=== PATIENT | male | born 1975 | race Caucasian/White ===

== ENCOUNTER 2020-08-22 15:42 | Outpatient (REF) | payer OTHER, SELFPAY | END 2020-08-22 15:43 | disposition home or self-care (01) | LOC: HO.BBR 15:42 | PROVIDERS: PCP Internal Medicine; Visit Provider Internal Medicine | DX: Z13.89 Encounter for screening for other disorder (principal) ==

== ENCOUNTER 2020-09-23 15:38 | Outpatient (REF) | payer OTHER, SELFPAY | END 2020-09-23 15:39 | disposition home or self-care (01) | LOC: HO.BBR 15:38 | PROVIDERS: Visit Provider Internal Medicine | DX: Z13.89 Encounter for screening for other disorder (principal) ==

== ENCOUNTER 2020-10-07 15:37 | Outpatient (REF) | payer OTHER, SELFPAY | END 2020-10-07 15:38 | disposition home or self-care (01) | LOC: HO.BBR 15:37 | PROVIDERS: Visit Provider Internal Medicine | DX: Z13.89 Encounter for screening for other disorder (principal) ==

== ENCOUNTER 2020-11-29 10:24 | Outpatient (REF) | payer OTHER, SELFPAY ==
[2020-11-29 11:15] LABS: MANUAL DIFF FLAG NO
[2020-11-29 11:19] LABS: Basophils Absolute Auto 0.1 X10*3/uL (0.0-0.2); Basophils Percent Auto 1.1 % (0-2); Eosinophils Absolute Auto 0.1 X10*3/uL (0.0-0.4); Eosinophils Percent Auto 2.7 % (0-4); Hematocrit 45.5 % (42-52); Hemoglobin 16.6 g/dl (14.0-18.0); Imm Gran Abs Auto 0.02 X10*3/uL (0.00-0.03); Imm Gran Pct Auto 0.4 % (0.0-0.4); Lymphocytes Percent Auto 37.2 % (20-40); Mean Corpuscular HGB Conc 36.5 g/dl (31.0-36.0); Mean Corpuscular Hemoglobin 31.7 pg (27.0-33.0); Mean Platelet Volume 8.7 fL (9.4-12.4); Monocytes Absolute Auto 0.4 X10*3/uL (0.1-1.2); Monocytes Percent Auto 6.7 % (2-11); Neutrophils Absolute Auto 2.7 X10*3/uL (2.0-8.3); Neutrophils Percent Auto 51.9 % (45-73); Platelet Count 232 X10*3/uL (160-400); Red Blood Count 5.23 X10*6/uL (4.60-5.80); Red Cell Distribution Width 12.2 % (11.0-16.0); White Blood Count 5.2 X10*3/uL (4.8-10.8)
[2020-11-29 11:44] LABS: Alanine Aminotransferase 31 U/L (0-40); Albumin Level 4.9 g/dL (3.5-5.0); Alkaline Phosphatase 79 U/L (39-117); Anion Gap 12 (12-20); Aspartate Amino Transferase 19 U/L (5-37); Bilirubin Total 1.4 mg/dL (0.0-1.0); Blood Urea Nitrogen 15 mg/dL (9-16); Calcium 9.9 mg/dL (8.4-10.2); Carbon Dioxide 28 mmol/L (22-29); Chloride 104 mmol/L (96-108); Cholesterol 203 mg/dL; Estimated Glomerular Filt Rate > 60; Glucose Fasting 93 mg/dL (60-99); HDL Cholesterol 39 mg/dL; LDL Cholesterol Calculated 115 mg/dl; Potassium 4.4 mmol/L (3.3-5.1); Sodium 140 mmol/L (135-145); Total Protein 7.3 g/dL (6.5-8.0); Triglycerides 249 mg/dL
[2020-11-29 12:26] LABS: Ferritin 285 ng/mL (20-250)
== END 2020-11-29 10:25 | disposition home or self-care (01) ==
LOC: HO.LAB 10:24
PROVIDERS: PCP Internal Medicine; Visit Provider Internal Medicine
DX: Z00.00 Encounter for general adult medical examination without abnormal findings (principal); D64.9 Anemia, unspecified; E11.9 Type 2 diabetes mellitus without complications
CPT/HCPCS: 36415; 80053; 80061; 82728; 85025

== ENCOUNTER → 2020-12-02 08:45 | Outpatient (BNV) | payer OTHER, SELFPAY | PROVIDERS: PCP Internal Medicine; Visit Provider Internal Medicine Medical Oncology | DX: E83.119 Hemochromatosis, unspecified (principal) | CPT/HCPCS: 99204; 99213; 99214 ==

== ENCOUNTER 2020-12-17 14:31 | Outpatient (REF) | payer OTHER, SELFPAY ==
[2020-12-17 16:10] LABS: Iron 281 mcg/dL (45-160); Unsaturated Iron Binding < 17 ug/dL
[2020-12-19 11:36] LABS: Alpha Fetoprotein 1.8 ng/mL (<6.1)
== END 2020-12-17 14:32 | disposition home or self-care (01) ==
LOC: HO.BBR 14:31
PROVIDERS: Visit Provider Internal Medicine Medical Oncology
DX: E83.110 Hereditary hemochromatosis (principal)
CPT/HCPCS: 36415; 82105; 83540

== ENCOUNTER 2021-02-16 14:27 | Outpatient (REF) | payer OTHER, SELFPAY | END 2021-02-16 14:28 | disposition home or self-care (01) | LOC: HO.BBR 14:27 | PROVIDERS: PCP Internal Medicine; Visit Provider Internal Medicine Medical Oncology | DX: Z13.89 Encounter for screening for other disorder (principal) ==

== ENCOUNTER 2021-04-13 15:29 | Outpatient (REF) | payer OTHER, SELFPAY | END 2021-04-13 15:30 | disposition home or self-care (01) | LOC: HO.BBR 15:29 | PROVIDERS: Visit Provider Internal Medicine Medical Oncology | DX: Z13.89 Encounter for screening for other disorder (principal) ==

== ENCOUNTER 2021-06-04 09:04 | Outpatient (REF) | payer OTHER, SELFPAY ==
[2021-06-04 09:45] LABS: MANUAL DIFF FLAG NO
[2021-06-04 09:50] LABS: Basophils Absolute Auto 0.1 X10*3/uL (0.0-0.2); Basophils Percent Auto 1.2 % (0-2); Eosinophils Absolute Auto 0.1 X10*3/uL (0.0-0.4); Eosinophils Percent Auto 2.2 % (0-4); Hematocrit 43.1 % (42.0-52.0); Imm Gran Abs Auto 0.02 X10*3/uL (0.00-0.03); Imm Gran Pct Auto 0.4 % (0.0-0.4); Lymphocytes Absolute Auto 1.5 X10*3/uL (1.2-4.9); Lymphocytes Percent Auto 29.4 % (20-40); Mean Corpuscular HGB Conc 37.1 g/dl (31.0-36.0); Mean Corpuscular Hemoglobin 32.3 pg (27.0-33.0); Mean Corpuscular Volume 86.9 fL (80.0-98.0); Mean Platelet Volume 8.5 fL (9.4-12.4); Monocytes Absolute Auto 0.3 X10*3/uL (0.1-1.2); Monocytes Percent Auto 5.6 % (2-11); Neutrophils Percent Auto 61.2 % (45-73); Platelet Count 196 X10*3/uL (160-400); Red Blood Count 4.96 X10*6/uL (4.60-5.80); Red Cell Distribution Width 11.9 % (11.0-16.0)
[2021-06-04 10:20] LABS: Alanine Aminotransferase 39 U/L (0-40); Albumin Level 4.4 g/dL (3.5-5.0); Alkaline Phosphatase 74 U/L (39-117); Anion Gap 13 (12-20); Aspartate Amino Transferase 23 U/L (5-37); Bilirubin Total 1.3 mg/dL (0.0-1.0); Blood Urea Nitrogen 18 mg/dL (9-16); Calcium 9.3 mg/dL (8.4-10.2); Carbon Dioxide 26 mmol/L (22-29); Chloride 105 mmol/L (96-108); Estimated Glomerular Filt Rate > 60; Glucose Random 136 mg/dL (60-115); Iron 288 mcg/dL (45-160); Sodium 140 mmol/L (135-145); Total Protein 6.7 g/dL (6.5-8.0); Unsaturated Iron Binding < 17 ug/dL
[2021-06-04 10:40] LABS: Ferritin 274 ng/mL (20-250)
[2021-06-09 13:02] LABS: Alpha Fetoprotein 2.2 ng/mL (<6.1)
== END 2021-06-04 09:05 | disposition home or self-care (01) ==
LOC: HO.BBR 09:04
PROVIDERS: PCP Internal Medicine; Visit Provider Internal Medicine Medical Oncology
DX: E83.110 Hereditary hemochromatosis (principal)
CPT/HCPCS: 36415; 80053; 82105; 82728; 83540; 85025

== ENCOUNTER 2021-08-25 15:32 | Outpatient (REF) | payer OTHER, SELFPAY | END 2021-08-25 15:33 | disposition home or self-care (01) | LOC: HO.BBR 15:32 | PROVIDERS: Visit Provider Internal Medicine Medical Oncology | DX: Z13.89 Encounter for screening for other disorder (principal) ==

== ENCOUNTER 2021-10-27 15:35 | Outpatient (REF) | payer OTHER, SELFPAY | END 2021-10-27 15:36 | disposition home or self-care (01) | LOC: HO.BBR 15:35 | PROVIDERS: Visit Provider Internal Medicine Medical Oncology | DX: Z13.89 Encounter for screening for other disorder (principal) ==

== ENCOUNTER 2022-01-05 15:28 | Outpatient (REF) | payer OTHER, SELFPAY ==
[2022-01-05 16:48] LABS: Iron 304 mcg/dL (45-160); Total Iron Binding Capacity < 321 mcg/dL (228-428); Unsaturated Iron Binding < 17 ug/dL
[2022-01-05 17:08] LABS: Ferritin 164 ng/mL (20-250)
== END 2022-01-05 15:29 | disposition home or self-care (01) ==
LOC: HO.BBR 15:28
PROVIDERS: Visit Provider Internal Medicine Medical Oncology
DX: E83.110 Hereditary hemochromatosis (principal)
CPT/HCPCS: 36415; 82728; 83540

== ENCOUNTER 2022-03-13 09:43 | Outpatient (REF) | payer OTHER, SELFPAY ==
[2022-03-13 11:04] LABS: Alanine Aminotransferase 41 U/L (0-40); Albumin Level 4.7 g/dL (3.5-5.0); Alkaline Phosphatase 81 U/L (39-117); Anion Gap 15 (12-20); Aspartate Amino Transferase 26 U/L (5-37); Bilirubin Total 1.2 mg/dL (0.0-1.0); Blood Urea Nitrogen 16 mg/dL (9-16); Calcium 9.3 mg/dL (8.4-10.2); Carbon Dioxide 22 mmol/L (22-29); Chloride 107 mmol/L (96-108); Cholesterol 222 mg/dL; Estimated Glomerular Filt Rate > 60; Glucose Fasting 106 mg/dL (60-99); HDL Cholesterol 39 mg/dL; LDL Cholesterol Calculated 138 mg/dl; Potassium 4.1 mmol/L (3.3-5.1); Sodium 140 mmol/L (135-145); Total Protein 7.2 g/dL (6.5-8.0); Triglycerides 225 mg/dL
== END 2022-03-13 09:44 | disposition home or self-care (01) ==
LOC: HO.LAB 09:43
PROVIDERS: PCP Internal Medicine; Visit Provider Internal Medicine
DX: I10 Essential (primary) hypertension (principal); E78.5 Hyperlipidemia, unspecified
CPT/HCPCS: 36415; 80053; 80061

== ENCOUNTER 2022-05-25 14:50 | Outpatient (REF) | payer OTHER, SELFPAY ==
[2022-05-25 16:47] LABS: Iron 299 mcg/dL (45-160); Percent Iron Saturation 95 % (15-50); Total Iron Binding Capacity 316 mcg/dL (228-428); Unsaturated Iron Binding 17 ug/dL
[2022-05-25 17:07] LABS: Ferritin 248 ng/mL (20-250)
== END 2022-05-25 14:51 | disposition home or self-care (01) ==
LOC: HO.BBR 14:50
PROVIDERS: Visit Provider Internal Medicine Medical Oncology
DX: E83.110 Hereditary hemochromatosis (principal)
CPT/HCPCS: 36415; 82728; 83540

== ENCOUNTER 2022-08-03 15:30 | Outpatient (REF) | payer OTHER, SELFPAY | END 2022-08-03 15:31 | disposition home or self-care (01) | LOC: HO.BBR 15:30 | PROVIDERS: PCP Internal Medicine; Visit Provider Internal Medicine Medical Oncology | DX: Z13.89 Encounter for screening for other disorder (principal) ==

== ENCOUNTER 2022-10-14 14:33 | Outpatient (REF) | payer OTHER, SELFPAY ==
--- NOTE | ~2022-10-14 | XR_ITS ---
EXAMINATION: XR lumbar spine 2-3V CLINICAL INFORMATION: Reason for Exam M54.9 - Dorsalgia, unspecified COMPARISON: None TECHNIQUE: 3 views of the lumbar spine FINDINGS: 5 nonrib-bearing lumbar-type vertebral bodies. Vertebral body heights are maintained. Alignment is maintained. Disc space heights are maintained. Paravertebral soft tissues are unremarkable. XR/XR lumbar spine 2-3V IMPRESSION: No significant spondylosis of the lumbar spine, as above detailed.
== END 2022-10-14 14:34 | disposition home or self-care (01) ==
LOC: HO.XRAY 14:33
PROVIDERS: Visit Provider Internal Medicine
DX: M54.9 Dorsalgia, unspecified (principal)
CPT/HCPCS: 72100

== ENCOUNTER 2022-11-29 15:36 | Outpatient (REF) | payer OTHER, SELFPAY | END 2022-11-29 15:37 | disposition home or self-care (01) | LOC: HO.BBR 15:36 | PROVIDERS: PCP Internal Medicine; Visit Provider Internal Medicine Medical Oncology | DX: Z13.89 Encounter for screening for other disorder (principal) ==

== ENCOUNTER 2023-01-05 07:36 | Emergency (ER) | payer OTHER, SELFPAY ==
--- NOTE | ~2023-01-05 | XR_ITS ---
EXAMINATION: XR CHEST CLINICAL INFORMATION: Dizziness and low blood pressure COMPARISON: None available. TECHNIQUE: 2 views of the chest were obtained. FINDINGS: No significant abnormality is noted involving the heart, lungs, mediastinum, bony thorax or soft tissues. XR/XR chest 2V IMPRESSION: Unremarkable examination.
--- NOTE | ~2023-01-05 | CT_ITS ---
EXAMINATION: CT ABDOMEN AND PELVIS WITHOUT CONTRAST CLINICAL INFORMATION: 47-year-old male with bilateral flank pain COMPARISON: None available. TECHNIQUE: Multidetector volumetric imaging was performed from the superior aspect of the liver through the pubic symphysis. Sagittal and coronal reformatted images were obtained on the technologist's workstation. This CT examination was performed using dose optimization techniques as appropriate, variously including the following: *Automated exposure control *Adjustment of mA and/or kV according to patient size (this includes techniques or standardized protocols for targeted exams where dose is matched to indication/reason for exam; i.e. extremities or head) *Use of iterative reconstruction technique DLP: 615 mGy-cm FINDINGS: LUNG BASES: The visualized lung bases are unremarkable. LIVER, GALLBLADDER, AND BILIARY TREE: Liver is of low attenuation due to hepatic steatosis without intrahepatic masses or ductal dilatation. The gallbladder is unremarkable with no evidence of radiopaque gallstones, gallbladder wall thickening, or obvious pericholecystic inflammatory changes. PANCREAS: Unremarkable SPLEEN: Measures 15 cm, enlarged ADRENAL GLANDS: Unremarkable. KIDNEYS AND URETERS: The kidneys are normal in size, shape, and attenuation. No hydronephrosis, hydroureter, or calculi seen. No perinephric stranding. BLADDER: Bladder is decompressed, limited for evaluation GASTROINTESTINAL TRACT: The small and large bowel are unremarkable. The appendix is unremarkable. ABDOMINAL WALL: No significant hernia is appreciated. LYMPH NODES: Normal. VASCULAR: Unremarkable. PELVIC VISCERA: Unremarkable. OSSEOUS STRUCTURES: Unremarkable. CT/CT abdomen pelvis wo IV con IMPRESSION: Hepatic steatosis and splenomegaly. Fleischner guidelines were followed.
--- NOTE | 2023-01-05 07:42 | ED.GENADULT ---
HPI - General Adult General Chief complaint: Dizziness Stated complaint: ? BP dropped, fatigue, dizzy, SOB Time Seen by Provider: 01/05/23 07:42 Source: patient Mode of arrival: ambulatory Limitations: no limitations History of Present Illness HPI narrative: Patient is a 47 year old male with a history of hypertension and hemachromatosis presenting today after an episode of dizziness. He reports that on Tuesday (01/03), he felt fatigued and experienced increased urination. Yesterday, he had a fever and endorsed continued nocturia without polydipsia. Patient also states that he experienced a near syncopal episode and was found by his sitting on the floor. His took his blood pressure and it was 91/84. He reports associated symptoms of shortness of breath, chronic back pain and fatigue. Additionally, his tells me that he had a strawberry rash on his right flank in November that resolved on its own. He denies abdominal pain, fever, chills, cough or congestion. He reports no acute concerns at this time. Onset (ago): day(s) Severity: mild Severity scale (1-10): 3 Relieving factors: none Exacerbating factors: none Associated symptoms: denies other symptoms Treatments prior to arrival: none Related Data Previous Rx's Medication Instructions Recorded albuterol sulfate 90 mcg/actuation 2 puff PO Q6H PRN bronchospasm #18 04/09/22 aerosol inhaler (ProAir HFA) grams tramadol 50 mg tablet 50 mg PO Q8H PRN pain #20 tabs 10/14/22 naproxen 500 mg tablet (Naprosyn) 500 mg PO BID PRN pain #60 tabs 10/15/22 prednisone 20 mg tablet 20 mg PO DAILY 7 days #7 tabs 01/05/23 Allergies Allergy/AdvReac Type Severity Reaction Status Date / Time No Known Allergies Allergy Verified 01/05/23 07:49 Review of Systems Constitutional: Constitutional: Reports no additional constitutional complaints, Denies chills, Denies fever(s) and Denies night sweats Eyes: Eyes: Reports no additional eye complaints, Denies blurry vision, Denies change in vision, Denies diplopia, Denies eye discharge, Denies loss of vision and Denies eye pain ENT: Reports dizziness Cardiovascular: Cardiovascular: Reports no additional cardiovascular complaints, Denies chest pain, Denies lightheadedness, Denies Loss of Consciousness and Denies dyspnea Respiratory: Respiratory: Reports no additional respiratory complaints and Denies dyspnea Gastrointestinal: Gastrointestinal: Reports no additional gastrointestinal complaints, Denies abdominal pain, Denies melena, Denies hematochezia, Denies change in bowel habits and Denies change in stool character Genitourinary: Genitourinary: Reports no additional male genitourinary complaints, Denies hematuria, Denies oliguria, Denies difficulty urinating, Denies dysuria, Denies urinary frequency, Denies urinary hesitancy, Denies urinary incontinence and Denies urinary urgency Musculoskeletal: Musculoskeletal: Reports no additional musculoskeletal complaints, Reports back pain, Denies numbness and Denies tingling Neurologic: Reports dizziness, Denies loss of vision, Denies numbness and Denies tingling Psychiatric: Psychiatric: Reports no additional psychiatric complaints Endocrine: Endocrine: Reports no additional endocrine complaints Hematologic/Lymphatic: Hematologic/Lymphatic: Reports no additional hematologic/lymphatic complaints Allergic/Immunologic: Allergic/Immunologic: Reports no additional allergic/immunologic complaints PMFSH Past Medical History Attestation statement: The following information was validated with the patient. (patient's validated all information) Source: old records reviewed, obtained from family (patient's ) and nursing notes reviewed Medical History Hemochromatosis Obesity Surgical History History of colonoscopy History of endoscopy History of liver biopsy Family History Family History Mother No problems noted. Father Colon cancer Heart disease Hypertension Paternal Aunt Breast cancer Social History Social History Household Members: None Housing: Apartment Are you a primary veterinarian laboratory animal care to a significant other at home: No Do you presently have visiting nurse or other home services: No Alcohol intake: current Alcohol intake frequency: holidays/special occasions only Patient Tobacco Use Status: Never used Tobacco e-Cigarette/Vaping Use: Never Used Second Hand Smoke Exposure: No Substance Use Type: Marijuana Advance Directives: No Advance Directives Information Provided: Yes service: Yes Current occupational status: employed Cognitive needs: No Hearing needs: No Vision needs: No Physical Exam ED Vital Signs: Vital Signs - 24 hr 01/05/23 07:46 01/05/23 09:18 01/05/23 09:19 Temperature 98.4 F Pulse Rate 110 H 84 76 Respiratory Rate 19 Blood Pressure 131/86 116/81 107/69 Pulse Oximetry 98 Oxygen Delivery Method Room Air 01/05/23 09:20 01/05/23 10:59 Temperature Pulse Rate 88 78 Respiratory Rate 18 Blood Pressure 101/74 111/71 Pulse Oximetry 98 Oxygen Delivery Method BMI result Body Mass Index 31.8 Const General: cooperative, no acute distress, alert and awake Nutritional Appearance: well nourished Orientation/consciousness: patient oriented x3 Limitations: no limitations HENMT Head: Yes normal to inspection and Yes atraumatic Ears: hearing grossly normal bilaterally and external ears normal General nose exam: Normal external nose present, no nasal discharge noted and no epistaxis Face and sinus: Yes normal facial exam, No abrasion and No laceration Mouth: Normal oral and palatal mucosa present, no drooling and no muffled voice Eyes General: appearance normal, both eyes and all related structures Periorbital: periorbital findings normal Eyelids: Yes eyelids normal Conjunctivae: conjunctivae normal Pupils: Equal, round and reactive pupils present EOM: EOMs intact bilaterally Neck Neck: Yes normal visual inspection, Yes full ROM and Yes no lymphadenopathy Chest Chest palpation & inspection: normal inspection of the chest Resp Effort & Inspection: normal respiratory effort and able to speak in complete sentences Auscultation: clear to auscultation bilaterally Cardio Rate: regular rate Rhythm: regular rhythm Heart sounds: S1 normal heart sound present and S2 normal heart sound present GI Inspection: Yes normal to inspection Palpation (GI): Soft to palpation, not firm, nontender and no guarding General: Yes no CVA tenderness Back/Spine/Pelvis Back: no CVA tenderness Cervical Spine: normal cervical lordosis and cervical ROM normal Thoracic/Lumbar Spine: thoracic and lumbar spine normal to inspection and thoraco-lumbar ROM normal Pelvis: no pain with anterior-posterior compression Skin General skin exam: no rashes or lesions noted Neuro General: patient oriented x3 and moves all extremities Cranial nerves: Yes Equal, round and reactive pupils present Cognition (Neuro): normal cognition Motor exam (neuro): 5/5 motor strength present throughout Sensory Exam: Normal double simultaneous stimulation for sensation Coordination: [id number] test normal Extrem General: Yes normal to inspection and Yes full ROM Psych Appearance: grossly normal Mental Status: mental status grossly normal Affect: normal affect Attitude: cooperative Thought process: Normal thought process present Thought content: Normal thought content present Insight: Good insight present (Psych) Medications Administered Discontinued Medications Generic Name Dose Route Start Last Admin Trade Name Jelaniq PRN Reason Stop Dose Admin Sodium Chloride 1,000 mls @ 999 mls/hr 01/05/23 08:00 01/05/23 09:33 Ns IV 01/05/23 09:00 999 mls/hr .Q1H1M [facility] Administration Medical Decision Making Medical Decision Making [facility] Narrative: Patient is a 47 year old assigned male at with a history of hypertension and hemachromatosis presenting to the emergency department today after an episode of dizziness. Patient's physical exam was unremarkable. Patient's blood work was unremarkable. Patient's urine showed no acute process. Patient's EKG was unremarkable. Patient's chest x-ray and abdomen/pelvis CT showed no acute process. I explained my physical exam findings as well as all test results to the patient and the patient's . I answered all questions asked by the patient and the patient's . Patient received IV fluids which he stated helped his symptoms significantly. Patient's orthostatic vital signs were normal. I stressed the importance of the patient taking his medication as prescribed. I stressed the importance of the patient following up with his primary care provider. I stressed the importance of the patient returning to the emergency department immediately if his symptoms were to worsen or if he were to develop any dizziness, shortness of breath, difficulty breathing, chest pain, blurry vision, loss of vision, nausea, vomiting, abdominal pain, fever, chills, back pain, or any other complaints. Patient and the patient's verbalized agreement and understanding with this treatment plan and discharge. Differential Diagnosis Differential Diagnoses: The differential diagnosis associated with the presentation includes viral illness, dehydration Admission/Observation Consideration of admission/observation: Escalation of care including admission/observation considered Patient would have been admitted to the hospital had his work up had any findings where hospital admission was appropriate. Lab Data [facility] Lab Attestation statement: I reviewed the patient's lab results. My interpretation of these studies and their corresponding values is that they are grossly normal. 01/05/23 08:50 01/05/23 08:50 Labs: Lab Results 01/05/23 01/05/23 01/05/23 Range/Units 08:50 08:50 08:50 WBC 6.1 (4.8-10.8) X10*3/uL RBC 4.56 L (4.60-5.80) X10*6/uL Hgb 14.4 (14.0-18.0) g/dl Hct 39.9 L (42.0-52.0) % MCV 87.5 (80.0-98.0) fL MCH 31.6 (27.0-33.0) pg MCHC 36.1 H (31.0-36.0) g/dl RDW 13.2 (11.0-16.0) % Plt Count 194 (160-400) X10*3/uL MPV 8.2 L (9.4-12.4) fL Immature Gran % (Auto) 0.3 (0.0-0.4) % Neut % (Auto) 65.2 (45-73) % Lymph % (Auto) 19.2 L (20-40) % [place] % (Auto) 12.5 H (2-11) % Eos % (Auto) 2.0 (0-4) % Baso % (Auto) 0.8 (0-2) % Lymph # (Auto) 1.2 (1.2-4.9) X10*3/uL [place] # (Auto) 0.8 (0.1-1.2) X10*3/uL Eos # (Auto) 0.1 (0.0-0.4) X10*3/uL Baso # (Auto) 0.1 (0.0-0.2) X10*3/uL Abs Immat Gran (auto) 0.02 (0.00-0.03) X10*3/uL Absolute Neuts (auto) 4.0 (2.0-8.3) x10*3/uL Absolute Nucleated RBC 0.000 (0.0-0.012) X10*3/uL Nucleated RBC % (auto) 0.0 (0.0-0.2) /100WBC Sodium 140 (135-145) mmol/L Potassium 4.5 (3.3-5.1) mmol/L Chloride 106 (96-108) mmol/L Carbon Dioxide 24 (22-29) mmol/L Anion Gap 15 (12-20) BUN 15 (9-16) mg/dL Creatinine 0.80 (0.5-1.4) mg/dL Estim Creat Clear Calc 123.5 Estimated GFR > 60 Random Glucose 100 (60-115) mg/dL Estimat Average Glucose mg/dL Hemoglobin A1c % % Calcium 9.3 D (8.4-10.2) mg/dL Magnesium 2.1 (1.6-2.6) mg/dL Total Bilirubin 2.7 H (0.0-1.0) mg/dL AST 28 (5-37) U/L ALT 32 (0-40) U/L Alkaline Phosphatase 68 (39-117) U/L Total Creatine Kinase (38-174) U/L Troponin I High Sens < 2.7 (<3.5-35.0) ng/L Total Protein 6.9 (6.5-8.0) g/dL Albumin 4.3 (3.5-5.0) g/dL Lipase (8-78) U/L Urine Color Urine Appearance Urine pH (5.0-9.0) Ur Specific [place] (1.005-1.025) Urine Protein (Neg-Trace) mg/dL Urine Glucose (UA) (Negative) mg/dL Urine Ketones (Negative) mg/dL Urine Blood (Negative) Urine Nitrite (Negative) Ur Leukocyte Esterase (Negative) Urine RBC (0-2) /HPF Urine WBC (0-5) /HPF Ur Squamous Epith Cells (0-2) /HPF Urine Bacteria (None Seen) Hyaline Casts (0-2) /LPF COVID-19 (VASILE) (Negative) COVID-19 Clin Com Monoscreen (Negative) S. pyogenes GrpA BHARAT (Negative) 01/05/23 01/05/23 01/05/23 Range/Units 08:50 08:50 08:54 WBC (4.8-10.8) X10*3/uL RBC (4.60-5.80) X10*6/uL Hgb (14.0-18.0) g/dl Hct (42.0-52.0) % MCV (80.0-98.0) fL MCH (27.0-33.0) pg MCHC (31.0-36.0) g/dl RDW (11.0-16.0) % Plt Count (160-400) X10*3/uL MPV (9.4-12.4) fL Immature Gran % (Auto) (0.0-0.4) % Neut % (Auto) (45-73) % Lymph % (Auto) (20-40) % [place] % (Auto) (2-11) % Eos % (Auto) (0-4) % Baso % (Auto) (0-2) % Lymph # (Auto) (1.2-4.9) X10*3/uL [place] # (Auto) (0.1-1.2) X10*3/uL Eos # (Auto) (0.0-0.4) X10*3/uL Baso # (Auto) (0.0-0.2) X10*3/uL Abs Immat Gran (auto) (0.00-0.03) X10*3/uL Absolute Neuts (auto) (2.0-8.3) x10*3/uL Absolute Nucleated RBC (0.0-0.012) X10*3/uL Nucleated RBC % (auto) (0.0-0.2) /100WBC Sodium (135-145) mmol/L Potassium (3.3-5.1) mmol/L Chloride (96-108) mmol/L Carbon Dioxide (22-29) mmol/L Anion Gap (12-20) BUN (9-16) mg/dL Creatinine (0.5-1.4) mg/dL Estim Creat Clear Calc Estimated GFR Random Glucose (60-115) mg/dL Estimat Average Glucose 68 mg/dL Hemoglobin A1c % 4.0 % Calcium (8.4-10.2) mg/dL Magnesium (1.6-2.6) mg/dL Total Bilirubin (0.0-1.0) mg/dL AST (5-37) U/L ALT (0-40) U/L Alkaline Phosphatase (39-117) U/L Total Creatine Kinase (38-174) U/L Troponin I High Sens (<3.5-35.0) ng/L Total Protein (6.5-8.0) g/dL Albumin (3.5-5.0) g/dL Lipase (8-78) U/L Urine Color [place] A Urine Appearance Clear Urine pH 6.0 (5.0-9.0) Ur Specific [place] 1.025 (1.005-1.025) Urine Protein Trace (Neg-Trace) mg/dL Urine Glucose (UA) Negative (Negative) mg/dL Urine Ketones Trace (Negative) mg/dL Urine Blood Negative (Negative) Urine Nitrite Negative (Negative) Ur Leukocyte Esterase Trace H (Negative) Urine RBC 0-2 (0-2) /HPF Urine WBC 0-5 (0-5) /HPF Ur Squamous Epith Cells 0-2 (0-2) /HPF Urine Bacteria None Seen (None Seen) Hyaline Casts 3-5 (0-2) /LPF COVID-19 (VASILE) Negative (Negative) COVID-19 Clin Com See Note Monoscreen (Negative) S. pyogenes GrpA BHARAT (Negative) 01/05/23 01/05/23 01/05/23 Range/Units 09:40 09:40 09:40 WBC (4.8-10.8) X10*3/uL RBC (4.60-5.80) X10*6/uL Hgb (14.0-18.0) g/dl Hct (42.0-52.0) % MCV (80.0-98.0) fL MCH (27.0-33.0) pg MCHC (31.0-36.0) g/dl RDW (11.0-16.0) % Plt Count (160-400) X10*3/uL MPV (9.4-12.4) fL Immature Gran % (Auto) (0.0-0.4) % Neut % (Auto) (45-73) % Lymph % (Auto) (20-40) % [place] % (Auto) (2-11) % Eos % (Auto) (0-4) % Baso % (Auto) (0-2) % Lymph # (Auto) (1.2-4.9) X10*3/uL [place] # (Auto) (0.1-1.2) X10*3/uL Eos # (Auto) (0.0-0.4) X10*3/uL Baso # (Auto) (0.0-0.2) X10*3/uL Abs Immat Gran (auto) (0.00-0.03) X10*3/uL Absolute Neuts (auto) (2.0-8.3) x10*3/uL Absolute Nucleated RBC (0.0-0.012) X10*3/uL Nucleated RBC % (auto) (0.0-0.2) /100WBC Sodium (135-145) mmol/L Potassium (3.3-5.1) mmol/L Chloride (96-108) mmol/L Carbon Dioxide (22-29) mmol/L Anion Gap (12-20) BUN (9-16) mg/dL Creatinine (0.5-1.4) mg/dL Estim Creat Clear Calc Estimated GFR Random Glucose (60-115) mg/dL Estimat Average Glucose mg/dL Hemoglobin A1c % % Calcium (8.4-10.2) mg/dL Magnesium (1.6-2.6) mg/dL Total Bilirubin (0.0-1.0) mg/dL AST (5-37) U/L ALT (0-40) U/L Alkaline Phosphatase (39-117) U/L Total Creatine Kinase 36 L (38-174) U/L Troponin I High Sens (<3.5-35.0) ng/L Total Protein (6.5-8.0) g/dL Albumin (3.5-5.0) g/dL Lipase 23 (8-78) U/L Urine Color Urine Appearance Urine pH (5.0-9.0) Ur Specific [place] (1.005-1.025) Urine Protein (Neg-Trace) mg/dL Urine Glucose (UA) (Negative) mg/dL Urine Ketones (Negative) mg/dL Urine Blood (Negative) Urine Nitrite (Negative) Ur Leukocyte Esterase (Negative) Urine RBC (0-2) /HPF Urine WBC (0-5) /HPF Ur Squamous Epith Cells (0-2) /HPF Urine Bacteria (None Seen) Hyaline Casts (0-2) /LPF COVID-19 (VASILE) (Negative) COVID-19 Clin Com Monoscreen Negative (Negative) S. pyogenes GrpA BHARAT Negative (Negative) Independent Interpretation I performed an independent interpretation of an: EKG, Plain X-Ray and CT Scan Interpretation: Vent. Rate: 088 BPM ? ? Atrial Rate: 088 BPM P-R Int: 142 ms? QRS Dur: 086 ms QT Int: 344 ms ? ? ? P-R-T Axes: 034 -10 013 degrees QTc Int: 416 ms ? Normal sinus rhythm Normal ECG No previous ECGs available ? Electronically Signed By:SURJIT GONZALES MD Dictated By: Surjit Gonzales MD Signed By: Electronically signed by Surjit Gonzales MD 01/05/23 1149 My interpretation is in agreement with the radiologist's impression of this imaging study. EXAMINATION: XR CHEST CLINICAL INFORMATION: Dizziness and low blood pressure COMPARISON: None available. TECHNIQUE: 2 views of the chest were obtained. FINDINGS: No significant abnormality is noted involving the heart, lungs, mediastinum, bony thorax or soft tissues. XR/XR chest 2V IMPRESSION: Unremarkable examination. Dictated By: Jenn Ortiz MD Signed By: Electronically signed by Jenn Ortiz MD 01/05/23 0906 EXAMINATION: CT ABDOMEN AND PELVIS WITHOUT CONTRAST? CLINICAL INFORMATION: 47-year-old male with bilateral flank pain? COMPARISON: None available. TECHNIQUE: Multidetector volumetric imaging was performed from the superior aspect of the liver through the pubic symphysis. Sagittal and coronal reformatted images were obtained on the technologist's workstation.? This CT examination was performed using dose optimization techniques as appropriate, variously including the following: *Automated exposure control *Adjustment of mA and/or kV according to patient size (this includes techniques or standardized protocols for targeted exams where dose is matched to indication/reason for exam; i.e. extremities or head) *Use of iterative reconstruction technique DLP: 615 mGy-cm FINDINGS: LUNG BASES: The visualized lung bases are unremarkable.? LIVER, GALLBLADDER, AND BILIARY TREE: Liver is of low attenuation due to hepatic steatosis without intrahepatic masses or ductal dilatation. The gallbladder is unremarkable with no evidence of radiopaque gallstones, gallbladder wall thickening, or obvious pericholecystic inflammatory changes.? PANCREAS: Unremarkable? SPLEEN: Measures 15 cm, enlarged? ADRENAL GLANDS: Unremarkable.? KIDNEYS AND URETERS: The kidneys are normal in size, shape, and attenuation. No hydronephrosis, hydroureter, or calculi seen. No perinephric stranding. ? BLADDER: Bladder is decompressed, limited for evaluation? GASTROINTESTINAL TRACT: The small and large bowel are unremarkable. The appendix is unremarkable.? ABDOMINAL WALL: No significant hernia is appreciated.? LYMPH NODES: Normal. VASCULAR: Unremarkable. PELVIC VISCERA: Unremarkable.? OSSEOUS STRUCTURES: Unremarkable.? CT/CT abdomen pelvis wo IV con IMPRESSION: Hepatic steatosis and splenomegaly. ? Fleischner guidelines were followed. Dictated By: Jenn Ortiz MD Signed By: Electronically signed by Jenn Ortiz MD 01/05/23 0903 Independent Historian Clinical information obtained from an independent historian. History obtained from or confirmed by: Spouse (patient's provided additional history and confirmed the history provided by the patient) Chronic Conditions Patient?s care impacted by: Hypertension Critical Care Time Critical Care Time Critical Care Time: Yes Total Critical Care Time: 30 Attestation: I spent 30 minutes of Critical Care Time with this patient. This does not include time spent on separately reported billable procedures. Discharge Plan Discharge Clinical Impression: Viral illness Patient Disposition: Home, Self-Care Instructions: Viral Syndrome (ED) Additional Instructions: Follow up with your primary care provider. Return to the emergency department immediately if your symptoms worsen or if you develop any dizziness, shortness of breath, difficulty breathing, chest pain, blurry vision, loss of vision, nausea, vomiting, abdominal pain, fever, chills, back pain, or any other complaints. Prescriptions: New prednisone 20 mg tablet 20 mg PO DAILY 7 Days Qty: 7 0RF No Action naproxen [Naprosyn] 500 mg tablet 500 mg PO BID PRN (Reason: pain) Qty: 60 0RF albuterol sulfate [ProAir HFA] 90 mcg/actuation HFA aerosol inhaler 2 puff PO Q6H PRN (Reason: bronchospasm) Qty: 18 8RF tramadol 50 mg tablet 50 mg PO Q8H PRN (Reason: pain) Qty: 20 0RF Referrals: Nasir Castro MD [Primary Care Provider] - Stand Alone Forms: Work/School Release Interventions: ED Discharge Assessment Last Done: 01/05/23 11:01 Discharge Date/Time: 01/05/23 11:01 Print Language: Cam[place]onian
[2023-01-05 07:46] VITALS: BP 131/86; PULSE 110; RESP 19; TEMP 36.9; O2SAT 98; BMI 31.8
--- NOTE | 2023-01-05 07:48 | ECG_ITS ---
Test Reason : dizzy Blood Pressure : / mmHG Vent. Rate : 088 BPM Atrial Rate : 088 BPM P-R Int : 142 ms QRS Dur : 086 ms QT Int : 344 ms P-R-T Axes : 034 -10 013 degrees QTc Int : 416 ms Normal sinus rhythm Normal ECG No previous ECGs available Referred By: Daniella Jeffers Electronically Signed By:JOSE LUIS GONZALES MD
[2023-01-05 08:55] LABS: MANUAL DIFF FLAG NO
[2023-01-05 08:57] LABS: Basophils Absolute Auto 0.1 X10*3/uL (0.0-0.2); Basophils Percent Auto 0.8 % (0-2); Eosinophils Absolute Auto 0.1 X10*3/uL (0.0-0.4); Hematocrit 39.9 % (42.0-52.0); Hemoglobin 14.4 g/dl (14.0-18.0); Imm Gran Abs Auto 0.02 X10*3/uL (0.00-0.03); Imm Gran Pct Auto 0.3 % (0.0-0.4); Lymphocytes Absolute Auto 1.2 X10*3/uL (1.2-4.9); Lymphocytes Percent Auto 19.2 % (20-40); Mean Corpuscular HGB Conc 36.1 g/dl (31.0-36.0); Mean Corpuscular Hemoglobin 31.6 pg (27.0-33.0); Mean Corpuscular Volume 87.5 fL (80.0-98.0); Mean Platelet Volume 8.2 fL (9.4-12.4); Monocytes Absolute Auto 0.8 X10*3/uL (0.1-1.2); Monocytes Percent Auto 12.5 % (2-11); Neutrophils Percent Auto 65.2 % (45-73); Platelet Count 194 X10*3/uL (160-400); Red Blood Count 4.56 X10*6/uL (4.60-5.80); Red Cell Distribution Width 13.2 % (11.0-16.0); White Blood Count 6.1 X10*3/uL (4.8-10.8)
[2023-01-05 09:10] LABS: Appearance Urine Clear; Color Urine Orange; Glucose Urine UA Negative (Negative); Leukocyte Esterase Urine Trace (Negative); Nitrite Urine Negative (Negative); Specific Gravity - Urine 1.025 (1.005-1.025); UMIC TRIGGER UACC YES; Urine Blood Negative (Negative); Urine Ketones Trace mg/dL (Negative); Urine Protein Trace mg/dL (Neg-Trace)
[2023-01-05 09:10] LABS: Estimated Average Glucose 68 mg/dL
[2023-01-05 09:11] LABS: Alanine Aminotransferase 32 U/L (0-40); Albumin Level 4.3 g/dL (3.5-5.0); Alkaline Phosphatase 68 U/L (39-117); Anion Gap 15 (12-20); Aspartate Amino Transferase 28 U/L (5-37); Bilirubin Total 2.7 mg/dL (0.0-1.0); Blood Urea Nitrogen 15 mg/dL (9-16); Calcium 9.3 mg/dL (8.4-10.2); Carbon Dioxide 24 mmol/L (22-29); Chloride 106 mmol/L (96-108); Creatinine Clr Calc Pharmacy 123.5; Estimated Glomerular Filt Rate > 60; Glucose Random 100 mg/dL (60-115); Magnesium 2.1 mg/dL (1.6-2.6); Potassium 4.5 mmol/L (3.3-5.1); Sodium 140 mmol/L (135-145); Total Protein 6.9 g/dL (6.5-8.0)
[2023-01-05 09:13] LABS: Bacteria Urine None Seen (None Seen); RBC Urine 0-2 /HPF (0-2); Squamous Epithelial Cell Urine 0-2 /HPF (0-2); WBC Urine 0-5 /HPF (0-5)
[2023-01-05 09:17] LABS: COVID-19 Test Negative (Negative); IDNOW Serial# 9DB6401D
[2023-01-05 09:18] VITALS: BP 116/81; PULSE 84
[2023-01-05 09:19] VITALS: BP 107/69; PULSE 76
[2023-01-05 09:20] VITALS: BP 101/74; PULSE 88
[2023-01-05 09:22] LABS: Troponin-I High Sensitivity < 2.7 ng/L (<3.5-35.0)
[2023-01-05] MEDS: 0.9 % Sodium Chloride 1,000 ML 999 ML IV (09:33)
[2023-01-05 10:09] LABS: Lipase 23 U/L (8-78)
[2023-01-05 10:10] LABS: IDNOW Serial# 08D9AD1C; Strep A Nucleic Acid Negative (Negative)
[2023-01-05 10:20] LABS: Monotest Negative (Negative)
[2023-01-05 10:59] VITALS: BP 111/71; PULSE 78; RESP 18; O2SAT 98
--- NOTE | 2023-01-05 10:59 | PC.NURSE ---
alert. speech clear, still has some generalized weakness but improved, skin wpd, inst reviewed
[2023-01-08 14:53] LABS: A. Phagocytphilium DNA,RT-PCR NOT DETECTED (NOT DETECTED); Babesia Microti DNA, RT-PCR NOT DETECTED (NOT DETECTED); Borrelia Miyamotoi,DNA RT-PCR NOT DETECTED (NOT DETECTED); E.Chaffeensis DNA RT-PCR NOT DETECTED (NOT DETECTED); Lyme(Borrelia ssp)DNA RT-PCR NOT DETECTED (NOT DETECTED)
== END 2023-01-05 11:01 | disposition home or self-care (01) ==
PROVIDERS: Physician Assistant Medical; Emergency Provider Internal Medicine; PCP Internal Medicine
DX: B34.9 Viral infection, unspecified (principal); R42 Dizziness and giddiness; R35.1 Nocturia; M54.9 Dorsalgia, unspecified; R21 Rash and other nonspecific skin eruption; R06.02 Shortness of breath; I10 Essential (primary) hypertension; E83.119 Hemochromatosis, unspecified; Z20.822 Contact with and (suspected) exposure to COVID-19
CPT/HCPCS: 36415; 71046; 74176; 80053; 81001; 81003; 82550; 83036; 83690; 83735; 84484; 85025; 86308; 87635; 87651; 87798; 87801; 93005; 99284

== ENCOUNTER 2023-02-01 15:27 | Outpatient (REF) | payer OTHER, SELFPAY | END 2023-02-01 15:28 | disposition home or self-care (01) | LOC: HO.BBR 15:27 | PROVIDERS: PCP Internal Medicine; Visit Provider Internal Medicine Medical Oncology | DX: Z13.89 Encounter for screening for other disorder (principal) ==

== ENCOUNTER 2023-03-10 14:24 | Outpatient (AMB) | payer OTHER, SELFPAY ==
--- NOTE | 2023-03-10 14:37 | MHC.PC.OV ---
Vital Signs 03/10/23 14:38 Height 5 ft 7 in Weight 202 lb 4 oz BMI 31.7 BP 110/76 Blood Pressure Location Lt brachial Position Sitting Pulse 84 Pulse Source Pulse Oximeter Pulse Oximetry (%) 98 Oxygen Delivery Method Room Air Intake Visit Reasons: Annual Exam Intake Note: Patient is here today for a physical. Capacity Analyst Required: No Soaker Meat: Not Required per policy Accompanied by: Self / Same As Patient Allergies tramadol Allergy (Severe, Verified 03/10/23 14:41) Anaphylaxis Medication List - Last Reconciled 03/11/23 by Nasir Castro MD naproxen (Naprosyn) 500 mg PO BID PRN Tobacco use date assessed: 03/10/23 Dental Screening Dental Screen Date: 03/10/23 Did you have a dental visit in the last 12 months?: No Did you have a dental problem in the last 6 months where you did not have access to dental care?: No Was dental information given to patient?: No HPI Annual Exam HPI Details healthy [facility] Medical History Hemochromatosis Obesity Surgical History History of colonoscopy History of endoscopy History of liver biopsy Family History Mother No problems noted. Father Colon cancer Heart disease Hypertension Paternal Aunt Breast cancer Social History (Updated 03/10/23 @ 14:41 by JOANNE Simpson) Household Members: None Housing: Apartment Are you a primary campground caretaker to a significant other at home: No Do you presently have visiting nurse or other home services: No Alcohol intake: current Alcohol intake frequency: a few times a week Patient Tobacco Use Status: Never used Tobacco e-Cigarette/Vaping Use: Never Used Second Hand Smoke Exposure: No Substance Use Type: Marijuana service: Yes Current occupational status: employed Cognitive needs: No Hearing needs: No Vision needs: Yes (glasses) Questionnaire Thrive Questionnaire Date Thrive assessed: 10/14/22 YOUNG-7 AMB Questionnaire YOUNG-7 Date YOUNG - 7 assessed: 10/14/22 Source: Developed by Drs. Abraham Noguera, Ashley Kenny, Jonnie Saleh and colleagues, with an educational lincoln from [employer]. Review of Systems Const Denies chills, Denies fatigue, Denies headache(s) and Denies weight loss Eyes Denies change in vision, Denies diplopia and Denies eye pain ENT Denies vertigo, Denies dizziness, Denies headache(s) and Denies nasal discharge Card Denies chest pain, Denies rapid heart rate and Denies dyspnea on exertion Resp Denies chest congestion, Denies cough, Denies pain with cough and Denies dyspnea on exertion GI Denies abdominal pain, Denies hematochezia and Denies change in bowel habits Musc Denies myalgias, Denies arthralgias and Denies joint swelling Skin/Breast Denies lesions and Denies unusual bruising Neuro Denies vertigo, Denies dizziness, Denies headache(s) and Denies focal weakness Endo Denies fatigue Physical exam (Primary Care) Vital Signs: Last Vital Signs Pulse 84 03/10/23 14:38 BP 110/76 03/10/23 14:38 Pulse Ox 98 03/10/23 14:38 Oxygen Delivery Method Room Air 03/10/23 14:38 BMI result Body Mass Index 31.7 Tobacco/Smoking Status: Tobacco use Status Tobacco use date assessed 03/10/23 03/10/23 14:42 Patient Tobacco Use Status Never used Tobacco 03/10/23 14:42 e-Cigarette/Vaping Use Never Used 03/10/23 14:42 Thrive Assessment: Date of Thrive Assessment Date Thrive assessed 10/14/22 03/10/23 14:42 Const General: cooperative, healthy appearing and no acute distress Orientation/consciousness: oriented to person, oriented to place and oriented to time [facility] Head: Yes normal to inspection, Yes normocephalic and Yes atraumatic Mouth: Normal oral and palatal mucosa present and tongue normal Throat: Yes posterior oropharynx normal and Yes uvula midline Eyes General: appearance normal, both eyes and all related structures Neck Neck: Yes normal visual inspection, Yes full ROM and Yes no lymphadenopathy Thyroid: Thyroid normal Carotids: normal carotid upstroke Chest Chest palpation & inspection: normal inspection of the chest Resp Effort & Inspection: normal respiratory effort and able to speak in complete sentences Auscultation: clear to auscultation bilaterally Cardio Jugular venous distension: no JVD Palpation: normal PMI Rate: regular rate Rhythm: regular rhythm Heart sounds: S1 normal heart sound present and S2 normal heart sound present GI Inspection: Yes normal to inspection Palpation (GI): Soft to palpation and No hepatosplenomegaly present Auscultation: normal bowel sounds General: Yes no CVA tenderness Back/Spine/Pelvis Back: no CVA tenderness Skin General skin exam: no rashes or lesions noted Neuro General: oriented to person, oriented to place and oriented to time Extrem General: Yes normal to inspection and Yes full ROM Assessment and Plan Assessment & Plan (1) Physical exam: Code(s): Z00.00 - Encounter for general adult medical examination without abnormal findings Plan: stable; do labs Orders: Orders Comprehensive [place]. Panel Fast 03/10/23 N28.9 - Disorder of kidney and ureter, unspecified Lipid Panel 03/10/23 E78.5 - Hyperlipidemia, unspecified Thyroid Stimulating Hormone 03/10/23 E03.9 - Hypothyroidism, unspecified Complete Blood Count Auto Diff 03/10/23 D64.9 - Anemia, unspecified Coding Level of Care Code Est Pt Prev Care 40-64y(33368) Diagnoses Physical exam Z00.00
[2023-03-10 14:38] VITALS: BP 110/76; PULSE 84; O2SAT 98; BMI 31.7
== END 2023-03-10 14:52 | disposition home or self-care (01) ==
PROVIDERS: PCP Internal Medicine; Visit Provider Internal Medicine
DX: Z00.00 Encounter for general adult medical examination without abnormal findings (principal)
CPT/HCPCS: 99396

== ENCOUNTER 2023-03-19 09:02 | Outpatient (REF) | payer OTHER, SELFPAY ==
[2023-03-19 09:13] LABS: MANUAL DIFF FLAG NO
[2023-03-19 09:22] LABS: Basophils Absolute Auto 0.1 X10*3/uL (0.0-0.2); Basophils Percent Auto 0.9 % (0-2); Eosinophils Absolute Auto 0.2 X10*3/uL (0.0-0.4); Eosinophils Percent Auto 4.5 % (0-4); Hematocrit 46.4 % (42.0-52.0); Hemoglobin 16.8 g/dl (14.0-18.0); Imm Gran Abs Auto 0.03 X10*3/uL (0.00-0.03); Imm Gran Pct Auto 0.6 % (0.0-0.4); Lymphocytes Absolute Auto 2.3 X10*3/uL (1.2-4.9); Lymphocytes Percent Auto 43.1 % (20-40); Mean Corpuscular HGB Conc 36.2 g/dl (31.0-36.0); Mean Corpuscular Hemoglobin 31.3 pg (27.0-33.0); Mean Corpuscular Volume 86.6 fL (80.0-98.0); Monocytes Absolute Auto 0.4 X10*3/uL (0.1-1.2); Neutrophils Absolute Auto 2.3 x10*3/uL (2.0-8.3); Neutrophils Percent Auto 43.9 % (45-73); Platelet Count 244 X10*3/uL (160-400); Red Blood Count 5.36 X10*6/uL (4.60-5.80); Red Cell Distribution Width 12.1 % (11.0-16.0); White Blood Count 5.3 X10*3/uL (4.8-10.8)
[2023-03-19 10:18] LABS: Alanine Aminotransferase 28 U/L (0-40); Albumin Level 4.7 g/dL (3.5-5.0); Alkaline Phosphatase 82 U/L (39-117); Anion Gap 12 (12-20); Aspartate Amino Transferase 21 U/L (5-37); Bilirubin Total 1.3 mg/dL (0.0-1.0); Blood Urea Nitrogen 17 mg/dL (9-16); Carbon Dioxide 27 mmol/L (22-29); Chloride 106 mmol/L (96-108); Cholesterol 216 mg/dL (<200); Estimated Glomerular Filt Rate > 60; Glucose Fasting 84 mg/dL (60-99); HDL Cholesterol 41 mg/dL (>40); LDL Cholesterol Calculated 120 mg/dL (<100); Sodium 141 mmol/L (135-145); Total Protein 7.5 g/dL (6.5-8.0); Triglycerides 276 mg/dL (<150)
[2023-03-19 10:37] LABS: Thyroid Stimulating Hormone 1.32 uIU/mL (0.32-4.0)
== END 2023-03-19 09:03 | disposition home or self-care (01) ==
LOC: HO.LAB 09:02
PROVIDERS: PCP Internal Medicine; Visit Provider Internal Medicine
DX: E78.5 Hyperlipidemia, unspecified (principal); N28.9 Disorder of kidney and ureter, unspecified; E03.9 Hypothyroidism, unspecified; D64.9 Anemia, unspecified
CPT/HCPCS: 36415; 80053; 80061; 84443; 85025

== ENCOUNTER 2023-04-05 15:29 | Outpatient (REF) | payer OTHER, SELFPAY | END 2023-04-05 15:30 | disposition home or self-care (01) | LOC: HO.BBR 15:29 | PROVIDERS: PCP Internal Medicine; Visit Provider Internal Medicine Medical Oncology | DX: Z13.89 Encounter for screening for other disorder (principal) ==

== ENCOUNTER 2023-06-07 15:27 | Outpatient (REF) | payer OTHER, SELFPAY | END 2023-06-07 15:28 | disposition home or self-care (01) | LOC: HO.BBR 15:27 | PROVIDERS: PCP Internal Medicine; Visit Provider Internal Medicine Medical Oncology | DX: Z13.89 Encounter for screening for other disorder (principal) ==

== ENCOUNTER 2023-08-09 15:31 | Outpatient (REF) | payer OTHER, SELFPAY | END 2023-08-09 15:32 | disposition home or self-care (01) | LOC: HO.BBR 15:31 | PROVIDERS: PCP Internal Medicine; Visit Provider Internal Medicine Medical Oncology | DX: Z13.89 Encounter for screening for other disorder (principal) ==

== ENCOUNTER 2023-10-11 15:28 | Outpatient (REF) | payer OTHER, SELFPAY | END 2023-10-11 15:29 | disposition home or self-care (01) | LOC: HO.BBR 15:28 | PROVIDERS: PCP Internal Medicine; Visit Provider Internal Medicine Medical Oncology | DX: Z13.89 Encounter for screening for other disorder (principal) ==

== ENCOUNTER 2023-12-28 15:26 | Outpatient (REF) | payer OTHER, SELFPAY | END 2023-12-28 15:27 | disposition home or self-care (01) | LOC: HO.BBR 15:26 | PROVIDERS: PCP Internal Medicine; Visit Provider Internal Medicine Medical Oncology | DX: Z13.89 Encounter for screening for other disorder (principal) ==

== ENCOUNTER 2024-02-28 15:33 | Outpatient (REF) | payer OTHER, SELFPAY | END 2024-02-28 15:34 | disposition home or self-care (01) | LOC: HO.BBR 15:33 | PROVIDERS: PCP Internal Medicine; Visit Provider Internal Medicine Medical Oncology | DX: Z13.89 Encounter for screening for other disorder (principal) ==

== ENCOUNTER 2024-03-12 14:29 | Outpatient (AMB) | payer OTHER, SELFPAY ==
[2024-03-12 14:30] VITALS: BP 136/80; PULSE 92; O2SAT 94; BMI 32.3
--- NOTE | 2024-03-12 14:30 | A.OFFPC_ITS ---
Vital Signs 03/12/24 14:30 Height 5 ft 7 in Weight 206 lb BMI 32.3 BP 136/80 Blood Pressure Location Lt brachial Position Sitting Pulse 92 Pulse Source Pulse Oximeter Pulse Oximetry (%) 94 Oxygen Delivery Method Room Air Intake Visit Reasons: Annual exam Costume Rental Clerk Required: No Accompanied by: Self / Same As Patient Allergies tramadol Allergy (Severe, Verified 03/12/24 14:31) Anaphylaxis Medication List - Last Reconciled 03/13/24 by Nasir Castro MD benzonatate 100 mg PO TID PRN naproxen (Naprosyn) 500 mg PO BID PRN Tobacco use date assessed: 03/12/24 Dental Screening Dental Screen Date: 03/12/24 Did you have a dental visit in the last 12 months?: Yes Did you have a dental problem in the last 6 months where you did not have access to dental care?: No Was dental information given to patient?: Patient has dentist HPI Annual exam HPI Details healthy [facility] Medical History Hemochromatosis Obesity Surgical History History of colonoscopy History of endoscopy History of liver biopsy Family History Mother No problems noted. Father Colon cancer Heart disease Hypertension Paternal Aunt Breast cancer Social History Household Members: None Housing: Apartment Are you a primary restorative care technician to a significant other at home: No Do you presently have visiting nurse or other home services: No Alcohol intake: current Alcohol intake frequency: a few times a week Patient Tobacco Use Status: Never used Tobacco Tobacco use type: Cigarette e-Cigarette/Vaping Use: Never Used Second Hand Smoke Exposure: No Substance Use Type: Marijuana service: Yes Current occupational status: employed Cognitive needs: No Hearing needs: No Vision needs: Yes (glasses) Questionnaire PHQ-9 Over the last 2 weeks, how often have you been bothered by any of the following problems? 1. Little interest or pleasure in doing things: not at all 2. Feeling down, depressed, or hopeless: not at all 3. Trouble falling or staying asleep, or sleeping too much: not at all 4. Feeling tired or having little energy: not at all 5. Poor appetite or overeating: not at all 6. Feeling bad about yourself - or that you are a failure or have let yourself or your family down: not at all 7. Trouble concentrating on things, such as reading the newspaper or watching television: not at all 8. Moving or speaking so slowly that other people could have noticed. Or the opposite - being so fidgety or restless that you have been moving around a lot more than usual: not at all 9. Thoughts that you would be better off or of hurting yourself in some way: not at all Total score: 0 Depression Screening Interpretation: Negative Depression Screening Done: Yes 88449 - PHQ-9 Billing: Yes Source: Developed by Drs. Abraham Noguera, Ashley Kenny, Jonnie Saleh and colleagues, with an educational lincoln from [employer]. Thrive Questionnaire Date Thrive assessed: 10/14/22 I am a: Patient What is your living situation today?: I have a steady place to live Within the past 12 months, did the food you bought not last and you didn't have the money to get more?: Never true Within the past 12 months, did you worry whether your food would run out before you got money to buy more?: Never true Do you have trouble paying for medicines?: No Do you have trouble getting transportation to medical appointments?: No Do you have trouble paying your heating and electricity bill?: No Do you have trouble taking care of your child, family member or friend?: No Do you have trouble with day-to-day activities such as bathing, preparing meals, shopping, managing finances, etc.?: No Are you currently unemployed and looking for a job?: No Are you interested in more education?: No THRIVE Score: 0 AUDIT C Alcohol Use Questionnaire (AUDIT-C) 1. How often do you have a drink containing alcohol?: Monthly or less 2. How many drinks containing alcohol do you have on a typical day when you are drinking?: 3 or 4 3. How often do you have six or more drinks on one occasion?: Never Total Score: 2 Score Reviewed/Action Taken: Yes YOUNG-7 AMB Questionnaire YOUNG-7 Date YOUNG - 7 assessed: 03/12/24 Feeling nervous, anxious, or on edge: 0 = Not at all Not being able to stop or control worryin = Not at all Worrying too much about different things: 0 = Not at all Trouble relaxin = Not at all Being so restless that it is hard to sit still: 0 = Not at all Becoming easily annoyed or irritable: 0 = Not at all Feeling afraid as if something awful might happen: 0 = Not at all Total YOUNG-7 score (0-4 normal; 5-9 mild; 10-14 moderate; 15-21 severe): 0 Source: Developed by Drs. Abraham Noguera, Ashley Kenny, Jonnie Saleh and colleagues, with an educational lincoln from [employer]. YOUNG-7 Assessment Billing YOUNG-7 Assessment Tool: YOUNG-7 Assessment 57090 Review of Systems Const Denies chills, Denies fatigue, Denies headache(s) and Denies weight loss Eyes Denies change in vision, Denies diplopia and Denies eye pain ENT Denies vertigo, Denies dizziness, Denies headache(s) and Denies nasal discharge Card Denies chest pain, Denies rapid heart rate and Denies dyspnea on exertion Resp Denies chest congestion, Denies cough, Denies pain with cough and Denies dyspnea on exertion GI Denies abdominal pain, Denies hematochezia and Denies change in bowel habits Musc Denies myalgias, Denies arthralgias and Denies joint swelling Skin/Breast Denies lesions and Denies unusual bruising Neuro Denies vertigo, Denies dizziness, Denies headache(s) and Denies focal weakness Endo Denies fatigue Physical exam (Primary Care) Vital Signs: Last Vital Signs Pulse 92 03/12/24 14:30 BP 136/80 03/12/24 14:30 Pulse Ox 94 03/12/24 14:30 Oxygen Delivery Method Room Air 03/12/24 14:30 BMI result Body Mass Index 32.3 Tobacco/Smoking Status: Tobacco use Status Tobacco use date assessed 03/12/24 03/12/24 14:37 Patient Tobacco Use Status Never used Tobacco 03/12/24 14:37 Tobacco use type Cigarette 03/12/24 14:37 e-Cigarette/Vaping Use Never Used 03/12/24 14:37 PHQ-9: PHQ-9 Score PHQ-9: Total score 0 03/12/24 14:37 Depression Screening Interpretation: Negative Thrive Assessment: Date of Thrive Assessment Date Thrive assessed 10/14/22 03/12/24 14:37 Const General: cooperative, healthy appearing and no acute distress Orientation/consciousness: oriented to person, oriented to place and oriented to time HENMT Head: Yes normal to inspection, Yes normocephalic and Yes atraumatic Mouth: Normal oral and palatal mucosa present and tongue normal Throat: Yes posterior oropharynx normal and Yes uvula midline Eyes General: appearance normal, both eyes and all related structures Neck Neck: Yes normal visual inspection, Yes full ROM and Yes no lymphadenopathy Thyroid: Thyroid normal Carotids: normal carotid upstroke Chest Chest palpation & inspection: normal inspection of the chest Resp Effort & Inspection: normal respiratory effort and able to speak in complete sentences Auscultation: clear to auscultation bilaterally Cardio Jugular venous distension: no JVD Palpation: normal PMI Rate: regular rate Rhythm: regular rhythm Heart sounds: S1 normal heart sound present and S2 normal heart sound present GI Inspection: Yes normal to inspection Palpation (GI): Soft to palpation and No hepatosplenomegaly present Auscultation: normal bowel sounds General: Yes no CVA tenderness Back/Spine/Pelvis Back: no CVA tenderness Skin General skin exam: no rashes or lesions noted Neuro General: oriented to person, oriented to place and oriented to time Extrem General: Yes normal to inspection and Yes full ROM Assessment and Plan Assessment & Plan (1) Physical exam: Code(s): Z00.00 - Encounter for general adult medical examination without abnormal findings Plan: stable; do labs (2) Hemochromatosis: Code(s): E83.119 - Hemochromatosis, unspecified Plan: stable and follows with heme Orders: Orders Complete Blood Count Auto Diff 03/12/24 Z13.0 - Encounter for screening for diseases of the blood and blood-forming organs and certain disorders involving the immune mechanism XR chest 2V 03/12/24 R05.9 - Cough, unspecified COVID-19 ID NOW (Méndez) 03/12/24 R05.9 - Cough, unspecified Lipid Panel 03/12/24 Z13.220 - Encounter for screening for lipoid disorders Thyroid Stimulating Hormone 03/12/24 Z13.29 - Encounter for screening for other suspected endocrine disorder Comprehensive [place]. Panel Fast 03/12/24 Z13.9 - Encounter for screening, unspecified XR hip RT min 2V 03/12/24 M25.559 - Pain in unspecified hip Referrals Dermatology Referral R22.9 - Localized swelling, mass and lump, unspecified Medications: New naproxen (Naprosyn) 500 mg PO BID PRN 60 tabs 0RF pain benzonatate 100 mg PO TID PRN 60 caps 0RF cough Coding Level of Care Code Est Pt Prev Care 40-64y(86933) Diagnoses Physical exam Z00.00 Hemochromatosis E83.119 Additional Codes YOUNG-7 Assessment Billing - YOUNG-7 Assessment Tool: YOUNG-7 Assessment 10897 ([id number])
== END 2024-03-12 14:54 | disposition home or self-care (01) ==
PROVIDERS: PCP Internal Medicine; Visit Provider Internal Medicine
DX: Z00.00 Encounter for general adult medical examination without abnormal findings (principal); E83.119 Hemochromatosis, unspecified
CPT/HCPCS: 99396

== ENCOUNTER 2024-03-17 07:45 | Outpatient (REF) | payer OTHER, SELFPAY ==
--- NOTE | ~2024-03-17 | XR_ITS ---
EXAMINATION: XR HIP, RIGHT CLINICAL INFORMATION: Right hip pain and tightness radiating to the lower back. COMPARISON: None available. TECHNIQUE: Two views of the right hip. FINDINGS: No fracture. Alignment is anatomic. Hip joint space is maintained. Soft tissues are unremarkable. XR/XR hip RT min 2V IMPRESSION: Unremarkable examination. Electronically signed by: Maik Cerrato MD 03/23/2024 08:24 AM EDT
--- NOTE | ~2024-03-17 | XR_ITS ---
EXAMINATION: XR CHEST, 2 VIEWS CLINICAL INFORMATION: Hoarse, coughing. COMPARISON: 01/05/2023 TECHNIQUE: PA and lateral views of the chest were obtained. FINDINGS: Lungs are clear. No consolidation, pneumothorax, or pleural effusion. Cardiac and mediastinal contours are normal. Pulmonary vasculature is unremarkable. Trachea is midline. Osseous structures are unremarkable. XR/XR chest 2V IMPRESSION: Normal chest radiographs. Electronically signed by: Boy Burns MD 04/09/2024 07:33 PM EDT
[2024-03-17 07:58] LABS: MANUAL DIFF FLAG NO
[2024-03-17 09:02] LABS: Basophils Absolute Auto 0.1 X10*3/uL (0.0-0.2); Basophils Percent Auto 1.4 % (0-2); Eosinophils Absolute Auto 0.2 X10*3/uL (0.0-0.4); Eosinophils Percent Auto 3.2 % (0-4); Hematocrit 43.9 % (42.0-52.0); Hemoglobin 16.3 g/dl (14.0-18.0); Imm Gran Abs Auto 0.01 X10*3/uL (0.00-0.03); Imm Gran Pct Auto 0.2 % (0.0-0.4); Lymphocytes Absolute Auto 1.9 X10*3/uL (1.2-4.9); Lymphocytes Percent Auto 37.8 % (20-40); Mean Corpuscular HGB Conc 37.1 g/dl (31.0-36.0); Mean Corpuscular Hemoglobin 32.5 pg (27.0-33.0); Mean Corpuscular Volume 87.5 fL (80.0-98.0); Mean Platelet Volume 8.5 fL (9.4-12.4); Monocytes Absolute Auto 0.4 X10*3/uL (0.1-1.2); Monocytes Percent Auto 7.8 % (2-11); Neutrophils Absolute Auto 2.5 x10*3/uL (2.0-8.3); Neutrophils Percent Auto 49.6 % (45-73); Platelet Count 254 X10*3/uL (160-400); Red Blood Count 5.02 X10*6/uL (4.60-5.80); Red Cell Distribution Width 13.5 % (11.0-16.0)
[2024-03-17 09:07] LABS: Influenza A PCR NEGATIVE (Negative); Influenza B PCR NEGATIVE (Negative); Resp Syncy Virus RNA Qual PCR NEGATIVE (Negative); SARS COV2 PCR INHOUSE NEGATIVE (Negative)
[2024-03-17 09:26] LABS: Alanine Aminotransferase 36 U/L (0-40); Albumin Level 4.8 g/dL (3.5-5.0); Alkaline Phosphatase 81 U/L (39-117); Anion Gap 14 (12-20); Aspartate Amino Transferase 23 U/L (5-37); Bilirubin Total 1.6 mg/dL (0.0-1.0); Blood Urea Nitrogen 18 mg/dL (9-16); Calcium 9.8 mg/dL (8.4-10.2); Carbon Dioxide 25 mmol/L (22-29); Chloride 106 mmol/L (96-108); Cholesterol 220 mg/dL (<200); Estimated Glomerular Filt Rate > 60; Glucose Fasting 89 mg/dL (60-99); HDL Cholesterol 42 mg/dL (>40); LDL Cholesterol Calculated 126 mg/dL (<100); Potassium 3.8 mmol/L (3.3-5.1); Sodium 141 mmol/L (135-145); Total Protein 7.2 g/dL (6.5-8.0); Triglycerides 261 mg/dL (<150)
[2024-03-17 09:43] LABS: Thyroid Stimulating Hormone 1.33 uIU/mL (0.32-4.0)
== END 2024-03-17 07:46 | disposition home or self-care (01) ==
LOC: HO.LAB 07:45
PROVIDERS: PCP Internal Medicine; Visit Provider Internal Medicine
DX: Z13.0 Encounter for screening for diseases of the blood and blood-forming organs and certain disorders involving the immune mechanism (principal); Z13.9 Encounter for screening, unspecified; Z13.29 Encounter for screening for other suspected endocrine disorder; Z13.220 Encounter for screening for lipoid disorders; R05.9 Cough, unspecified; M25.559 Pain in unspecified hip
CPT/HCPCS: 0241U; 71046; 73502; 80053; 80061; 84443; 85025; 87635

== ENCOUNTER 2024-05-15 08:40 | Outpatient (REF) | payer OTHER, SELFPAY | END 2024-05-15 08:41 | disposition home or self-care (01) | LOC: HO.BBR 08:40 | PROVIDERS: PCP Internal Medicine; Visit Provider Internal Medicine Medical Oncology | DX: Z13.89 Encounter for screening for other disorder (principal) ==

== ENCOUNTER 2024-06-18 17:40 | Outpatient (REF) | payer OTHER, SELFPAY ==
--- NOTE | ~2024-06-18 | MR_ITS ---
EXAMINATION: MR HIP WITHOUT CONTRAST, RIGHT CLINICAL INFORMATION: Pain. COMPARISON: None available. TECHNIQUE: MRI of the right hip was obtained using routine sequences on a high-field strength magnet. FINDINGS: BONE/JOINTS: Anatomic right hip alignment. Mild acetabular subchondral edema, mild cartilage heterogeneity suggesting minimal degenerative changes. No evidence of acute fracture, avascular necrosis or stress reaction. No suspicious bony lesion seen. Pubic rami are intact. Symphysis pubis is intact. LABRUM: T2 hyperintense signal extending into the base of the anterosuperior labrum consistent with a tear. MUSCLES/TENDONS: Minimal gluteus minimus and gluteus medius tendinosis. Mild T2 signal in the iliopsoas myotendinous region and tendon possible mild tendinosis/strain. Mild quadratus femoris muscle edema, probable strain. JOINT FLUID/BURSA: Small joint effusion. No significant greater trochanteric or iliopsoas bursitis INTRAPELVIS STRUCTURES: No groin lymphadenopathy. No free fluid in the pelvis. Urinary bladder is partially distended.. MR/MR hip RT wo con IMPRESSION: 1. Minimal right hip arthritis. No evidence of acute fracture, avascular necrosis or stress reaction. 2. Anterosuperior labral findings suspicious for a tear. 3. Minimal gluteus minimus and medius tendinosis. Mild iliopsoas strain/tendinosis. Mild quadriceps femoris muscle edema, probable strain. Electronically signed by: Mikael Arroyo MD 07/06/2024 10:40 AM [facility]
== END 2024-06-18 17:41 | disposition home or self-care (01) ==
LOC: HO.MRI 17:40
PROVIDERS: PCP Internal Medicine; Visit Provider Physician Assistant Medical
DX: M25.551 Pain in right hip (principal); M54.51 Vertebrogenic low back pain
CPT/HCPCS: 72148; 73721

== ENCOUNTER 2024-07-16 10:01 | Outpatient (REF) | payer OTHER, SELFPAY ==
--- OUTSIDE RECORDS SUMMARY | 2024-07-16 10:03 | XMS_ITS ---
Author Name [facility] [place] Organization [facility] [place] Address [address] [place] [address] Care Team Providers Care Billboard Poster Name Role Phone JESSICA MCCURDY Primary Care Provider Unavailabl e Selected Encounter This section includes the information on record at MD for the Encounter. Date/Time Encounter Type Encounter Description Reason Pro vider Source Jul 05, 2024 10:12 AM Outpatient Encounter ADMIN PAT ACTIVTIES (MASNONCT) IHE Encounter Template Text not used by MD Plan of Treatment: Future Appointments (+ 6 months) and Future Tests (+/- 45 days) The Plan of Treatment section includes future care activities for the patient from all [place] treatmentfacilities. This section includes future appointments and future orders which are active, pending or scheduled. Future Appointments This section includes appointments that were scheduled to occur 6 months from the date of the Encounter, up to a maximum of 20 appointments. The data comes from all [place] treatment facilities. Appointment Date/Time Appointment Type Appointme nt Facility Name Jul 17, 2024 12:30 PM [facility] Jul 23, 2024 02:30 PM [facility] [place] Active, Pending, and Scheduled Orders This section includes a listing of several types of active, pending, and scheduled orders, including clinic medications orders, diagnostic test orders, procedure orders and consult orders; where the start date of the order is 45 days before the date of the Encounter or 45 days after the date of theEncounter. The data comes from all [place] treatment facilities. Test Date/Time Test Type Test Details Facility Name May 24, 2024 02:09 PM Consult Order [facility] Cons Mud Analysis [employer] Captain[facility] May 24, 2024 02:09 PM Consult Order [facility]-MRI Cons Mud Analysis [employer] [facility] Lab Results: +/- 30 days of the encounter This section includes the Chemistry and Hematology Lab Results on record with MD for the patient. Radiology Reports and Pathology Reports are provided separately, in subsequent sections. Lab Results This section contains the Chemistry/Hematology Results that were resulted 30 days before or 30 daysafter the date of the Encounter. Date/Time Source Result Type Result - Unit Interpretation Reference Range Comment Jun 22, 2024 02:57 PM [facility] URINALYSIS Specimen Type: URINE Comment: If Glucose = >500 and Ketones are positive, please alert the Physician. Ordering Provider: JESSICA MCCURDY Report Released Date/Time: May 24, 2024 02:10 PM Reporting Lab: [address] [address] Performing Lab: [address] [address] UA COLOR Light-Yellow Yellow UA APPEARANCE Clear Clear UA GLUCOSE Normal mg/dL Negative UA KETONES NEGATIVE mg/dL Negative UA BLOOD NEGATIVE mg/dL Negative UA PROTEIN NEGATIVE mg/dL Negative UA NITRITE NEGATIVE mg/dL Negative UA BILIRUBIN NEGATIVE mg/dL Negative UA SPECIFIC GRAVITY 1.029 H 1.016-1.022 UA pH 5.5 5.0-9.0 UA UROBILINOGEN Normal mg/dL <2.0 UA LEUKOCYTE NEGATIVE Negative Jun 22, 2024 02:57 PM [facility] MICROALBUMIN CREATININE RATIO PANEL Spe cimen Type: URINE No comment entered. Ordering Provider: JESSICA MCCURDY Report Released Date/Time: May 24, 2024 02:10 PM Reporting Lab: [address] [address] Performing Lab: [address] [address] MICROALBUMIN/C REATININE RATIO 6.3 mg/g 0-29.9 MICROALBUMIN,Q UANTITATIVE 0.8 mg/dL RR UNAVAIL CREATININE URINE 127.87 mg/dL Jun 22, 2024 01:35 PM [facility] URIC ACID Specimen Type: SERUM No comment entered. Ordering Provider: JESSICA MCCURDY Report Released Date/Time: May 24, 2024 02:10 PM Reporting Lab: [address] [address] Performing Lab: [address] [address] URIC ACID 6.1 mg/dL 3.5-7.2 Jun 22, 2024 01:35 PM [facility] VITAMIN D (25-OH) Specimen Type: SERUM No comment entered. Ordering Provider: JESSICA MCCURDY Report Released Date/Time: May 24, 2024 02:10 PM Reporting Lab: [address] [address] Performing Lab: [address] [address] VITAMIN D (25-OH) 15 ng/mL L 20-50 Jun 22, 2024 01:35 PM [facility] CBC AND DIFF (AUTO) Specimen Type: BLOOD No comment entered. Ordering Provider: JESSICA MCCURDY Report Released Date/Time: May 24, 2024 02:10 PM Reporting Lab: [address] [address] Performing Lab: [address] [address] WBC 5.15 10*3/uL 4.50-11.00 RBC 5.35 10*6/uL 4.23-5.66 HGB 16.9 g/dL 12.8-17 HCT 46.3 39.2-50.4 MCV 86.5 fL 82-99 MCHC 36.5 g/dL H 30.8-35.1 PLT 261 10*3/uL 140-360 RDW-CV 12.0 12.0-16.0 MONO, ABS 0.33 10*3/uL 0.30-1.10 MCH 31.6 pg 26.2-32.6 NEUT % 62.5 43.7-75.8 LYMPH % 27.0 14.0-42.3 MONO % 6.4 5.1-13.7 EOS % 2.5 0.4-6.8 BASO % 1.2 0.1-2.0 NEUT, ABS 3.22 10*3/uL 2.20-7.60 LYMPH, ABS 1.39 10*3/uL 1.00-3.20 EOS, ABS 0.13 10*3/uL 0.03-0.44 BASO, ABS 0.06 10*3/uL 0.01-0.13 IMMATURE GRAN % 0.4 0.0-0.7 IMMATURE GRAN, ABS 0.02 10*3/uL 0.00-0.06 NRBC % 0.0 0.0-0.0 NRBC, ABS 0.00 10*3/uL 0.00-0.00 Jun 22, 2024 01:35 PM [facility] FERRITIN Specimen Type: SERUM No comment entered. Ordering Provider: JESSICA MCCURDY Report Released Date/Time: May 24, 2024 02:10 PM Reporting Lab: [address] [address] Performing Lab: [address] [address] FERRITIN 304 ng/mL H 20-300 Jun 22, 2024 01:35 PM [facility] TSH Specimen Type: SERUM No comment entered. Ordering Provider: JESSICA MCCURDY Report Released Date/Time: May 24, 2024 02:10 PM Reporting Lab: [address] [address] Performing Lab: [address] [address] TSH 1.30 u[IU]/mL 0.35-5.00 Jun 22, 2024 01:35 PM [facility] HEMOGLOBIN A1C PANEL Specimen Type: BLOOD Comment: Values obtained from A1C measurements can vary. For atypical A1C assays, a reported value of 7.0 could actually be between 6.72 and 7.28 if measured by a reference method. A reported value of 9.0 could actually be between 8.73 and 9.27. Ref: http://www.ngs p.org/CAPdata. asp Ordering Provider: JESSICA MCCURDY Report Released Date/Time: May 24, 2024 02:10 PM Reporting Lab: [address] [address] Performing [facility]: [facility] [address] [address] HEMOGLOBIN A1C 4.4 4.0-5.6 Jun 22, 2024 01:35 PM [facility] PSA Specimen Type: SERUM No comment entered. Ordering Provider: JESSICA MCCURDY Report Released Date/Time: May 24, 2024 02:10 PM Reporting Lab: [facility] [address] [address] Performing Lab: [facility] [address] [address] PSA 0.34 ng/mL 0.00-4.00 Jun 22, 2024 01:35 PM [facility] BASIC METABOLIC PANEL (fasting) Specime n Type: SERUM No comment entered. Ordering Provider: JESSICA MCCURDY Report Released Date/Time: May 24, 2024 02:10 PM Reporting Lab: [address] [address] Performing Lab: [facility] [address] [address] UREA NITROGEN 18 mg/dL 7-25 GLUCOSE 95 mg/dL 65-100 SODIUM 141 mmol/L 135-145 POTASSIUM 4.1 mmol/L 3.5-5.0 CHLORIDE 105 mmol/L 100-110 CO2 24 meq/L 20-30 CREATININE, Serum 0.77 mg/dL 0.50-1.40 eGFR(CKD-EPI 2020) >90 mL/min >60 Jun 22, 2024 01:35 PM [facility] LIVER FUNCTION Specimen Type: SERUM No comment entered. Ordering Provider: JESSICA MCCURDY Report Released Date/Time: May 24, 2024 02:10 PM Reporting Lab: [address] [address] Performing Lab: [address] [address] PROTEIN,TOTAL 7.8 g/dL 6.0-8.3 ALBUMIN 4.7 g/dL 3.5-5.0 ALKALINE PHOSPHATASE 81 U/L 40-150 AST 23 U/L 5-34 ALT 45 U/L BILIRUBIN, TOTAL 1.0 mg/dL 0.2-1.2 Jun 22, 2024 01:35 PM [facility] LIPID PANEL FASTING Specimen Type: SERUM No comment entered. Ordering Provider: JESSICA MCCURDY Report Released Date/Time: May 24, 2024 02:10 PM Reporting Lab: [address] [address] Performing Lab: [address] [address] CHOLESTEROL 264 mg/dL H TRIGLYCERIDE 353 mg/dL H 0-150 LDL calculated Reflex to dLD L mg/dL 0-129 CHOL/HDL 5.7 HDL CHOLESTEROL 46 mg/dL 40-60 LDL DIRECT 168 mg/dL H Jun 22, 2024 01:35 PM [facility] CALCIUM Specimen Type: SERUM No comment entered. Ordering Provider: JESSICA MCCURDY Report Released Date/Time: May 24, 2024 02:10 PM Reporting Lab: [address] [address] Performing Lab: [address] [address] CALCIUM 9.9 mg/dL 8.5-10.2 Radiology Reports: +/- 30 days of the encounter Radiology Reports For cases when an order for radiology services may have been completed prior to the date of the Encounter, the report list includes the Radiology Reports that were completed up to 30 days before dateof the Encounter. For cases when an order for radiology services may have been completed after the date of the Encounter, the report list also includes the Radiology Reports that were completed up to30 days after date of the Encounter. The data comes from all [place] treatment facilities. Date/Time Radiology Report Provider Source Jun 22, 2024 08:10 AM CHEST (2 VIEWS): BERRY LOPEZ [id number] -1975 M Ex Date: JUN 22, 2024@08:10 Req Phys: JESSICA MCCURDY Loc: CWM/SO/PACT 3 WH (Req'g Loc) Img Loc: [facility]/BUILDING 1 Service: [place] [address] (Case 188 COMPLETE) CHEST (2 VIEWS) (RAD Detailed) CPT:19227 Reason for Study: HTN Clinical History: baseline any megaly? Report Status: Verified Date Reported: JUN 22, 2024 Date Verified: JUN 22, 2024 Mortgage Broker E-Sig: Report: CHEST (2 VIEWS) HISTORY: Hypertension, baseline COMPARISON: None TECHNIQUE: Images were obtained at the local [place], and then submitted to the National Teleradiology Program for interpretation. 5 images. Frontal and lateral views of the chest FINDINGS: The cardiomediastinal silhouette appears within normal limits taking into account positioning and technique. No focal airspace consolidation or pleural effusion is seen. No pneumothorax is seen. Relatively shallow degree of inspiration is noted, likely in part related to the patient's body habitus. No acute osseous abnormality seen. Impression: No acute cardiopulmonary disease process identified. READING PHYSICIAN: Anselmo Franco M.D. -[id number] 06/22/2024 9:20 EST [facility] National Teleradiology Program [phone] (For Medical Practitioner Use Only) Attention Patients / Veterans: If you have questions or concerns about these test results, please contact your ordering provider or primary care team. Primary Diagnostic Code: NO ALERT REQUIRED Primary Interpreting Staff: RADIOLOGY,OUTSIDE SERVICE, Staff Physician / RADIOLOGY,OUTSIDE SERVICE [facility] Encounter Notes: All associated encounter notes This section contains the clinical notes associated to the Encounter. Date/Time Encounter Note(s) Provider Source Jul 05, 2024 10:51 AM ADDENDUM: LOCAL TITLE: Addendum STANDARD TITLE: ADDENDUM DATE OF NOTE: JUL 05, 2024@10:51:02 ENTRY DATE: JUL 05, 2024@10:51:03 AUTHOR: RAEANN GAN EXP COSIGNER: URGENCY: STATUS: COMPLETED msa please request MRI results and make follow up appt. to discuss with pcp. /holli/ RAEANN GAN LPN LICENSED PRACTICAL NURSE Signed: 07/05/2024 10:51 Receipt Acknowledged By: 07/05/2024 11:32 /holli/ LIGIA VILLA Advanced Movie Editor === --- Original Document --- 07/05/24 CCC: SCHEDULING ADMINISTRATION: Patient Demographics Patient Name: BERRY LOPEZ Patient Primary Phone: [phone] Patient Primary Address: [address] [place] [address] Patient : 1975 Patient Age: 49 Caller/Recipient Relation to Patient: Self Caller Name: BERRY LOPEZ Administrative Administrative Note Reason: Other Administrative Note Comments: called to r/s appt that was canceled with PCP and was assigned a new PCP. He would like to schedule this NIDIA as t/w does not have access. Please call back. He is also waiting on MRI results (back, hip) IMPORTANT: This note was created by [facility] staff. Please do not alert the staff member by adding them as a signer for future communications. Alerts are not monitored by this user. /holli/ OFELIA GOMES 1 [facility] A[facility] Signed: 07/05/2024 10:12 Receipt Acknowledged By: * AWAITING SIGNATURE * ELLA WIN 07/05/2024 10:52 /holli/ RAEANN GAN LPN LICENSED PRACTICAL NURSE * AWAITING SIGNATURE * LIGIA VILLA 07/05/2024 ADDENDUM STATUS: UNSIGNED You may not VIEW this UNSIGNED Addendum. RAEANN GAN MD [facility] [place] [facility] Jul 05, 2024 10:12 AM ADMINISTRATIVE NOTE: LOCAL TITLE: CCC: SCHEDULING ADMINISTRATION STANDARD TITLE: ADMINISTRATIVE NOTE DATE OF NOTE: JUL 05, 2024@10:12:38 ENTRY DATE: JUL 05, 2024@10:12:38 AUTHOR: OFELIA VUONG EXP COSIGNER: URGENCY: STATUS: COMPLETED CCC: SCHEDULING ADMINISTRATION Has ADDENDA Patient Demographics Patient Name: BERRY LOPEZ Patient Primary Phone: [phone] Patient Primary Address: [address] [place], [place] Patient : 1975 Patient Age: 49 Caller/Recipient Relation to Patient: Self Caller Name: BERRY LOPEZ Administrative Administrative Note Reason: Other Administrative Note Comments: [place] called to r/s appt that was canceled with PCP and was assigned a new PCP. He would like to schedule this NIDIA as t/w does not have access. Please call back. He is also waiting on MRI results (back, hip) IMPORTANT: This note was created by [facility] staff. Please do not alert the staff member by adding them as a signer for future communications. Alerts are not monitored by this user. /holli/ OFELIA GOMES 1 [facility] Signed: 07/05/2024 10:12 Receipt Acknowledged By: 07/05/2024 14:28 /holli/ KENNEDY RAYMOND, CAMILO REGISTERED NURSE for ELLA WIN 07/05/2024 10:52 /holli/ RAEANN GAN LPN LICENSED PRACTICAL NURSE 07/05/2024 11:33 /holli/ LIGIA VILLA Advanced Movie Editor 07/05/2024 ADDENDUM STATUS: COMPLETED msa please request MRI results and make follow up appt. to discuss with pcp. /ernesto GAN LPN LICENSED PRACTICAL NURSE Signed: 07/05/2024 10:51 Receipt Acknowledged By: 07/05/2024 11:32 /holli/ LIGIA VILLA Advanced Movie Editor 07/05/2024 ADDENDUM STATUS: COMPLETED MRI report requested from [facility] MRI Appt scheduled for 07/17/24 /holli/ LIGIA VILLA Advanced Movie Editor Signed: 07/05/2024 11:33 OFELIA VUONG [facility]
--- OUTSIDE RECORDS SUMMARY | 2024-07-16 10:03 | XMS_ITS | Encounter Summary ---
Author Name [facility] [facility] [place] Address [address] [place] [address] Care Team Providers Care Stage Electrician Helper Name Role Phone JESSICA MCCURDY Primary Care Provider Unavailabl e Selected Encounter This section includes the information on record at [place] for the Encounter. Date/Time Encounter Type Encounter Description Reason Pro vider Source May 24, 2024 12:00 AM Outpatient Encounter EVENT (HISTORICAL) IHE Encounter Template Text not used by [place] Plan of Treatment: Future Appointments (+ 6 months) and Future Tests (+/- 45 days) The Plan of Treatment section includes future care activities for the patient from all [place] treatmentfacilities. This section includes future appointments and future orders which are active, pending or scheduled. Future Appointments This section includes appointments that were scheduled to occur 6 months from the date of the Encounter, up to a maximum of 20 appointments. The data comes from all [place] treatment facilities. Appointment Date/Time Appointment Type Appointme nt Facility Name Jun 18, 2024 06:00 PM AMBULATORY - MEDICINE [place] [facility] [place] [facility] Jun 18, 2024 06:30 PM AMBULATORY - MEDICINE IN [facility] [place] [facility] Jun 22, 2024 01:30 PM [facility] - [facility]IC[facility] Jun 22, 2024 02:00 PM [facility] - [facility] [place] [place] Jul 17, 2024 12:30 PM AMBULATORY - [...] of theEncounter. The data comes from all [place] treatment facilities. Test Date/Time Test Type Test Details Facility Name May 24, 2024 02:09 PM Consult Order [facility]-MRI Cons Drug Enforcement Administration Agent's [facility] May 24, 2024 02:09 PM Consult Order [facility]-MRI Cons Drug Enforcement Administration Agent's [facility] Lab Results: +/- 30 days of the encounter This section includes the Chemistry and Hematology Lab Results on record with [place] for the patient. Radiology Reports and Pathology Reports are provided separately, in subsequent sections. Lab Results This section contains the Chemistry/Hematology Results that were resulted 30 days before or 30 daysafter the date of the Encounter. Date/Time Source Result Type Result - Unit Interpretation Reference Range Comment Jun 22, 2024 02:57 PM [facility] URINALYSIS Specimen Type: URINE Comment: If Glucose = >500 and Ketones are positive, please alert the Physician. Ordering Provider: JESSICA MCCURDY Report Released Date/Time: May 24, 2024 02:10 PM Reporting Lab: [address] [address] Performing Lab: [address] [address] UA COLOR Light-Yellow Yellow UA APPEARANCE Clear Clear UA GLUCOSE Normal mg/dL Negative UA KETONES NEGATIVE mg/dL Negative UA BLOOD NEGATIVE mg/dL Negative UA PROTEIN NEGATIVE mg/dL Negative UA NITRITE NEGATIVE mg/dL Negative UA BILIRUBIN NEGATIVE mg/dL Negative UA SPECIFIC GRAVITY 1.029 H 1.016-1.022 UA pH 5.5 5.0-9.0 UA UROBILINOGEN Normal mg/dL <2.0 UA LEUKOCYTE NEGATIVE Negative Jun 22, 2024 02:57 PM [facility] MICROALBUMIN CREATININE RATIO PANEL Spe cimen Type: URINE No comment entered. Ordering Provider: JESSICA MCCURDY Report Released Date/Time: May 24, 2024 02:10 PM Reporting Lab: [address] [address] Performing Lab: [facility] [address] [address] MICROALBUMIN/C REATININE RATIO 6.3 mg/g 0-29.9 MICROALBUMIN,Q UANTITATIVE 0.8 mg/dL RR UNAVAIL CREATININE URINE 127.87 mg/dL Jun 22, 2024 01:35 PM [facility] URIC ACID Specimen Type: SERUM No comment entered. Ordering Provider: JESSICA MCCURDY Report Released Date/Time: May 24, 2024 02:10 PM Reporting Lab: [address] [address] Performing Lab: [address] [address] URIC ACID 6.1 mg/dL 3.5-7.2 Jun 22, 2024 01:35 PM [facility] VITAMIN D (25-OH) Specimen Type: SERUM No comment entered. Ordering Provider: JESSICA MCCURDY Report Released Date/Time: May 24, 2024 02:10 PM Reporting Lab: [address] [address] Performing Lab: [address] [address] VITAMIN D (25-OH) 15 ng/mL L 20-50 Jun 22, 2024 01:35 PM [facility] CBC AND DIFF (AUTO) Specimen Type: BLOOD No comment entered. Ordering Provider: JESSICA MCCURDY Report Released Date/Time: May 24, 2024 02:10 PM Reporting Lab: [address] [address] Performing Lab: [address] [address] WBC 5.15 10*3/uL 4.50-11.00 RBC 5.35 10*6/uL [...] 10*3/uL 0.00-0.00 Jun 22, 2024 01:35 PM [facility] FERRITIN Specimen Type: SERUM No comment entered. Ordering Provider: JESSICA MCCURDY Report Released Date/Time: May 24, 2024 02:10 PM Reporting Lab: [address] [address] Performing Lab: [address] [address] FERRITIN 304 ng/mL H 20-300 Jun 22, 2024 01:35 PM [facility] TSH Specimen Type: SERUM No comment entered. Ordering Provider: JESSICA MCCURDY Report Released Date/Time: May 24, 2024 02:10 PM Reporting Lab: [address] [address] Performing Lab: [address] [address] TSH 1.30 u[IU]/mL 0.35-5.00 Jun 22, 2024 01:35 PM [facility] HEMOGLOBIN A1C PANEL Specimen Type: BLOOD Comment: [...] May 24, 2024 02:10 PM Reporting [facility] [address] [address] Performing Lab: [address] [address] HEMOGLOBIN A1C 4.4 4.0-5.6 Jun 22, 2024 01:35 PM [facility] PSA Specimen Type: SERUM No comment entered. Ordering Provider: JESSICA MCCURDY Report Released Date/Time: May 24, 2024 02:10 PM Reporting [facility]: [facility] [address] [address] Performing Lab: [address] [address] PSA 0.34 ng/mL 0.00-4.00 Jun 22, 2024 01:35 PM [facility] BASIC METABOLIC PANEL (fasting) Specime n Type: SERUM No comment entered. Ordering Provider: JESSICA MCCURDY Report Released Date/Time: May 24, 2024 02:10 PM Reporting [facility] [address] [address] Performing Lab: [address] [address] UREA NITROGEN 18 mg/dL 7-25 GLUCOSE 95 mg/dL 65-100 SODIUM 141 mmol/L 135-145 POTASSIUM 4.1 mmol/L 3.5-5.0 CHLORIDE 105 mmol/L 100-110 CO2 24 meq/L 20-30 CREATININE, Serum 0.77 mg/dL 0.50-1.40 eGFR(CKD-EPI 2020) >90 mL/min >60 Jun 22, 2024 01:35 PM [facility] LIVER FUNCTION Specimen Type: SERUM No comment entered. Ordering Provider: JESSICA MCCURDY Report Released Date/Time: May 24, 2024 02:10 PM Reporting Lab: [facility] [address] [address] Performing Lab: [facility] [address] [address] PROTEIN,TOTAL 7.8 g/dL 6.0-8.3 ALBUMIN 4.7 g/dL 3.5-5.0 ALKALINE PHOSPHATASE 81 U/L 40-150 AST 23 U/L 5-34 ALT 45 U/L BILIRUBIN, TOTAL 1.0 mg/dL 0.2-1.2 Jun 22, 2024 01:35 PM [facility] LIPID PANEL FASTING Specimen Type: SERUM No comment entered. Ordering Provider: JESSICA MCCURDY Report Released Date/Time: May 24, 2024 02:10 PM Reporting Lab: [address] [address] Performing Lab: [address] [address] CHOLESTEROL 264 mg/dL H TRIGLYCERIDE 353 mg/dL H 0-150 LDL calculated Reflex to dLD L mg/dL 0-129 CHOL/HDL 5.7 HDL CHOLESTEROL 46 mg/dL 40-60 LDL DIRECT 168 mg/dL H Jun 22, 2024 01:35 PM [facility] CALCIUM Specimen Type: SERUM No comment entered. Ordering Provider: JESSICA MCCURDY Report Released Date/Time: May 24, 2024 02:10 PM Reporting Lab: [address] [address] Performing Lab: [address] [address] CALCIUM 9.9 mg/dL 8.5-10.2 Radiology Reports: +/- [...] the Encounter. The data comes from all [facility] facilities. Date/Time Radiology Report Provider Source Jun 22, 2024 08:10 AM CHEST (2 VIEWS): BERRY LOPEZ [id number] -1975 M Ex Date: JUN 22, 2024@08:10 Req Phys: JESSICA MCCURDY Loc: CWM/SO/PACT 3 WH (Req'g Loc) Img Loc: [facility]/BUILDING 1 Service: Unknown [place] [address] (Case 188 COMPLETE) CHEST (2 VIEWS) (RAD Detailed) CPT:66468 Reason for Study: HTN Clinical History: baseline any megaly? Report Status: Verified Date Reported: JUN 22, 2024 Date Verified: JUN 22, [address] E-Sig: Report: CHEST (2 VIEWS) HISTORY: Hypertension, baseline COMPARISON: None TECHNIQUE: Images were obtained at the local [place], and then submitted to the National Teleradiology [...] process identified. READING PHYSICIAN: Anselmo Franco M.D. -[id number] 06/22/2024 9:20 EST [facility] National Teleradiology Program [phone] (For Medical Practitioner Use Only) Attention Patients / Veterans: If you have questions or concerns about these test results, please contact your ordering provider or primary care team. Primary Diagnostic Code: NO ALERT REQUIRED Primary Interpreting Staff: RADIOLOGY,OUTSIDE SERVICE, Staff Physician / RADIOLOGY,OUTSIDE SERVICE [facility]
--- OUTSIDE RECORDS SUMMARY | 2024-07-16 10:03 | XMS_ITS | Continuity of Care Document ---
Author Name [facility] Organization [facility] Care Team Providers Care Ventilated Rib Fitter Name Role Phone [facility] Unavailable Unavailable Problems Combined list of problems from Department of Defense and Veterans Affairs facilities. It does not include entries that were removed or entered in error. Problem Status Onset Date Problem Type Date of Resolution Comments Source Hemochromatosis Active Condition May 24, 2024 Entered By: JESSICA MCCURDY Comment: Dx approx 2003; Does Phlebotomies Every Two Months as of MAY 17;May 24, 2024 Entered By: JESSICA MCCURDY Comment[facility] Entered By: JESSICA MCCURDY Comment: Is HereditaryOct 2023 Entered By: JESSICA MCCURDY Comment: Liver Bx approx 2003: Little Bit of CirrhosisOct 2023 Entered By: JESSICA MCCURDY Comment: Does Serial US's of ABD as Directed Outside [facility] Hypercholesterolemia Active Condition May 24, 2024 Entered By: JESSICA MCCURDY Comment: Not on Statin as of MAY 17 [place] Hypertension Active Condition May 24, 2024 Entered By: JESSICA MCCURDY Comment: Heretofore Undiagnosed and Untreated HTN as of MAY 17Oct 2023 Entered By: JESSICA MCCURDY Comment: KARL ContributoryOc t 2023 Entered By: JESSICA MCCURDY Comment: Request EKG and CXR in MAY 17 as Baselines for Eval of HTNDec 2023 Entered By: JESSICA MCCURDY Comment: CXR, JUN 17: No Acute Pulmo Processes or Megaly [place] Myofascial low back pain Active Condition May 24, 2024 Entered By: JESSICA MCCURDY Comment: Non-Radicular LBP; Plain Films [facility];O ct 2023 Entered By: JESSICA MCCURDY Comment: Request MRI of L-Spine in MAY 17 [place] Obstructive sleep apnea syndrome Active Condition May 24, 2024 Entered By: JESSICA MCCURDY Comment: Has CPAP [place] Pain in right hip joint Active Condition May 24, 2024 Entered By: JESSICA MCCURDY Comment: [facility] Neg for Degen ArthritisOct 2023 Entered By: JESSICA MCCURDY Comment: Soft Tissue is Likley Etio of RHip PainOct 2023 Entered By: JESSICA MCCURDY Comment: Request MRI of R Hip in MAY 17 [place] Rash Active Condition May 24 Entered By: JESSICA MCCURDY Comment: Lateral Aspect, Orbital Bone R Eye; Pre-Malig?? pending DERM Eval MAR25 [place] Screening for malignant neoplasm of colon done Active Condition May 24, 2024 Entered By: JESSICA MCCURDY Comment: Last Survil Colonoscopy 2022; +Polyposis; no CRCOct 2023 Entered By: JESSICA MCCURDY Comment: repeat 2023 Entered By: JESSICA MCCURDY Comment: Initial Diagnost Colonoscopy Done Due to Hematochezia [place] Diagnosis: ICD-10-CM Z13.6 Encounter for screening for cardiovascular disorders Active Diagnosis [facility] Diagnosis: ICD-10-CM I10 Essential (primary) hypertension Active Diagnosis [facility] Medications Combined list of outpatient medications from Department of Defense and Veterans Affairs facilities.Medications provided include 1) outpatient medications from the last 15 months, and 2) patient-reported medications. Medication Details Route Status Patient Instructions Prescription Expires Prescription Number Last Dispense Date Ordering Provider Order Date Order Qty Source LISINOPRIL 10MG TAB TAKE ONE TABLET BY MOUTH ONCE DAILY FOR HIGH BLOOD PRESSURE TO CONTROL BLOOD PRESSURE ORAL ACTIVE 05/25/2025 [id number] PK MCCURDY HN 2023 60 [place] Allergies, Adverse Reactions, Alerts Combined list of allergies from Department of Defense and Veterans Affairs facilities. It does not include entries that were removed or entered in error. Substance Category Reaction Severity Reaction type Status Date Reported Comments Source TRAMADOL Propensity to adverse reactions to drug (finding) Itching MODERATE active [address] [place] [facility] Immunizations Combined list of available immunizations from the Department of Defense and Veterans Affairs facilities. Immunization Series Date Given Administered By Site Reaction Lot Number CVX Code Drug Maxillofacial Prosthetics Dentist Status Comments Source TD(ADULT) UNSPECIFIED FORMULATION 2015 139 complet ed [place] [facility] Results Combined list of recent chemistry, hematology and other laboratory results from Department of Defense and Veterans Affairs, ranging from 15 months to all on record, depending upon the facility. Order Name Results Value Reference Range Date Interpretation Specimen Comments Source URINALYS IS COLOR OF URINE Light-Ye llow 06/22 Specimen Type: URINE Comment: If Glucose = >500 and Ketones are positive, please alert the Physician. Ordering Provider: JESSICA MCCURDY Report Released Date/Time: May 24, 2024 02:10 PM Reporting Lab: [facility] [address] [address] Performing Lab: [facility] [address] [place] URINALYS IS APPEARANCE OF URINE Clear 06/22 Specimen Type: URINE Comment: If Glucose = >500 and Ketones are positive, please alert the Physician. Ordering Provider: JESSICA MCCURDY Report Released Date/Time: May 24, 2024 02:10 PM Reporting Lab: [address] [address] Performing Lab: [address] [address] [place] URINALYS IS GLUCOSE [MASS/VOLU ME] IN URINE Normalmg /dL 06/22 Specimen Type: URINE Comment: If Glucose = >500 and Ketones are positive, please alert the Physician. Ordering Provider: JESSICA MCCURDY Report Released Date/Time: May 24, 2024 02:10 PM Reporting Lab: [address] [address] Performing Lab: [facility] [address] [place] URINALYS IS KETONES [MASS/VOLU ME] IN URINE BY TEST STRIP NEGATIVE mg/dL 06/22 Specimen Type: URINE Comment: If Glucose = >500 and Ketones are positive, please alert the Physician. Ordering Provider: JESSICA MCCURDY Report Released Date/Time: May 24, 2024 02:10 PM Reporting Lab: [address] [address] Performing Lab: [address] [address] [place] URINALYS IS ERYTHROCYT ES [PRESENCE] IN URINE SEDIMENT BY LIGHT MICROSCOPY NEGATIVE mg/dL 06/22 Specimen Type: URINE Comment: If Glucose = >500 and Ketones are positive, please alert the Physician. Ordering Provider: JESSICA MCCURDY Report Released Date/Time: May 24, 2024 02:10 PM Reporting Lab: [address] [address] Performing Lab: [address] [address] [place] URINALYS IS PROTEIN [MASS/VOLU ME] IN URINE BY TEST STRIP NEGATIVE mg/dL 06/22 Specimen Type: URINE Comment: If Glucose = >500 and Ketones are positive, please alert the Physician. Ordering Provider: JESSICA MCCURDY Report Released Date/Time: May 24, 2024 02:10 PM Reporting Lab: [address] [address] Performing Lab: [address] [address] [place] URINALYS IS NITRITE [PRESENCE] IN URINE NEGATIVE mg/dL 06/22 Specimen Type: URINE Comment: If Glucose = >500 and Ketones are positive, please alert the Physician. Ordering Provider: JESSICA MCCURDY Report Released Date/Time: May 24, 2024 02:10 PM Reporting Lab: [address] [address] Performing Lab: [address] [address] [place] URINALYS IS BILIRUBIN. TOTAL [PRESENCE] IN URINE NEGATIVE mg/dL 06/22 Specimen Type: URINE Comment: If Glucose = >500 and Ketones are positive, please alert the Physician. Ordering Provider: JESSICA MCCURDY Report Released Date/Time: May 24, 2024 02:10 PM Reporting Lab: [address] [address] Performing Lab: [address] [address] [place] URINALYS IS SPECIFIC GRAVITY OF URINE BY REFRACTOME TRY 1.029 1.016 - 1.022 06/22 H Specimen Type: URINE Comment: If Glucose = >500 and Ketones are positive, please alert the Physician. Ordering Provider: JESSICA MCCURDY Report Released Date/Time: May 24, 2024 02:10 PM Reporting Lab: [address] [address] Performing Lab: [place] [address] [place] URINALYS IS PH OF URINE BY TEST STRIP 5.5 5.0 - 9.0 06/22 Specimen Type: URINE Comment: If Glucose = >500 and Ketones are positive, please alert the Physician. Ordering Provider: JESSICA MCCURDY Report Released Date/Time: May 24, 2024 02:10 PM Reporting Lab: [address] [address] Performing Lab: [address] [address] [place] URINALYS IS UROBILINOG EN [MASS/VOLU ME] IN URINE BY TEST STRIP Normalmg /dL <2.0 - 2.0 06/22 Specimen Type: URINE Comment: If Glucose = >500 and Ketones are positive, please alert the Physician. Ordering Provider: JESSICA MCCURDY Report Released Date/Time: May 24, 2024 02:10 PM Reporting Lab: [address] [address] Performing Lab: [address] [address] [place] URINALYS IS LEUKOCYTE ESTERASE [PRESENCE] IN URINE BY TEST STRIP NEGATIVE 06/22 Specimen Type: URINE Comment: If Glucose = >500 and Ketones are positive, please alert the Physician. Ordering Provider: JESSICA MCCURDY Report Released Date/Time: May 24, 2024 02:10 PM Reporting Lab: [address] [address] Performing Lab: [facility] [address] [facility] [address] [place] MICROALB UMIN CREATINI NE RATIO PANEL MICROALBUM IN/CREATIN INE [MASS RATIO] IN URINE 6.3 mg/g 0 - 29.9 06/22 Specimen Type: URINE No comment entered. Ordering Provider: JESSICA MCCURDY Report Released Date/Time: May 24, 2024 02:10 PM Reporting Lab: [facility] [address] [facility] [address] Performing Lab: [address] [address] [place] MICROALB UMIN CREATINI NE RATIO PANEL MICROALBUM IN [MASS/VOLU ME] IN URINE 0.8 mg/dL 06/22 Specimen Type: URINE No comment entered. Ordering Provider: JESSICA MCCURDY Report Released Date/Time: May 24, 2024 02:10 PM Reporting Lab: [facility] [address] Performing Lab: [address] [address] [place] MICROALB UMIN CREATINI NE RATIO PANEL CREATININE [MASS/VOLU ME] IN URINE 127.87 mg/dL 06/22 Specimen Type: URINE No comment entered. Ordering Provider: JESSICA MCCURDY Report Released Date/Time: May 24, 2024 02:10 PM Reporting Lab: [address] [address] Performing Lab: [address] [address] [place] URIC ACID URATE [MASS/VOLU ME] IN SERUM OR PLASMA 6.1 mg/dL 3.5 - 7.2 06/22 Specimen Type: SERUM No comment entered. Ordering Provider: JESSICA CMCURDY Report Released Date/Time: May 24, 2024 02:10 PM Reporting Lab: [address] [address] Performing Lab: [address] [address] [place] VITAMIN D (25-OH) 25-HYDROXY VITAMIN D3 [MASS/VOLU ME] IN SERUM OR PLASMA 15 ng/mL 20 - 50 06/22 L Specimen Type: SERUM No comment entered. Ordering Provider: JESSICA MCCURDY Report Released Date/Time: May 24, 2024 02:10 PM Reporting Lab: [address] [address] Performing Lab: [address] [address] [place] CBC AND DIFF (AUTO) LEUKOCYTES [#/VOLUME] IN BLOOD BY AUTOMATED COUNT 5.15 10*3/uL 4.50 - 11.00 06/22 Specimen Type: BLOOD No comment entered. Ordering Provider: JESSICA MCCURDY Report Released Date/Time: May 24, 2024 02:10 PM Reporting Lab: [address] [address] Performing Lab: [address] [address] [place] CBC AND DIFF (AUTO) ERYTHROCYT ES [#/VOLUME] IN BLOOD BY AUTOMATED COUNT 5.35 10*6/uL 4.23 - 5.66 06/22 Specimen Type: BLOOD No comment entered. Ordering Provider: JESSICA MCCURDY Report Released Date/Time: May 24, 2024 02:10 PM Reporting Lab: [address] [address] Performing Lab: [address] [address] [place] CBC AND DIFF (AUTO) HEMOGLOBIN [MASS/VOLU ME] IN BLOOD 16.9 g/dL 12.8 - 17 06/22 Specimen Type: BLOOD No comment entered. Ordering Provider: JESSICA MCCURDY Report Released Date/Time: May 24, 2024 02:10 PM Reporting Lab: [address] [address] Performing Lab: [facility] [place] [facility] [address] [facility] [address] [place] CBC AND DIFF (AUTO) HEMATOCRIT [VOLUME FRACTION] OF BLOOD BY AUTOMATED COUNT 46.3 39.2 - 50.4 06/22 Specimen Type: BLOOD No comment entered. Ordering Provider: JESSICA MCCURDY Report Released Date/Time: May 24, 2024 02:10 PM Reporting Lab: [facility] [place] [facility] [address] [facility] [address] Performing Lab: [facility]ITALRL TRN [facility] [address] [facility] [address] [place] CBC AND DIFF (AUTO) MCV [ENTITIC VOLUME] BY AUTOMATED COUNT 86.5 fL 82 - 99 06/22 Specimen Type: BLOOD No comment entered. Ordering Provider: JESSICA MCCURDY Report Released Date/Time: May 24, 2024 02:10 PM Reporting Lab: [facility]ITALRVETERANS AFFAIRS MEDICAL CENTER-TUSCALOOSATRN [facility]USETS [facility] [address] [facility] [address] Performing Lab: [facility]ITALRL TRN [facility] [address] [facility] [address] [place] CBC AND DIFF (AUTO) MCHC [MASS/VOLU ME] BY AUTOMATED COUNT 36.5 g/dL 30.8 - 35.1 06/22 H Specimen Type: BLOOD No comment entered. Ordering Provider: JESSICA MCCURDY Report Released Date/Time: May 24, 2024 02:10 PM Reporting Lab: [facility]ITALRVETERANS AFFAIRS MEDICAL CENTER-TUSCALOOSATRN [facility]ETS [facility] [address] [facility] [address] Performing Lab: [facility]ITALRL TRN [facility]ETS [facility] [address] [facility] [address] [place] CBC AND DIFF (AUTO) PLATELETS [#/VOLUME] IN BLOOD BY AUTOMATED COUNT 261 10*3/uL 140 - 360 06/22 Specimen Type: BLOOD No comment entered. Ordering Provider: JESSICA MCCURDY Report Released Date/Time: May 24, 2024 02:10 PM Reporting Lab: [facility]ITALRVETERANS AFFAIRS [facility] C[facility]-TUSCALOOSATRN [address] [address] Performing Lab: [facility]OS[facility]ITALRL TRN [facility] [address] [place] CBC AND DIFF (AUTO) ERYTHROCYT E DISTRIBUTI ON WIDTH [RATIO] BY AUTOMATED COUNT 12.0 12.0 - 16.0 06/22 Specimen Type: BLOOD No comment entered. Ordering Provider: JESSICA MCCURDY Report Released Date/Time: May 24, 2024 02:10 PM Reporting Lab: [facility] [address] [address] Performing Lab: [facility] [address] [address] [place] CBC AND DIFF (AUTO) MONOCYTES [#/VOLUME] IN BLOOD BY AUTOMATED COUNT 0.33 10*3/uL 0.30 - 1.10 06/22 Specimen Type: BLOOD No comment entered. Ordering Provider: JESSICA MCCURDY Report Released Date/Time: May 24, 2024 02:10 PM Reporting Lab: [facility] [address] [address] Performing Lab: [facility] [address] [address] [place] CBC AND DIFF (AUTO) MCH [ENTITIC MASS] BY AUTOMATED COUNT 31.6 pg 26.2 - 32.6 06/22 Specimen Type: BLOOD No comment entered. Ordering Provider: JESSICA MCCURDY Report Released Date/Time: May 24, 2024 02:10 PM Reporting Lab: [facility] [address] [address] Performing Lab: [facility]N [address] [address] [place] CBC AND DIFF (AUTO) NEUTROPHIL S/100 LEUKOCYTES IN BLOOD BY AUTOMATED COUNT 62.5 43.7 - 75.8 06/22 Specimen Type: BLOOD No comment entered. Ordering Provider: JESSICA MCCURDY Report Released Date/Time: May 24, 2024 02:10 PM Reporting Lab: [facility] [address] [address] Performing Lab: [facility] [address] [address] [place] CBC AND DIFF (AUTO) LYMPHOCYTE S/100 LEUKOCYTES IN BLOOD BY AUTOMATED COUNT 27.0 14.0 - 42.3 06/22 Specimen Type: BLOOD No comment entered. Ordering Provider: JESSICA MCCURDY Report Released Date/Time: May 24, 2024 02:10 PM Reporting Lab: [place] [facility] [facility] [address] [facility] [address] Performing Lab: [place] [facility] [facility]CHUSETS [address] [address] [place] CBC AND DIFF (AUTO) MONOCYTES/ 100 LEUKOCYTES IN BLOOD BY AUTOMATED COUNT 6.4 5.1 - 13.7 06/22 Specimen Type: BLOOD No comment entered. Ordering Provider: JESSICA MCCURDY Report Released Date/Time: May 24, 2024 02:10 PM Reporting Lab: [place] [facility] [address] Performing Lab: [place] [facility]AREUSETS [address] [address] [place] CBC AND DIFF (AUTO) EOSINOPHIL S/100 LEUKOCYTES IN BLOOD BY AUTOMATED COUNT 2.5 0.4 - 6.8 06/22 Specimen Type: BLOOD No comment entered. Ordering Provider: JESSICA MCCURDY Report Released Date/Time: May 24, 2024 02:10 PM Reporting Lab: [place] [facility] [facility]ETS [address] [address] Performing Lab: [place] [facility] [address] [address] [place] CBC AND DIFF (AUTO) BASOPHILS/ 100 LEUKOCYTES IN BLOOD BY AUTOMATED COUNT 1.2 0.1 - 2.0 06/22 Specimen Type: BLOOD No comment entered. Ordering Provider: JESSICA MCCURDY Report Released Date/Time: May 24, 2024 02:10 PM Reporting Lab: [place] [facility] [facility] [facility]ETS [address] [address] Performing Lab: [place] [facility] [address] [address] [place] CBC AND DIFF (AUTO) NEUTROPHIL S [#/VOLUME] IN BLOOD BY AUTOMATED COUNT 3.22 10*3/uL 2.20 - 7.60 06/22 Specimen Type: BLOOD No comment entered. Ordering Provider: JESSICA MCCURDY Report Released Date/Time: May 24, 2024 02:10 PM Reporting Lab: [facility]N [address] [address] Performing Lab: [address] [address] [place] CBC AND DIFF (AUTO) LYMPHOCYTE S [#/VOLUME] IN BLOOD BY AUTOMATED COUNT 1.39 10*3/uL 1.00 - 3.20 06/22 Specimen Type: BLOOD No comment entered. Ordering Provider: JESSICA MCCURDY Report Released Date/Time: May 24, 2024 02:10 PM Reporting Lab: [address] [address] Performing Lab: [address] [address] [place] CBC AND DIFF (AUTO) EOSINOPHIL S [#/VOLUME] IN BLOOD BY AUTOMATED COUNT 0.13 10*3/uL 0.03 - 0.44 06/22 Specimen Type: BLOOD No comment entered. Ordering Provider: JESSICA MCCURDY Report Released Date/Time: May 24, 2024 02:10 PM Reporting Lab: [address] [address] Performing Lab: [address] [address] [place] CBC AND DIFF (AUTO) BASOPHILS [#/VOLUME] IN BLOOD BY AUTOMATED COUNT 0.06 10*3/uL 0.01 - 0.13 06/22 Specimen Type: BLOOD No comment entered. Ordering Provider: JESSICA MCCURDY Report Released Date/Time: May 24, 2024 02:10 PM Reporting Lab: [facility] [address] [address] Performing Lab: [address] [address] [place] CBC AND DIFF (AUTO) IMMATURE GRANULOCYT ES/100 LEUKOCYTES IN BLOOD BY AUTOMATED COUNT 0.4 0.0 - 0.7 06/22 Specimen Type: BLOOD No comment entered. Ordering Provider: JESSICA MCCURDY Report Released Date/Time: May 24, 2024 02:10 PM Reporting Lab: [facility] [address] [address] Performing Lab: [address] [address] [place] CBC AND DIFF (AUTO) IMMATURE GRANULOCYT ES [#/VOLUME] IN BLOOD 0.02 10*3/uL 0.00 - 0.06 06/22 Specimen Type: BLOOD No comment entered. Ordering Provider: JESSICA MCCURDY Report Released Date/Time: May 24, 2024 02:10 PM Reporting Lab: [address] [address] Performing Lab: [address] [address] [place] CBC AND DIFF (AUTO) NRBC % 0.0 0.0 - 0.0 06/22 Specimen Type: BLOOD No comment entered. Ordering Provider: JESSICA MCCURDY Report Released Date/Time: May 24, 2024 02:10 PM Reporting Lab: [address] [address] Performing Lab: [address] [address] [place] CBC AND DIFF (AUTO) NRBC, ABS 0.00 10*3/uL 0.00 - 0.00 06/22 Specimen Type: BLOOD No comment entered. Ordering Provider: JESSICA MCCURDY Report Released Date/Time: May 24, 2024 02:10 PM Reporting Lab: [address] [address] Performing Lab: [address] [address] [place] FERRITIN FERRITIN [MASS/VOLU ME] IN SERUM OR PLASMA 304 ng/mL 20 - 300 06/22 H Specimen Type: SERUM No comment entered. Ordering Provider: JESSICA MCCURDY Report Released Date/Time: May 24, 2024 02:10 PM Reporting Lab: [address] [address] Performing Lab: [address] [address] [place] TSH THYROTROPI N [UNITS/VOL UME] IN SERUM OR PLASMA 1.30 u[IU]/mL 0.35 - 5.00 06/22 Specimen Type: SERUM No comment entered. Ordering Provider: JESSICA MCCURDY Report Released Date/Time: May 24, 2024 02:10 PM Reporting Lab: [address] [address] Performing Lab: [address] [address] [place] HEMOGLOB IN A1C PANEL HEMOGLOBIN A1C/HEMOGL OBIN.TOTAL IN BLOOD BY HPLC 4.4 4.0 - 5.6 06/22 Specimen Type: BLOOD Comment: Values obtained from A1C measurement s can vary. For atypical A1C assays, a reported value of 7.0 could actually be between 6.72 and 7.28 if measured by a reference method. A reported value of 9.0 could actually be between 8.73 and 9.27. Ref: http://www. ngsp.org/[place] Pdata.asp Ordering Provider: JESSICA MCCURDY Report Released Date/Time: May 24, 2024 02:10 PM Reporting Lab: [address] [address] Performing Lab: [address] [address] [place] PSA PROSTATE SPECIFIC AG [MASS/VOLU ME] IN SERUM OR PLASMA 0.34 ng/mL 0.00 - 4.00 06/22 Specimen Type: SERUM No comment entered. Ordering Provider: JESSICA MCCURDY Report Released Date/Time: May 24, 2024 02:10 PM Reporting Lab: [address] [address] Performing Lab: [facility]N [facility] [address] [facility] [address] [place] BASIC METABOLI C PANEL (fasting ) UREA NITROGEN [MASS/VOLU ME] IN SERUM OR PLASMA 18 mg/dL 7 - 25 06/22 Specimen Type: SERUM No comment entered. Ordering Provider: JESSICA MCCURDY Report Released Date/Time: May 24, 2024 02:10 PM Reporting Lab: [facility]N [facility] [address] [facility] [address] Performing Lab: [facility]N [facility] [address] [facility] [address] [place] BASIC METABOLI C PANEL (fasting ) GLUCOSE [MASS/VOLU ME] IN SERUM OR PLASMA 95 mg/dL 65 - 100 06/22 Specimen Type: SERUM No comment entered. Ordering Provider: JESSICA MCCURDY Report Released Date/Time: May 24, 2024 02:10 PM Reporting Lab: [facility]N [facility] [address] [facility] [address] Performing Lab: [facility]N [facility] [address] [facility] [address] [place] BASIC METABOLI C PANEL (fasting ) SODIUM [MOLES/VOL UME] IN SERUM OR PLASMA 141 mmol/L 135 - 145 06/22 Specimen Type: SERUM No comment entered. Ordering Provider: JESSICA MCCURDY Report Released Date/Time: May 24, 2024 02:10 PM Reporting Lab: [facility]N [facility] [address] [facility] [address] Performing Lab: [facility]N [facility] [address] [facility] [address] [place] BASIC METABOLI C PANEL (fasting ) POTASSIUM [MOLES/VOL UME] IN SERUM OR PLASMA 4.1 mmol/L 3.5 - 5.0 06/22 Specimen Type: SERUM No comment entered. Ordering Provider: JESSICA MCCURDY Report Released Date/Time: May 24, 2024 02:10 PM Reporting Lab: [facility]N [facility] [address] [facility] [address] Performing Lab: [place] [address] [address] [place] BAS[place] METABOLI C PANEL (fasting ) CHLORIDE [MOLES/VOL UME] IN SERUM OR PLASMA 105 mmol/L 100 - 110 06/22 Specimen Type: SERUM No comment entered. Ordering Provider: JESSICA MCCURDY Report Released Date/Time: May 24, 2024 02:10 PM Reporting Lab: [address] [address] Performing Lab: [address] [address] [place] BASIC METABOLI C PANEL (fasting ) CARBON DIOXIDE, TOTAL [MOLES/VOL UME] IN SERUM OR PLASMA 24 meq/L 20 - 30 06/22 Specimen Type: SERUM No comment entered. Ordering Provider: JESSICA MCCURDY Report Released Date/Time: May 24, 2024 02:10 PM Reporting Lab: [address] [address] Performing Lab: [address] [address] [employer] BASIC METABOLI C PANEL (fasting ) CREATININE [MASS/VOLU ME] IN SERUM OR PLASMA 0.77 mg/dL 0.50 - 1.40 06/22 Specimen Type: SERUM No comment entered. Ordering Provider: JESSICA MCCURDY Report Released Date/Time: May 24, 2024 02:10 PM Reporting Lab: [address] [address] Performing Lab: [address] [address] [employer] LD BASIC METABOLI C PANEL (fasting ) GLOMERULAR FILTRATION RATE/1.73 SQ M.PREDICTE D [VOLUME RATE/AREA] IN SERUM, PLASMA OR BLOOD BY CREATININE -BASED FORMULA (CKD-EPI 2020) >90mL/mi n 60 06/22 Specimen Type: SERUM No comment entered. Ordering Provider: JESSICA MCCURDY Report Released Date/Time: May 24, 2024 02:10 PM Reporting Lab: [address] [address] Performing Lab: [place] [facility] [address] [facility] [address] ELLIS Vital Signs Combined list of inpatient and outpatient Vital Signs from Department of Defense and Veterans Affairs, ranging from 12 months to all on record, depending upon the facility. Vital Sign Value Date Comments Source SYSTOLIC BLOOD PRESSURE 122 06/22/2024 14:15:00 [place] DIASTOLIC BLOOD PRESSURE 86 06/22/2024 14:15:00 [place] PULSE OXIMETRY 96 06/22/2024 14:15:00 [place] WEIGHT 205 06/22/2024 14:15:00 [place] BMI 32kg/m2 06/22/2024 14:15:00 [place] HEIGHT 67 06/22/2024 14:15:00 [place] PULSE 88 06/22/2024 [facility] SYSTOLIC BLO[facility] PRESSURE 168 05/24/2024 13:35:51 [place] DIASTOLIC BLOOD PRESSURE 114 05/24/2024 13:35:51 [place] PULSE OXIMETRY 96 05/24/2024 13:35:51 [place] WEIGHT 207 05/24/2024 13:35:51 [place] BMI 32kg/m2 05/24/2024 13:35:51 [place] HEIGHT 67 05/24/2024 13:35:51 [place] TEMPERATURE 97.4 05/24/2024 13:35:51 [place] PULSE 78 05/24/2024 13:35:51 [place] RESPIRATION 18 05/24/2024 13:35:51 [place] Encounters Combined list of: 1) Encounters from Department of Veterans Affairs facilities going back up to thelast 18 months. 2) Encounters from the Department of Defense facilities going back up to 280 months. Location Location Details Encounter Type Encounter Number Reason For Visit Attending Provider ADM Date DC Date Status Disposition Source [facility] [place] [facility] Outpatient Encounter [id number] 1.04/24 [place] [facility] [facility] Outpatient Encounter [id number] 1.08/25 [place] [facility] [place] [facility] [place] [facility] Outpatient Encounter [id number] 1.05/15 [place] [facility] [facility] [facility] Outpatient Encounter [id number] 1.05/24 [place] [facility] [facility] EST MOD 30 MIN [id number] Diagnos is: ICD-10- CM I10 Essenti al (primar y) hyperte nsion<b r/> [facility]CC[facility] N [facility] [place] [facility] Outpatient Encounter [id number] 1.05/24 [place] [facility] LD OFF/OP EST NOVEMBER X REQ PHY/QHP [id number] Diagnos is: ICD-10- CM I10 Essenti al (primar y) hyperte nsion<b r/> LESLYE WIN Y N [facility] ELECTROCAR DIOGRAM REPORT [id number] Diagnos is: ICD-10- CM Z13.6 Encount er for screeni ng for cardiov ascular disorde rs
BLUE PRATHER PE A 06/[address] [facility] [facility] [place] [facility] Outpatient Encounter [id number] 07/05 [place] [facility] Social History Combined list of available smoking, tobacco, and other social history from Department of Defense and Veterans Affairs facilities. Social History Type Response Date Comment Sourc e Tobacco smoking status NHIS VA-TOBACCO NEVER USED 05/24/20 [place] Plan of Care List of future care activities from Department of Veterans Affairs facilities. Additional future care activities may be listed in the Assessment and Plan section. Date/Time Care Activity Care Activity Detail Facili 07/17/2024 AMBULATORY - MEDICINE AMBULATORY - MEDICI [place] 07/23/2024 AMBULATORY - MEDICINE AMBULATORY - MEDICI [facility]
--- OUTSIDE RECORDS SUMMARY | 2024-07-16 10:03 | XMS_ITS | Encounter Summary ---
Author Name [facility] [place] [facility] [place] Address [address] [place] [address] Care Team Providers Care Teacher Emotionally Impaired Name Role Phone JESSICA MCCURDY Primary Care Provider Unavailabl e Selected Encounter This section includes the information on record at [place] for the Encounter. Date/Time Encounter Type Encounter Description Reason Provider Source Jun 22, 2024 01:30 PM OFF/OP EST NOVEMBER X REQ PHY/QHP PRIMARY CARE/MEDICINE ICD-10-CM I10 Essential (primary) hypertension ELLA MARTINEZ Radha Encounter Template Text not used by [place] Assessments - Encounter Diagnoses This section includes the primary and secondary diagnoses documented for the Encounter. Date/Time Primary/Secondary Diagnosis Diagnosis Name Provider Source Jun 22, 2024 03:17 PM PRIMARY Essential (primary) hypertension ELLA MARTINEZ [place] Plan of Treatment: Future Appointments (+ 6 months) and Future Tests (+/- 45 days) The Plan of Treatment section includes future care activities for the patient from all [place] treatmentfacilities. This section includes future appointments and future orders which are active, pending or scheduled. Future Appointments This section includes appointments that were scheduled to occur 6 months from the date of the Encounter, up to a maximum of 20 appointments. The data comes from all [place] treatment facilities. Appointment Date/Time Appointment Type Appointme [...] of theEncounter. The data comes from all [place] treatment facilities. Test Date/Time Test Type Test Details Facility Name May 24, 2024 02:09 PM Consult Order [facility] May 24, 2024 02:09 PM Consult Order [facility] Safety Techn[facility] Lab Results: +/- 30 days of the encounter This section includes the Chemistry and Hematology Lab Results on record with [place] for the patient. Radiology Reports and Pathology Reports are provided separately, in subsequent sections. Lab Results This section contains the Chemistry/Hematology Results that were resulted 30 days before or 30 daysafter the date of the Encounter. Date/Time Source Result Type Result - Unit Interpretation Reference Range Comment Jun 22, 2024 02:57 PM [facility] URINALYSIS Specimen Type: URINE Comment: If Glucose = >500 and Ketones are positive, please alert the Physician. Ordering Provider: JESSICA MCCURDY Report Released Date/Time: May 24, 2024 02:10 PM Reporting Lab: [address] [address] Performing Lab: [address] [address] UA COLOR Light-Yellow Yellow UA APPEARANCE Clear Clear UA GLUCOSE Normal mg/dL Negative UA KETONES NEGATIVE mg/dL Negative UA BLOOD NEGATIVE mg/dL Negative UA PROTEIN NEGATIVE mg/dL Negative UA NITRITE NEGATIVE mg/dL Negative UA BILIRUBIN NEGATIVE mg/dL Negative UA SPECIFIC GRAVITY 1.029 H 1.016-1.022 UA pH 5.5 5.0-9.0 UA UROBILINOGEN Normal mg/dL <2.0 UA LEUKOCYTE NEGATIVE Negative Jun 22, 2024 02:57 PM [place] MICROALBUMIN CREATININE RATIO PANEL Spe cimen Type: URINE No comment entered. Ordering Provider: JESSICA MCCURDY Report Released Date/Time: May 24, 2024 02:10 PM Reporting Lab: [address] [address] Performing Lab: [address] [place] [address] MICROALBUMIN/C REATININE RATIO 6.3 mg/g 0-29.9 MICROALBUMIN,Q UANTITATIVE 0.8 mg/dL RR UNAVAIL CREATININE URINE 127.87 mg/dL Jun 22, 2024 01:35 PM [place] URIC ACID Specimen Type: SERUM No comment entered. Ordering Provider: JESSICA MCCURDY Report Released Date/Time: May 24, 2024 02:10 PM Reporting Lab: [address] [address] Performing Lab: [address] [address] URIC ACID 6.1 mg/dL 3.5-7.2 Jun 22, 2024 01:35 PM [place] VITAMIN D (25-OH) Specimen Type: SERUM No comment entered. Ordering Provider: JESSICA MCCURDY Report Released Date/Time: May 24, 2024 02:10 PM Reporting Lab: [address] [address] Performing Lab: [address] [address] VITAMIN D (25-OH) 15 ng/mL L 20-50 Jun 22, 2024 01:35 PM [place] CBC AND DIFF (AUTO) Specimen Type: BLOOD No comment entered. Ordering Provider: JESSICA MCCURDY Report Released Date/Time: May 24, 2024 02:10 PM Reporting Lab: [address] [address] Performing Lab: [address] [address] WBC 5.15 10*3/uL 4.50-11.00 RBC 5.35 10*6/uL [...] 10*3/uL 0.00-0.00 Jun 22, 2024 01:35 PM [place] FERRITIN Specimen Type: SERUM No comment entered. Ordering Provider: JESSICA MCCURDY Report Released Date/Time: May 24, 2024 02:10 PM Reporting Lab: [address] [address] Performing Lab: [address] [address] FERRITIN 304 ng/mL H 20-300 Jun 22, 2024 01:35 PM [place] TSH Specimen Type: SERUM No comment entered. Ordering Provider: JESSICA MCCURDY Report Released Date/Time: May 24, 2024 02:10 PM Reporting [facility]: [facility] [address] [address] Performing Lab: [address] [address] TSH 1.30 u[IU]/mL 0.35-5.00 Jun 22, 2024 01:35 PM [place] HEMOGLOBIN A1C PANEL Specimen Type: BLOOD Comment: [...] May 24, 2024 02:10 PM Reporting Lab: [facility] [address] [address] Performing Lab: [address] [address] HEMOGLOBIN A1C 4.4 4.0-5.6 Jun 22, 2024 01:35 PM [place] PSA Specimen Type: SERUM No comment entered. Ordering Provider: JESSICA MCCURDY Report Released Date/Time: May 24, 2024 02:10 PM Reporting Lab: [facility] [address] [address] Performing Lab: [address] [address] PSA 0.34 ng/mL 0.00-4.00 Jun 22, 2024 01:35 PM [place] BASIC METABOLIC PANEL (fasting) Specime n Type: SERUM No comment entered. Ordering Provider: JESSICA MCCURDY Report Released Date/Time: May 24, 2024 02:10 PM Reporting Lab: [address] [address] Performing Lab: [address] [address] UREA NITROGEN 18 mg/dL 7-25 GLUCOSE 95 mg/dL 65-100 SODIUM 141 mmol/L 135-145 POTASSIUM 4.1 mmol/L 3.5-5.0 CHLORIDE 105 mmol/L 100-110 CO2 24 meq/L 20-30 CREATININE, Serum 0.77 mg/dL 0.50-1.40 eGFR(CKD-EPI 2020) >90 mL/min >60 Jun 22, 2024 01:35 PM [place] LIVER FUNCTION Specimen Type: SERUM No comment entered. Ordering Provider: JESSICA MCCURDY Report Released Date/Time: May 24, 2024 02:10 PM Reporting Lab: [facility] [address] [address] Performing Lab: [address] [place] [address] PROTEIN,TOTAL 7.8 g/dL 6.0-8.3 ALBUMIN 4.7 g/dL 3.5-5.0 ALKALINE PHOSPHATASE 81 U/L 40-150 AST 23 U/L 5-34 ALT 45 U/L BILIRUBIN, TOTAL 1.0 mg/dL 0.2-1.2 Jun 22, 2024 01:35 PM [place] LIPID PANEL FASTING Specimen Type: SERUM No comment entered. Ordering Provider: JESSICA MCCURDY Report Released Date/Time: May 24, 2024 02:10 PM Reporting Lab: [address] [address] Performing Lab: [address] [address] CHOLESTEROL 264 mg/dL H TRIGLYCERIDE 353 mg/dL H 0-150 LDL calculated Reflex to dLD L mg/dL 0-129 CHOL/HDL 5.7 HDL CHOLESTEROL 46 mg/dL 40-60 LDL DIRECT 168 mg/dL H Jun 22, 2024 01:35 PM [place] CALCIUM Specimen Type: SERUM No comment entered. Ordering Provider: JESSICA MCCURDY Report Released Date/Time: May 24, 2024 02:10 PM Reporting Lab: [address] [address] Performing Lab: [address] [address] CALCIUM 9.9 mg/dL 8.5-10.2 Vital Signs: All taken on the encounter date This section contains inpatient and outpatient Vital Signs collected on the date of the Encounter. Date/Time Temperature Pulse Blood Pressure Respiratory Rate SP02 Pain Height Weight Body Mass Index Source Jun 22, 2024 02:15 PM 88 122/86 96 67 205 [address] [facility] [place] Social History: Smoking Status (Most current) and Tobacco Use (All prior to encounter date) This section includes the most current, and the historical, smoking and tobacco- related health factors from the [place] facility where the Encounter took place. Current Smoking Status This section includes the most current smoking, or tobacco-related health factor, from the [place] facility where the Encounter took place. Date/Time Current Smoking Status Comment Gabe price May 24, 2024 01:00 PM VA-TOBACCO NEVER USED [facility] Radiology Reports: +/- 30 days of the [...] the Encounter. The data comes from all [place] treatment facilities. Date/Time Radiology Report Provider Source Jun 22, 2024 08:10 AM CHEST (2 VIEWS): BERRY LOPEZ [id number] -[id number] M Exm Date: JUN 22, 2024@08:10 Req Phys: JESSICA MCCURDY Loc: CWM/SO/PACT 3 WH (Req'g Loc) Img Loc: [facility] 1 Service: [place] [address] (Case [id number] COMPLETE) CHEST (2 VIEWS) (RAD Detailed) CPT:09963 Reason for Study: HTN Clinical History: baseline any megaly? Report Status: Verified Date Reported: JUN 22, 2024 Date Verified: JUN 22, 2024 [employer] Worker E-Sig: Report: CHEST (2 VIEWS) HISTORY: Hypertension, baseline COMPARISON: None TECHNIQUE: Images were obtained at the local [place], and then submitted to the National T[employer] [...] process identified. READING PHYSICIAN: Anselmo Franco M.D. -[phone] 06/22/2024 9:20 EST [facility] National Teleradiology Program [phone] (For Medical Practitioner Use Only) Attention Patients / Veterans: If you have questions or concerns about these test results, please contact your ordering provider or primary care team. Primary Diagnostic Code: NO ALERT REQUIRED Primary Interpreting Staff: RADIOLOGY,OUTSIDE SERVICE, Staff Physician / RADIOLOGY,OUTSIDE SERVICE [facility] Encounter Notes: All associated encounter notes This section contains the clinical notes associated to the Encounter. Date/Time Encounter Note(s) Provider Source Jun 22, 2024 03:19 PM PREVENTIVE MEDICIN E NURSING NOTE: LOCAL TITLE: CLINICAL REMINDERS/NURSING STANDARD TITLE: PREVENTIVE MEDICINE NURSING NOTE DATE OF NOTE: JUN 22, 2024@15:19 ENTRY DATE: JUN 22, 2024@15:19:28 AUTHOR: ELLA MARTINEZ EXP COSIGNER: URGENCY: STATUS: COMPLETED Home Telehealth (CCHT) Referral: [facility] at [facility]. (Optional) Whole Health Documentation: Patient declines to address Whole Health at this time. COVID-19 Immunization: Refused Moderna Monovalent COVID-19 vaccine Immunization: COVID-19 (MODERNA), MRNA, LNP-S, PF, 50 MCG/0.5 ML (AGES 12+ YEARS) Refusal Reason: PATIENT DECISION Patient refuses all immunization(s) in the COVID-19 group Date Documented: 06/22/24 15:19 Influenza Immunization: Deferral / Refusal The patient declines to receive the recommended dose of seasonal influenza vaccine. Immunization: INFLUENZA, UNSPECIFIED FORMULATION Refusal Reason: PATIENT DECISION Patient refuses all immunization(s) in the FLU group Date Documented: 06/22/24 15:20 Tdap Immunization: Td/Tdap given previously - written records available The patient has previously received the Tetanus, Diphtheria vaccine (Td). Documented: TD(ADULT) UNSPECIFIED FORMULATION Historical Date Administered: Aug 01, 2015 Information Source: FROM PATIENT'S WRITTEN RECORD Lipid Screening: Lipid profile ordered at this encounter. /holli/ Ella Martinez RN Registered Nurse (RN) Signed: 06/22/2024 15:24 ELLA MARTINEZ [place] Jun 22, 2024 03:03 PM NURSING NOTE: LOCAL TITLE: PRIMARY CARE NURSE NOTE STANDARD TITLE: NURSING NOTE DATE OF NOTE: JUN 22, 2024@15:03 ENTRY DATE: JUN 22, 2024@15:03:51 AUTHOR: ELLA MARTINEZ EXP COSIGNER: URGENCY: STATUS: COMPLETED F: ===== BERRY LOPEZ is a 49 yo who presents to the clinic for a BP check per JESSICA MCCURDY for Dx: Hypertension D: ===== Pt. has a history of: Active problems - Computerized Problem List is the source for the followin. Screening for malignant neoplasm of colon done 2. Hypertension 3. Hypercholesterolemia 4. Hemochromatosis 5. Obstructive sleep apnea syndrome 6. Rash 7. Pain in right hip joint 8. Myofascial low back pain Active Outpatient Medications (including Supplies): Issue Date Status Last Fill Active Outpatient Medications Refills Expiration 1) LISINOPRIL 10MG TAB Qty: 60 for 60 days ACTIVE Issu:05-24-24 Sig: TAKE ONE TABLET BY MOUTH ONCE Refills: 1 Last:05-24-24 DAILY FOR HIGH BLOOD PRESSURE TO Expr:05-25-25 CONTROL BLOOD PRESSURE Allergies: TRAMADOL Patient Medication Management: Taking all of the above HTN MANAGEMENT Date Vital Measurement Qualifiers 06/22/2024 14:15 Pulse 88 BP 122/86 L Arm, Lying, Cuff- Automated, Lg Adult Cuff Ht in (cm) 67 (170.18) Wt lbs (kg)[BMI] 205 (92.99)[32*] POx (L/Min)(%) 96 At Rest Symptoms REPORTED: NONE Symptoms DENIED: CP , SOB , HAMPTON , DZ , or palpitations, visual changes Lower extremity swelling, Sudden weight gain, Diaphoresis Arm Pain, Jaw Pain Home BP Monitor Education Patient given home BP monitor and educated on the proper technique to obtain an accurate Blood Pressure 1.DONT SMOKE, EXERCISE, DRINK CAFFEINATED BEVERAGES OR ALCOHOL WITHIN 30 MINUTES OF MEASUREMENT. 2.REST IN A CHAIR FOR AT LEAST 5 MINUTES WITH YOUR LEFT ARM RESTING COMFORTABLY ON A FLAT SURFACE AT HEART LEVEL. SIT CALMLY AND DONT TALK. 3. MAKE SURE YOURE RELAXED. SIT STILL IN A CHAIR WITH YOUR FEET FLAT ON THE FLOOR WITH YOUR BACK STRAIGHT AND SUPPORTED. 4. PLACE THE BOTTOM OF THE CUFF ABOVE THE BEND OF THE ELBOW. 5. TAKE AT LEAST TWO READINGS 1 MIN. APART IN MORNING BEFORE TAKING MEDICATIONS, AND IN EVENING BEFORE DINNER. RECORD ALL RESULTS. Pt demonstrated proper procedure with a BP reading of: 112/88 Pt advised to test BP: Every day 2 hrs after taking BP Medication Education Discussed basic pathology of HTN & STROKE - gave appropriate handout which was reviewed with patient Educated re: diet, medication management, physical activity Methods: Verbal, Handout/Brochures A/P: ===== Entered consults for: BP monitor Advised to bring Log and or BP Monitor to all appointments [place] started on Blood Pressure medication on 05/24/24, states he is taking as prescribed, however he does admit to missing 3 doses since starting, medication is new to him, we did discuss ways of remembering, like setting an alarm on his cell phone. Discussed low salt diet and ways to cut back. R: RTC 4 weeks, sooner PRN Upcoming Appointments: 07/23/2024 13:00 CWM/SO/PACT 9 No barriers; Patient understands and agrees to current treatment plan. If pt. has any questions, concerns, or changes in current health status he/she will call or come [facility] the [facility] 60 minutes spent in patient care and education /es/ Ella Martinez RN Registered Nurse (RN) Signed: 06/22/2024 15:17 ELLA MARTINEZ [place] Jun 22, 2024 03:02 PM CARDIOLOGY DIAGNOS TIC STUDY CONSULT: LOCAL TITLE: CONSULT REPORT/EKG STANDARD TITLE: CARDIOLOGY DIAGNOSTIC STUDY CONSULT DATE OF NOTE: JUN 22, 2024@15:02 ENTRY DATE: JUN 22, 2024@15:02:37 AUTHOR: ELLA MARTINEZ EXP COSIGNER: URGENCY: STATUS: COMPLETED EKG tracing was performed for diagnosis of CHEST PAIN SOB ordered by JESSICA MCCURDY. Order Information To Service: EKG TRACING/SPOPC OUTPT From Service: CWM/SO/PACT 3 [facility] Requesting Provider: JESSICA MCCURDY Service is to be rendered on an OUTPATIENT basis Place: Health And Safety Technician's choice Urgency: Routine Clinically Ind. Date: Jun 23, 2024 DST ID: Orderable Item: EKG TRACING/SPOPC OUTPT Consult: Consult Request Provisional Diagnosis: Essential (Primary) Hypertension(ICD-10-CM I10.) Reason For Request: Reason for EKG: HTN, CHEST PAIN, SOB [place] Age:49 Height:67 in [170.2 cm] (05/24/2024 13:35) Weight:207 lb [93.89 kg] (05/24/2024 13:35) /holli/ Ella Martinez RN Registered Nurse (RN) Signed: 06/22/2024 15:03 ELLA MARTINEZ [facility]
--- OUTSIDE RECORDS SUMMARY | 2024-07-16 10:03 | XMS_ITS | Encounter Summary ---
Author Name [facility] [place] Organization [facility] [place] Address [address] [place] [address] Care Team Providers Care Lath Tier Name Role Phone JESSICA MCCURDY Primary Care Provider Unavailzoe kelly Selected Encounter This section includes the information on record at [place] for the Encounter. Date/Time Encounter Type Encounter Description Reason Provider Source Jun 22, 2024 02:18 PM ELECTROCARDIOGRAM REPORT EKG ICD-10-CM Z13.6 Encounter for screening for cardiovascular disorders ANID PRATHER [facility] Encounter Template Text not used by [place] Assessments - Encounter Diagnoses This section includes the primary and secondary diagnoses documented for the Encounter. Date/Time Primary/Secondary Diagnosis Diagnosis Name Provider Source Jun 25, 2024 09:22 AM PRIMARY Encounter for screening for cardiovascular disorders ALDO ARGUETA [facility] Plan of Treatment: Future Appointments (+ 6 months) and Future Tests (+/- 45 days) The Plan of Treatment section includes future care activities for the patient from all [place] treatmentfacilities. This section includes future appointments and future orders which are active, pending or scheduled. Future Appointments This section includes appointments that were scheduled to occur 6 months from the date of the Encounter, up to a maximum of 20 appointments. The data comes from all [place] treatment facilities. Appointment Date/Time Appointment Type Appointme [...] of theEncounter. The data comes from all [place] treatment facilities. Test Date/Time Test Type Test Details Facility Name May 24, 2024 02:09 PM Consult Order [facility] Cons Courtroom Deputy Or Calendar Clerk's [facility] May 24, 2024 02:09 PM Consult Order [facility] Cons Courtroom Deputy Or Calendar Clerk's [facility] Lab Results: +/- 30 days of the encounter This section includes the Chemistry and Hematology Lab Results on record with [place] for the patient. Radiology Reports and Pathology Reports are provided separately, in subsequent sections. Lab Results This section contains the Chemistry/Hematology Results that were resulted 30 days before or 30 daysafter the date of the Encounter. Date/Time Source Result Type Result - Unit Interpretation Reference Range Comment Jun 22, 2024 02:57 PM [facility] URINALYSIS Specimen Type: URINE Comment: If Glucose = >500 and Ketones are positive, please alert the Physician. Ordering Provider: JESSICA MCCURDY Report Released Date/Time: May 24, 2024 02:10 PM Reporting Lab: [address] [address] Performing Lab: [address] [address] UA COLOR Light-Yellow Yellow UA APPEARANCE Clear Clear UA GLUCOSE Normal mg/dL Negative UA KETONES NEGATIVE mg/dL Negative UA BLOOD NEGATIVE mg/dL Negative UA PROTEIN NEGATIVE mg/dL Negative UA NITRITE NEGATIVE mg/dL Negative UA BILIRUBIN NEGATIVE mg/dL Negative UA SPECIFIC GRAVITY 1.029 H 1.016-1.022 UA pH 5.5 5.0-9.0 UA UROBILINOGEN Normal mg/dL <2.0 UA LEUKOCYTE NEGATIVE Negative Jun 22, 2024 02:57 PM [facility] MICROALBUMIN CREATININE RATIO PANEL Spe cimen Type: URINE No comment entered. Ordering Provider: JESSICA MCCURDY Report Released Date/Time: May 24, 2024 02:10 PM Reporting Lab: [address] [address] Performing Lab: [address] [address] MICROALBUMIN/C REATININE RATIO 6.3 mg/g 0-29.9 MICROALBUMIN,Q UANTITATIVE 0.8 mg/dL RR UNAVAIL CREATININE URINE 127.87 mg/dL Jun 22, 2024 01:35 PM [facility] URIC ACID Specimen Type: SERUM No comment entered. Ordering Provider: JESSICA MCCURDY Report Released Date/Time: May 24, 2024 02:10 PM Reporting Lab: [address] [address] Performing Lab: [address] [address] URIC ACID 6.1 mg/dL 3.5-7.2 Jun 22, 2024 01:35 PM [facility] VITAMIN D (25-OH) Specimen Type: SERUM No comment entered. Ordering Provider: JESSICA MCCURDY Report Released Date/Time: May 24, 2024 02:10 PM Reporting Lab: [address] [address] Performing Lab: [address] [address] VITAMIN D (25-OH) 15 ng/mL L 20-50 Jun 22, 2024 01:35 PM [facility] CBC AND DIFF (AUTO) Specimen Type: BLOOD No comment entered. Ordering Provider: JESSICA MCCURDY Report Released Date/Time: May 24, 2024 02:10 PM Reporting Lab: [address] [address] Performing Lab: [address] [address] WBC 5.15 10*3/uL 4.50-11.00 RBC 5.35 10*6/uL [...] 10*3/uL 0.00-0.00 Jun 22, 2024 01:35 PM [facility] FERRITIN Specimen Type: SERUM No comment entered. Ordering Provider: JESSICA MCCURDY Report Released Date/Time: May 24, 2024 02:10 PM Reporting Lab: [facility] [address] [address] Performing Lab: [address] [address] FERRITIN 304 ng/mL H 20-300 Jun 22, 2024 01:35 PM [facility] TSH Specimen Type: SERUM No comment entered. Ordering Provider: JESSICA MCCURDY Report Released Date/Time: May 24, 2024 02:10 PM Reporting Lab: [facility] [address] [address] Performing Lab: [address] [address] TSH 1.30 u[IU]/mL 0.35-5.00 Jun 22, 2024 01:35 PM [facility] HEMOGLOBIN A1C PANEL Specimen Type: BLOOD Comment: [...] May 24, 2024 02:10 PM Reporting Lab: [facility] [address] [address] Performing Lab: [facility] [address] [address] HEMOGLOBIN A1C 4.4 4.0-5.6 Jun 22, 2024 01:35 PM [facility] PSA Specimen Type: SERUM No comment entered. Ordering Provider: JESSICA MCCURDY Report Released Date/Time: May 24, 2024 02:10 PM Reporting Lab: [facility] [address] [address] Performing Lab: [address] [address] PSA 0.34 ng/mL 0.00-4.00 Jun 22, 2024 01:35 PM [facility] BASIC METABOLIC PANEL (fasting) Specime n Type: SERUM No comment entered. Ordering Provider: JESSICA MCCURDY Report Released Date/Time: May 24, 2024 02:10 PM Reporting Lab: [address] [address] Performing Lab: [address] [address] UREA NITROGEN 18 mg/dL 7-25 GLUCOSE 95 mg/dL 65-100 SODIUM 141 mmol/L 135-145 POTASSIUM 4.1 mmol/L 3.5-5.0 CHLORIDE 105 mmol/L 100-110 CO2 24 meq/L 20-30 CREATININE, Serum 0.77 mg/dL 0.50-1.40 eGFR(CKD-EPI 2020) >90 mL/min >60 Jun 22, 2024 01:35 PM [facility] LIVER FUNCTION Specimen Type: SERUM No comment entered. Ordering Provider: JESSICA MCCURDY Report Released Date/Time: May 24, 2024 02:10 PM Reporting Lab: [facility] [address] [address] Performing Lab: [address] [address] PROTEIN,TOTAL 7.8 g/dL 6.0-8.3 ALBUMIN 4.7 g/dL 3.5-5.0 ALKALINE PHOSPHATASE 81 U/L 40-150 AST 23 U/L 5-34 ALT 45 U/L BILIRUBIN, TOTAL 1.0 mg/dL 0.2-1.2 Jun 22, 2024 01:35 PM [facility] LIPID PANEL FASTING Specimen Type: SERUM No comment entered. Ordering Provider: JESSICA MCCURDY Report Released Date/Time: May 24, 2024 02:10 PM Reporting Lab: [address] [address] Performing Lab: [address] [address] CHOLESTEROL 264 mg/dL H TRIGLYCERIDE 353 mg/dL H 0-150 LDL calculated Reflex to dLD L mg/dL 0-129 CHOL/HDL 5.7 HDL CHOLESTEROL 46 mg/dL 40-60 LDL DIRECT 168 mg/dL H Jun 22, 2024 01:35 PM [facility] CALCIUM Specimen Type: SERUM No comment entered. Ordering Provider: JESSICA MCCURDY Report Released Date/Time: May 24, 2024 02:10 PM Reporting Lab: [address] [address] Performing Lab: [address] [address] CALCIUM 9.9 mg/dL 8.5-10.2 Radiology Reports: +/- [...] the Encounter. The data comes from all [place] treatment facilities. Date/Time Radiology Report Provider Source Jun 22, 2024 08:10 AM CHEST (2 VIEWS): BERRY LOPEZ [id number] -1975 M Exm Date: JUN 22, 2024@08:10 Req Phys: JESSICA MCCURDY Pat Loc: CWM/SO/PACT 3 [facility] (Req'g Loc) Img Loc: [facility]BUILDING 1 Service: Unknown [facility] [place], [place] [address] (Case [id number] COMPLETE) CHEST (2 VIEWS) (RAD Detailed) CPT:74649 Reason for Study: HTN Clinical History: baseline any megaly? Report Status: Verified Date Reported: JUN 22, 2024 Date Verified: JUN 22, 2024 Anesthesia Attending E-Sig: Report: CHEST (2 VIEWS) HISTORY: Hypertension, baseline COMPARISON: None TECHNIQUE: Images were obtained at the local [place], and then submitted to the National Teleradiology [...] process identified. READING PHYSICIAN: Anselmo Franco M.D. -[phone] 06/22/2024 9:[address] [facility] National Teleradiology Program [phone] (For Medical Practitioner Use Only) Attention Patients / Veterans: If you have questions or concerns about these test results, please contact your ordering provider or primary care team. Primary Diagnostic Code: NO ALERT REQUIRED Primary Interpreting Staff: RADIOLOGY,OUTSIDE SERVICE, Staff Physician / RADIOLOGY,OUTSIDE SERVICE [facility] Encounter Notes: All associated encounter notes This section contains the clinical notes associated to the Encounter. Date/Time Encounter Note(s) Provider Source Jun 25, 2024 09:21 AM CARDIOLOGY PROCEDU RE NOTE: LOCAL TITLE: EKG OUTPATIENT RESULT STANDARD TITLE: CARDIOLOGY PROCEDURE NOTE DATE OF NOTE: JUN 25, 2024@09:21 ENTRY DATE: JUN 25, 2024@09:21:38 AUTHOR: NII ARGUETA EXP COSIGNER: URGENCY: STATUS: COMPLETED An EKG was done on: May Please see [facility] for the EKG result. /holli/ NII ARGUETA Cardiac EKG Arnp Signed: 06/25/2024 09:22 NII ARGUETA [facility]
--- OUTSIDE RECORDS SUMMARY | 2024-07-16 10:04 | XMS_ITS | Data Portability ---
Author Organization [facility] [employer], [id number] Address [address] [place] [address] Care Team Providers Care Medical Underwriter Name Role Phone ISAURA ROBLES Primary Care Provider Assessment No assessment recorded. Plan of Treatment Reminders Order Date Submit Date Provider Last Modified By Organization Details Last Modified Time Details Appointments None recorded. Lab None recorded. Referral None recorded. Procedures None recorded. Surgeries None recorded. Imaging None recorded. Medication Orders Bactrim DS 800 mg-160 mg tablet 2022 023 [facility]acy #[id number], [address] [place], [address], 11:29:17 ibuprofen 600 mg tablet 2022 023 [facility] #[id number], [address] [place], [address], 11:29:18 Patient TargetsNo targets recorded. Patient Instructions Encounter Date Encounter Id Patient Instructions Last Modified By Organization Details Last Modified Time 10/17/2022 [id number] cellulitis: care instructions [email or web address] Not available 10/17/2022 11:29:15 Apply a warm compress to the affected area for 15-20 minutes at a time up to 4 times a day. Not available 10/17/2022 10:33:10 Reason for Referral None Reported. Procedures Surgical History Date Name Laterality Status Provider Name and Address Organization Details Recorded Time colonoscopy completed TEMO CHOW PA - [facility] 10/17/2022 10:42:24 biopsy of liver completed TEMO CHOW PA - [facility] 10/17/2022 10:42:31 Imaging Results None recorded. Procedure Notes None recorded. Medical Equipment None Reported. Allergies Allergen ID Allergen Name Allergen Category Reaction Reaction Severity Criticality Documentation Date Start Date Code Code System Note Provider Name and Address Organization Details Recorded Time 423891 Substance with morphinan structure and opioid receptor agonist mechanism of action (substanc e) medicatio n dizziness vomiting Not available Not available Not available 10/17/2022 51828 9000 SNOMED TEMO maynard PA - [facility] 3 10:38:17 Medications Name Sig Start Date Stop Date Status Note LastModified by Organization Details LastModified Time benzonatate 200 mg capsule TAKE 1 CAPSULE BY MOUTH THREE TIMES A DAY FOR 5 DAYS 10/17 completed Not Available Not Available Not Available tramadol 50 mg tablet TAKE 1 TABLET BY MOUTH EVERY 8 HOURS NEEDED FOR PAIN 10/17 completed Not Available Not Available Not Available amoxicillin 250 mg capsule TAKE 1 CAPSULE BY MOUTH EVERY 8 HOURS 10/17 completed Not Available Not Available Not Available ibuprofen 600 mg tablet 1 po q 8 h with food prn pain 2022 active Not Available Not Available Not Avai lable albuterol sulfate HFA 90 mcg/actuati on aerosol inhaler INHALE 2 PUFFS BY MOUTH EVERY 6 HOURS NEEDED FOR BRONCHOSP ASM active Not Available Not Available No t Available Bactrim DS 800 mg-160 mg tablet Take 1 tablet every 12 hours by oral route with meals for 10 days. 2022 active Not Available Not Available Not Avai lable GaviLyte-G 236 gram-22.74 gram-6.74 gram-5.86 gram oral solution TAKE 8 OUNCE BY MOUTH DIRECTED FOLLOW INSTRUCTI ONS PROVIDED BY OFFICE 10/17 completed Not Available Not Available Not Available Vitals Date Recorded Body height Body mass index (BMI) Body weight Body temperature Oxygen saturation Oxygen saturation in Arterial blood by Pulse oximetry Heart rate Respiratory rate Systolic blood pressure Diastolic blood pressure Provider Name and Address Organization Details Last Updated DateTime 3 170.18 cm 32.1 kg/m2 88832.4 4 g 99.1 [degF] 98 % 98 % 97 /min 16 /min 141 mm[Hg] 97 mm[Hg] TEMO CHOW PA - [facility] 10:44:31 Social History Question Answer Notes LastModified by Organizat ion Details LastModified Time Tobacco Smoking Status Never Smoker [place] [place] - [facility] 10/17/2022 10:42:03 What Is Your Level Of Alcohol Consumption? Occasional [email or web address] Information not available 10/17/2022 Which Illicit Or Recreational Drugs Have You Used? Marijuana Occas [email or web address] Information not available 10/17/2022 Do You Use Any Illicit Or Recreational Drugs? Yes [email or web address] Information not available 10/17/2022 Have You Recently Traveled Abroad? No [email or web address] Information not available 10/17/2022 Do You Or Have You Ever Used Any Other Forms Of Tobacco Or Nicotine? No [email or web address] Information not available 10/17/2022 Sex: Unknown Functional Status None recorded. Mental Status None recorded. Family History Relationship Description Onset Age of this Age Resolved Age Notes LastModified by Organization Details LastModified Time Father Diabetes mellitus [email or web address] Not available 2022 10:40:44 Father Myocardial infarction [email or web address] Not available 10/17 10:41:03 Paternal Grandfather Myocardial infarction [email or web address] Not available 10/17 10:40:59 Medical History No medical history recorded. Past Encounters Encounter ID Performer Location Encounter Start Date Encounter Closed Date Diagnosis/Indication Diagnosis SNOMED-CT Code Diagnosis ICD10 Code [id number] [place] [address] [address] 10/17/2022 09:43:03 10/17/2022 11:36:54 Cellulitis 623312696 L03.90 Health Concerns Section Related Observation LastModified by Organization Detai ls LastModified Time None Recorded Concern Status LastModified by Organization Details LastModified Time None Recorded Advance Directives Directive None Recorded Payers Encounter Date Sequence Insurance Name Policy Number Policy W[place] Covered Member ID Wadsworth Member ID Guarantor Name 10/17/[address] [facility] [id number] Ceferino Ferro [id number] Ceferino Ferro Notes Date Note Type Note Provider Name and Address Organization Details Recorded Time 10/17/2022 text/html AbscessReported bypatient.Notes:47 yo malec/o abscess in the middle of buttocks+ pain+ drainageno bleeding+ subjective fever+ chillsno n/vno otc meds He had a colonoscopy a few years ago and has one booked for next month Chris Gant, DO [address] [place], [address], PA - [facility] 10/17/2022 11:29:46
--- OUTSIDE RECORDS SUMMARY | 2024-07-16 10:04 | XMS_ITS ---
Author Name [facility] [place] [facility] [place] [facility] [place] Address [address] [place] [address] Care Team Providers Care Trains Service Conductor Name Role Phone JESSICA MCCURDY Primary Care Provider Unavailabl e Selected Encounter This section includes the information on record at [place] for the Encounter. Date/Time Encounter Type Encounter Description Reason Pro vider Source Aug 25, 2023 12:00 AM Outpatient Encounter EVENT (HISTORICAL) IHE Encounter Template Text not used by [place]
--- OUTSIDE RECORDS SUMMARY | 2024-07-16 10:04 | XMS_ITS ---
Author Name [facility] [place] Organization [facility] [place] [facility] [place] Address [address] [place] [address] Care Team Providers Care Ticket Counter Name Role Phone JESSICA MCCURDY Primary Care Provider Unavailabl e Selected Encounter This section includes the information on record at [place] for the Encounter. Date/Time Encounter Type Encounter Description Reason Pro vider Source May 24, 2024 01:11 PM Outpatient Encounter EVENT (HISTORICAL) IHE Encounter Template [...] 18, 2024 06:00 PM AMBULATORY - MEDICINE [place] [facility] [place] [facility] Jun 18, 2024 06:30 PM AMBULATORY - MEDICINE MD [facility] [place] [facility] Jun 22, 2024 01:30 PM AMBULATORY [...] May 24, 2024 02:09 PM Consult Order [facility] Cons Manager Of [employer] May 24, 2024 02:09 PM Consult Order [facility] Cons Manager Of [employer] Lab Results: +/- 30 days of the [...] Range Comment Jun 22, 2024 02:57 PM [facility] URINALYS[facility] Specimen Type: URINE Comment: If Glucose = >500 and Ketones are positive, please alert the Physician. Ordering Provider: JESSICA MCCURDY Report Released Date/Time: May 24, 2024 02:10 PM Reporting Lab: [address] [address] Performing Lab: [address] [address] UA COLOR Light-Yellow Yellow UA APPEARANCE Clear Clear UA GLUCOSE Normal mg/dL Negative UA KETONES NEGATIVE mg/dL Negative UA BLOOD NEGATIVE mg/dL Negative UA PROTEIN NEGATIVE mg/dL Negative UA NITRITE NEGATIVE mg/dL Negative UA BILIRUBIN NEGATIVE mg/dL Negative UA SPECIFIC GRAVITY 1.029 H 1.016-1.022 UA pH 5.5 5.0-9.0 UA UROBILINOGEN Normal mg/dL <2.0 UA LEUKOCYTE NEGATIVE Negative Jun 22, 2024 02:57 PM [facility] MICROALBUMIN CREATININE RATIO PANEL Spe cimen Type: URINE No comment entered. Ordering Provider: JESSICA MCCURDY Report Released Date/Time: May 24, 2024 02:10 PM Reporting Lab: [address] [address] Performing Lab: [facility] [address] [address] MICROALBUMIN/C REATININE RATIO 6.3 mg/g 0-29.9 MICROALBUMIN,Q UANTITATIVE 0.8 mg/dL RR UNAVAIL CREATININE URINE 127.87 mg/dL Jun 22, 2024 01:35 PM [facility] URIC ACID Specimen Type: SERUM No comment entered. Ordering Provider: JESSICA MCCURDY Report Released Date/Time: May 24, 2024 02:10 PM Reporting Lab: [address] [address] Performing Lab: [address] [address] URIC ACID 6.1 mg/dL 3.5-7.2 Jun 22, 2024 01:35 PM [facility] VITAMIN D (25-OH) Specimen Type: SERUM No comment entered. Ordering Provider: JESSCIA MCCURDY Report Released Date/Time: May 24, 2024 02:10 PM Reporting Lab: [address] [address] Performing Lab: [address] [address] VITAMIN D (25-OH) 15 ng/mL L 20-50 Jun 22, 2024 01:35 PM [facility] CBC AND DIFF (AUTO) Specimen Type: BLOOD No comment entered. Ordering Provider: JESSICA MCCURDY Report Released Date/Time: May 24, 2024 02:10 PM Reporting Lab: [address] [address] Performing Lab: [address] [address] WBC 5.15 10*3/uL 4.50-11.00 RBC 5.35 10*6/uL [...] 10*3/uL 0.00-0.00 Jun 22, 2024 01:35 PM [facility] FERRITIN Specimen Type: SERUM No comment entered. Ordering Provider: JESSICA MCCURDY Report Released Date/Time: May 24, 2024 02:10 PM Reporting Lab: [address] [address] Performing Lab: [address] [address] FERRITIN 304 ng/mL H 20-300 Jun 22, 2024 01:35 PM [facility] TSH Specimen Type: SERUM No comment entered. Ordering Provider: JESSICA MCCURDY Report Released Date/Time: May 24, 2024 02:10 PM Reporting Lab: [address] [address] Performing Lab: [address] [address] TSH 1.30 u[IU]/mL 0.35-5.00 Jun 22, 2024 01:35 PM [facility] HEMOGLOBIN A1C PANEL Specimen Type: BLOOD Comment: [...] May 24, 2024 02:10 PM Reporting [facility]: [facility] [address] [address] Performing Lab: [address] [address] HEMOGLOBIN A1C 4.4 4.0-5.6 Jun 22, 2024 01:35 PM [facility] PSA Specimen Type: SERUM No comment entered. Ordering Provider: JESSICA MCCURDY Report Released Date/Time: May 24, 2024 02:10 PM Reporting Lab: [facility] [address] [address] Performing Lab: [address] [address] PSA 0.34 ng/mL 0.00-4.00 Jun 22, 2024 01:35 PM [facility] BASIC METABOLIC PANEL (fasting) Specime n Type: SERUM No comment entered. Ordering Provider: JESSICA MCCURDY Report Released Date/Time: May 24, 2024 02:10 PM Reporting [facility]: [facility] [address] [address] Performing Lab: [address] [address] UREA NITROGEN 18 mg/dL 7-25 GLUCOSE 95 mg/dL 65-100 SODIUM 141 mmol/L 135-145 POTASSIUM 4.1 mmol/L 3.5-5.0 CHLORIDE 105 mmol/L 100-110 CO2 24 meq/L 20-30 CREATININE, Serum 0.77 mg/dL 0.50-1.40 eGFR(CKD-EPI 2020) >90 mL/min >60 Jun 22, 2024 01:35 PM [facility] LIVER FUNCTION Specimen Type: SERUM No comment entered. Ordering Provider: JESSICA MCCURDY Report Released Date/Time: May 24, 2024 02:10 PM Reporting Lab: [facility] [address] [address] Performing Lab: [facility] [address] [address] PROTEIN,TOTAL 7.8 g/dL 6.0-8.3 ALBUMIN 4.7 g/dL 3.5-5.0 ALKALINE PHOSPHATASE 81 U/L 40-150 AST 23 U/L 5-34 ALT 45 U/L BILIRUBIN, TOTAL 1.0 mg/dL 0.2-1.2 Jun 22, 2024 01:35 PM [facility] LIPID PANEL FASTING Specimen Type: SERUM No comment entered. Ordering Provider: JESSICA MCCURDY Report Released Date/Time: May 24, 2024 02:10 PM Reporting Lab: [address] [address] Performing Lab: [address] [address] CHOLESTEROL 264 mg/dL H TRIGLYCERIDE 353 mg/dL H 0-150 LDL calculated Reflex to dLD L mg/dL 0-129 CHOL/HDL 5.7 HDL CHOLESTEROL 46 mg/dL 40-60 LDL DIRECT 168 mg/dL H Jun 22, 2024 01:35 PM [facility] CALCIUM Specimen Type: SERUM No comment entered. Ordering Provider: JESSICA MCCURDY Report Released Date/Time: May 24, 2024 02:10 PM Reporting Lab: [address] [address] Performing Lab: [address] [address] CALCIUM 9.9 mg/dL 8.5-10.2 Radiology Reports: +/- [...] the Encounter. The data comes from all [facility] facilities. Date/Time Radiology Report Provider Source Jun 22, 2024 08:10 AM CHEST (2 VIEWS): BERRY LOPEZ [id number] -1975 M Ex Date: JUN 22, 2024@08:10 Req Phys: JESSICA MCCURDY Loc: [facility]/SO/PACT 3 WH (Req'g Loc) Img Loc: [facility]/BUILDING 1 Service: Unknown [facility] [place] [address] (Case 188 COMPLETE) CHEST (2 VIEWS) (RAD Detailed) CPT:57456 Reason for Study: HTN Clinical History: baseline any megaly? Report Status: Verified Date Reported: JUN 22, 2024 Date Verified: JUN 22, 2024 [employer] Screen Watcher E-Sig: Report: CHEST (2 VIEWS) HISTORY: Hypertension, [...] process identified. READING PHYSICIAN: Anselmo Franco M.D. -[phone] 06/22/2024 9:20 EST [facility] National Teleradiology Program [phone] (For Medical Practitioner Use Only) Attention Patients / Veterans: If you have questions or concerns about these test results, please contact your ordering provider or primary care team. Primary Diagnostic Code: NO ALERT REQUIRED Primary Interpreting Staff: RADIOLOGY,OUTSIDE SERVICE, Staff Physician / RADIOLOGY,OUTSIDE SERVICE [facility] Encounter Notes: All associated encounter notes This section contains the clinical notes associated to the Encounter. Date/Time Encounter Note(s) Provider Source May 24, 2024 01:11 PM ALLERGY & IMMUNOLO GY ADVERSE EVENT NOTE: LOCAL TITLE: Adverse React/Allergy STANDARD TITLE: ALLERGY & IMMUNOLOGY ADVERSE EVENT NOTE DATE OF NOTE: MAY 24, 2024@13:11:43 ENTRY DATE: MAY 24, 2024@13:11:43 AUTHOR: JESSICA MCCURDY COSIGNER: URGENCY: STATUS: COMPLETED This patient has had the following reactions signed-off on May 24, 2024@13:11:43. TRAMADOL /es/ JESSICA MCCURDY PA-C STAFF PHYSICIAN BUSINESS CASE ANALYST Signed: 05/24/2024 14:27 JESSICA MCCURDY
--- OUTSIDE RECORDS SUMMARY | 2024-07-16 10:04 | XMS_ITS ---
Author Name [facility] [facility] [place] [facility] [place] Address [address] [place] [address] Care Team Providers Care Surveyor Geodetic Name Role Phone JESSICA MCCURDY Primary Care Provider Unavailabl e Selected Encounter This section includes the information on record at [place] for the Encounter. Date/Time Encounter Type Encounter Description Reason Pro vider Source May 15, 2024 01:34 PM Outpatient Encounter PRIMARY CARE/MEDICINE IHE Encounter Template Text not used by [place] Plan of Treatment: Future Appointments (+ 6 months) and Future Tests (+/- 45 days) The Plan of Treatment section includes future care activities for the patient from all [place] treatmentfacilities. This section includes future appointments and future orders which are active, pending or scheduled. Future Appointments This section includes appointments that were scheduled to occur 6 months from the date of the Encounter, up to a maximum of 20 appointments. The data comes from all [place] treatment facilities. Appointment Date/Time Appointment Type Appointme nt Facility Name May 24, 2024 01:00 PM [facility]ORY - [facility]ICINE [facility] Jun 18, 2024 06:00 PM [place] [facility] [place] [facility] Jun 18, 2024 06:30 PM [place] [facility] [place] [facility] Jun 22, 2024 01:30 PM [facility] - [facility] Jun 22, 2024 02:00 PM [facility]ORY - MEDICINE [facility] Jul 17, 2024 12:30 PM AM[facility]ULATORY - MEDICINE [facility] Jul 23, 2024 02:30 PM [facility] - [facility]ICINE [facility] Active, Pending, and Scheduled Orders This section includes a listing of several types of active, pending, and scheduled orders, including clinic medications orders, diagnostic test orders, procedure orders and consult orders; where the start date of the order is 45 days before the date of the Encounter or 45 days after the date of theEncounter. The data comes from all [place] treatment facilities. Test Date/Time Test Type Test Details Facility Name May 24, 2024 02:09 PM Consult Order COMMUNITY CARE-MRI [facility] May 24, 2024 02:09 PM Consult Order COMMUNITY CARE-MRI Cons [facility] Encounter Notes: All associated encounter notes This section contains the clinical notes associated to the Encounter. Date/Time Encounter Note(s) Provider Source May 15, 2024 01:36 PM ADDENDUM: LOCAL TITLE: Addendum STANDARD TITLE: ADDENDUM DATE OF NOTE: MAY 15, 2024@13:36:18 ENTRY DATE: MAY 15, 2024@13:36:19 AUTHOR: DARREN JUAN EXP COSIGNER: URGENCY: STATUS: COMPLETED 60 MIN NEW PT APPT SCHEDULED FOR 05/24/24 @[address] [facility] IS ROBLES DELAROSA AT [facility] NEW PT PACKET MAILED TO [facility] TO PACT 9 /holli/ DARREN JUAN BANK SALES AND SERVICE MANAGER [employer] SERVICER Signed: 05/15/2024 13:37 Receipt Acknowledged By: 05/15/2024 15:14 /es/ Kirstie Martinez RN Registered Nurse (RN) 05/15/2024 14:30 /es/ JESSICA MCCURDY PA-C STAFF PHYSICIAN CHIROPRACTIC NEUROLOGIST 05/15/2024 13:59 /es/ RAEANN GAN LPN LICENSED PRACTICAL NURSE 05/16/2024 11:47 /es/ LIGIA VILLA Advanced Ceramic Tiler --- Original Document --- 05/15/24 PATIENT LETTER (B): [facility] [address] [place] [id number] [phone] * [phone] * BERRY LOPEZ [address] [place], [place] [address] Date: MAY 15, 2024 Dear [place]: Welcome to patient aligned care team 9 (PACT 9) with Dr. Kingston James. Prior to meeting you at your new patient appointment we are requesting some of your past medical history so that we may provide you with the exceptional care you deserve. Please note that it is very helpful to have these documents at least two days prior to your appointment date as the more information we have the better we will be able to meet your needs: * Last History & Physical * Immunization records * Medication list * Diagnosis list * Most recent labs * Diagnostic screens (Colonoscopy, Abdominal Aortic Aneurysm screen, Mammograms, PAPS, etc.) You may either drop the requested records off in person to [address] [place] [address] or you may have them faxed to: [phone] ATTN: PACT 9 *Also please complete the enclosed new patient packet and drop it off at our [place] location: [address] [place] [address]* If you have any questions please do not hesitate to contact the Department of [facility]s Affairs call center at . We look forward to providing your health care! Sincerely, Office Staff for: [facility] [place] [facility] [address] [place] [phone] T [phone] F [phone] Upcoming Appointments: 05/24/2024 13:00 CWM/SO/PACT 3 WH APPOINTMENT ABBREVIATION HUSSEIN (SPOPC OR SO = [place], [address] [facility]) (GOPC OR GO = [place], [address] [facility]) ([facility] [place] = [facility]) ([facility] - Video Call) (Tel-X Telephone Visit) (TH - Telehealth) 05/16/2024 ADDENDUM STATUS: COMPLETED Medical records requested /holli/ LIGIA VILLA Advanced Ceramic Tiler Signed: 05/16/2024 11:48 DARREN JUAN May 15, 2024 01:34 PM LETTERS: LOCAL TITLE: PATIENT LETTER (B) STANDARD TITLE: LETTERS DATE OF NOTE: MAY 15, 2024@13:34 ENTRY DATE: MAY 15, 2024@13:35 AUTHOR: DARREN JUAN EXP COSIGNER: URGENCY: STATUS: COMPLETED PATIENT LETTER (B) Has ADDENDA [facility] [address] [place] [address] [phone] * BERRY LOPEZ [address] [place], [place] [address] Date: MAY 15, 2024 Dear : Welcome to patient aligned care team 9 (PACT 9) with Dr. Kingston James. Prior to meeting you at your new patient appointment we are requesting some of your past medical history so that we may provide you with the exceptional care you deserve. Please note that it is very helpful to have these documents at least two days prior to your appointment date as the more information we have the better we will be able to meet your needs: * Last History & Physical * Immunization records * Medication list * Diagnosis list * Most recent labs * Diagnostic screens (Colonoscopy, Abdominal Aortic Aneurysm screen, Mammograms, PAPS, etc.) You may either drop the requested records off in person to [address] [place] [address] or you may have them faxed to: [phone] ATTN: PACT 9 *Also please complete the enclosed new patient packet and drop it off at our [place] location: [address] [place] [address]* If you have any questions please do not hesitate to contact the Department of 's Affairs call center at . We look forward to providing your health care! Sincerely, Office Staff for: [facility] [facility] [address] [place] [id number] T [phone] F [phone] Upcoming Appointments: 05/24/2024 13:00 CWM/SO/PACT 3 WH APPOINTMENT ABBREVIATION HUSSEIN (SPOPC OR SO = [address]) (GOPC OR GO = [address]) ([facility] = [facility]) ([facility] - Video Call) (Tel-X Telephone Visit) (TH - Telehealth) 05/15/2024 ADDENDUM STATUS: COMPLETED 60 MIN NEW PT APPT SCHEDULED FOR 05/24/24 @1300 [facility] IS ROBLES DELAROSA AT [facility] NEW PT PACKET MAILED TO RTC TO PACT 9 /holli/ DARREN JUAN BANK SALES AND SERVICE MANAGER [employer] SERVICER Signed: 05/15/2024 13:37 Receipt Acknowledged By: 05/15/2024 15:14 /es/ Kirstie Martinez RN Registered Nurse (RN) 05/15/2024 14:30 /es/ JESSICA MCCURDY PA-C STAFF PHYSICIAN CHIROPRACTIC NEUROLOGIST 05/15/2024 13:59 /es/ RAEANN GAN LPN LICENSED PRACTICAL NURSE 05/16/2024 11:47 /es/ LIGIA VILLA Advanced Ceramic Tiler 05/16/2024 ADDENDUM STATUS: COMPLETED Medical records requested /holli/ LIGIA VILLA Advanced Ceramic Tiler Signed: 05/16/2024 11:48 DARREN JUAN
--- OUTSIDE RECORDS SUMMARY | 2024-07-16 10:04 | XMS_ITS | Encounter Summary ---
Author Name [facility] Address [address] [place] [address] Care Team Providers Care Center Mgr Name Role Phone JESSICA MCCURDY Primary Care Provider Unavailabl e Selected Encounter This section includes the information on record at NH for the Encounter. Date/Time Encounter Type Encounter Description Reason Provider Source May 24, 2024 01:00 PM OFFICE O/P EST MOD 30 MIN PRIMARY CARE/MEDICINE ICD-10-CM I10 Essential (primary) hypertension JESSICA MCCURDY Radha Encounter Template Text not used by NH Assessments - Encounter Diagnoses This section includes the primary and secondary diagnoses documented for the Encounter. Date/Time Primary/Secondary Diagnosis Diagnosis Name Provider Source May 24, 2024 02:26 PM PRIMARY Essential (primary) hypertension JESSICA MCCURDY HAO May 24, 2024 02:26 PM SECONDARY Hemochromatosis, unspecified JESSICA MCCURDY HAO May 24, 2024 02:26 PM SECONDARY Pure hypercholesterolemi a, unspecified JESSICA MCCURDY [facility] Plan of Treatment: Future Appointments (+ 6 months) and Future Tests (+/- 45 days) The Plan of Treatment section includes future care activities for the patient from all NH treatmentfacilities. This section includes future appointments and future orders which are active, pending or scheduled. Future Appointments This section includes appointments that were scheduled to occur 6 months from the date of the Encounter, up to a maximum of 20 appointments. The data comes from all NH treatment facilities. Appointment Date/Time Appointment Type Appointme nt Facility Name Jun 18, 2024 06:00 PM [facility]UL[facility]ICINE [facility] Jun 18, 2024 06:30 PM [facility]ULAT[facility] Jun 22, 2024 01:30 PM AMBULATORY - [...] of theEncounter. The data comes from all NH treatment facilities. Test Date/Time Test Type Test Details Facility Name May 24, 2024 02:09 PM Consult Order COMMUNITY CARE-MRI [facility] May 24, 2024 02:09 PM Consult Order COMMUNITY CARE-MRI [facility] Lab Results: +/- 30 days of the encounter This section includes the Chemistry and Hematology Lab Results on record with NH for the patient. Radiology Reports and Pathology Reports are provided separately, in subsequent sections. Lab Results This section contains the Chemistry/Hematology Results that were resulted 30 days before or 30 daysafter the date of the Encounter. Date/Time Source Result Type Result - Unit Interpretation Reference Range Comment Jun 22, 2024 02:57 PM [facility] URINALYSIS Specimen Type: URINE Comment: If Glucose = >500 and Ketones are positive, please alert the Physician. Ordering Provider: JESSICA MCCURDY Report Released Date/Time: May 24, 2024 02:10 PM Reporting Lab: [address] [address] Performing Lab: [address] [address] UA COLOR Light-Yellow Yellow UA APPEARANCE Clear Clear UA GLUCOSE Normal mg/dL Negative UA KETONES NEGATIVE mg/dL Negative UA BLOOD NEGATIVE mg/dL Negative UA PROTEIN NEGATIVE mg/dL Negative UA NITRITE NEGATIVE mg/dL Negative UA BILIRUBIN NEGATIVE mg/dL Negative UA SPECIFIC GRAVITY 1.029 H 1.016-1.022 UA pH 5.5 5.0-9.0 UA UROBILINOGEN Normal mg/dL <2.0 UA LEUKOCYTE NEGATIVE Negative Jun 22, 2024 02:57 PM [facility] MICROALBUMIN CREATININE RATIO PANEL Spe cimen Type: URINE No comment entered. Ordering Provider: JESSICA MCCURDY Report Released Date/Time: May 24, 2024 02:10 PM Reporting Lab: [address] [address] Performing Lab: [address] [address] MICROALBUMIN/C REATININE RATIO 6.3 mg/g 0-29.9 MICROALBUMIN,Q UANTITATIVE 0.8 mg/dL RR UNAVAIL CREATININE URINE 127.87 mg/dL Jun 22, 2024 01:35 PM [facility] URIC ACID Specimen Type: SERUM No comment entered. Ordering Provider: JESSICA MCCRUDY Report Released Date/Time: May 24, 2024 02:10 PM Reporting Lab: [address] [address] Performing Lab: [address] [address] URIC ACID 6.1 mg/dL 3.5-7.2 Jun 22, 2024 01:35 PM [facility] VITAMIN D (25-OH) Specimen Type: SERUM No comment entered. Ordering Provider: JESSICA MCCURDY Report Released Date/Time: May 24, 2024 02:10 PM Reporting Lab: [address] [address] Performing Lab: [address] [address] VITAMIN D (25-OH) 15 ng/mL L 20-50 Jun 22, 2024 01:35 PM [facility] CBC AND DIFF (AUTO) Specimen Type: BLOOD No comment entered. Ordering Provider: JESSICA MCCURDY Report Released Date/Time: May 24, 2024 02:10 PM Reporting Lab: [address] [address] Performing Lab: [address] [address] WBC 5.15 10*3/uL 4.50-11.00 RBC 5.35 10*6/uL [...] 10*3/uL 0.00-0.00 Jun 22, 2024 01:35 PM [facility] FERRITIN Specimen Type: SERUM No comment entered. Ordering Provider: JESSICA MCCURDY Report Released Date/Time: May 24, 2024 02:10 PM Reporting Lab: [address] [address] Performing Lab: [address] [address] FERRITIN 304 ng/mL H 20-300 Jun 22, 2024 01:35 PM [facility] TSH Specimen Type: SERUM No comment entered. Ordering Provider: JESSICA MCCURDY Report Released Date/Time: May 24, 2024 02:10 PM Reporting Lab: [address] [address] Performing [facility]: [facility] [address] TSH 1.30 u[IU]/mL 0.35-5.00 Jun 22, 2024 01:35 PM [facility] HEMOGLOBIN A1C PANEL Specimen Type: BLOOD Comment: [...] May 24, 2024 02:10 PM Reporting Lab: [address] [address] Performing Lab: [address] [address] HEMOGLOBIN A1C 4.4 4.0-5.6 Jun 22, 2024 01:35 PM [facility] PSA Specimen Type: SERUM No comment entered. Ordering Provider: JESSICA MCCURDY Report Released Date/Time: May 24, 2024 02:10 PM Reporting Lab: [address] [address] Performing Lab: [address] [address] PSA 0.34 ng/mL 0.00-4.00 Jun 22, 2024 01:35 PM [facility] BASIC METABOLIC PANEL (fasting) Specime n Type: SERUM No comment entered. Ordering Provider: JESSICA MCCURDY Report Released Date/Time: May 24, 2024 02:10 PM Reporting Lab: [address] [address] Performing Lab: [address] [address] UREA NITROGEN 18 mg/dL 7-25 GLUCOSE 95 mg/dL 65-100 SODIUM 141 mmol/L 135-145 POTASSIUM 4.1 mmol/L 3.5-5.0 CHLORIDE 105 mmol/L 100-110 CO2 24 meq/L 20-30 CREATININE, Serum 0.77 mg/dL 0.50-1.40 eGFR(CKD-EPI 2020) >90 mL/min >60 Jun 22, 2024 01:35 PM [facility] LIVER FUNCTION Specimen Type: SERUM No comment entered. Ordering Provider: JESSICA MCCURDY Report Released Date/Time: May 24, 2024 02:10 PM Reporting Lab: [address] [address] Performing Lab: [address] [address] PROTEIN,TOTAL 7.8 g/dL 6.0-8.3 ALBUMIN 4.7 g/dL 3.5-5.0 ALKALINE PHOSPHATASE 81 U/L 40-150 AST 23 U/L 5-34 ALT 45 U/L BILIRUBIN, TOTAL 1.0 mg/dL 0.2-1.2 Jun 22, 2024 01:35 PM [facility] LIPID PANEL FASTING Specimen Type: SERUM No comment entered. Ordering Provider: JESSICA MCCURDY Report Released Date/Time: May 24, 2024 02:10 PM Reporting Lab: [address] [address] Performing Lab: [address] [address] CHOLESTEROL 264 mg/dL H TRIGLYCERIDE 353 mg/dL H 0-150 LDL calculated Reflex to dLD L mg/dL 0-129 CHOL/HDL 5.7 HDL CHOLESTEROL 46 mg/dL 40-60 LDL DIRECT 168 mg/dL H Jun 22, 2024 01:35 PM [facility] CALCIUM Specimen Type: SERUM No comment entered. Ordering Provider: JESSICA MCCURDY Report Released Date/Time: May 24, 2024 02:10 PM Reporting Lab: [address] [address] Performing Lab: [address] [address] CALCIUM 9.9 mg/dL 8.5-10.2 Vital Signs: All taken on the encounter date This section contains inpatient and outpatient Vital Signs collected on the date of the Encounter. Date/Time Temperature Pulse Blood Pressure Respiratory Rate SP02 Pain Height Weight Body Mass Index Source May 24, 2024 02:11 PM 142[facility] May 24, 2024 01:37 PM 160/114 [facility] May 24, 2024 01:35 PM 97.4 78 168/114 18 96 67 207 32 [facility] Social History: Smoking Status (Most current) and Tobacco Use (All prior to encounter date) This section includes the most current, and the historical, smoking and tobacco- related health factors from the NH facility where the Encounter took place. Current Smoking Status This section includes the most current smoking, or tobacco-related health factor, from the NH facility where the Encounter took place. Date/Time Current Smoking Status Comment Facil ity May 24, 2024 01:00 PM VA-TOBACCO NEVER USED [facility] Radiology Reports: +/- 30 days of the [...] the Encounter. The data comes from all [place] treatment facilities. Date/Time Radiology Report Provider Source Jun 22, 2024 08:10 AM CHEST (2 VIEWS): BERRY LOPEZ [id number] -1975 M Exm Date: JUN 22, 2024@08:10 Req Phys: JESSICA MCCURDY Loc: CWM/SO/PACT 3 WH (Req'g Loc) Img Loc: [facility] 1 Service[facility] [place] [address] (Case [id number] COMPLETE) CHEST (2 VIEWS) (RAD Detailed) CPT:98283 Reason for Study: HTN Clinical History: baseline any megaly? Report Status: Verified Date Reported: JUN 22, 2024 Date Verified: JUN 22, 2024 Wildlife Removal Specialist E-Sig: Report: CHEST (2 VIEWS) HISTORY: Hypertension, baseline COMPARISON: None TECHNIQUE: Images were obtained at the local [facility], and then submitted to the National Teleradiology [...] process identified. READING PHYSICIAN: Anselmo Franco M.D. -[id number] 06/22/2024 9:[address] [facility] National Teleradiology Program [phone] (For Medical Practitioner Use Only) Attention Patients / Veterans: If you have questions or concerns about these test results, please contact your ordering provider or primary care team. Primary Diagnostic Code: NO ALERT REQUIRED Primary Interpreting Staff: RADIOLOGY,OUTSIDE SERVICE, Staff Physician / RADIOLOGY,OUTSIDE SERVICE [facility] Encounter Notes: All associated encounter notes This section contains the clinical notes associated to the Encounter. Date/Time Encounter Note(s) Provider Source Jun 25, 2024 11:50 AM LETTERS: LOCAL TITLE: PATIENT LETTER (T) STANDARD TITLE: LETTERS DATE OF NOTE: JUN 25, 2024@11:50 ENTRY DATE: JUN 25, 2024@11:50:57 AUTHOR: JESSICA MCCURDY COSIGNER: URGENCY: STATUS: COMPLETED DEPARTMENT OF [facility] Toll Free Number Primary Care Telephone Assistance can be reached at extension [phone] [facility] scheduling can be reached at extension [phone] [facility] scheduling can be reached at ext [phone] BERRY LOPEZ [address], [place], [address] Dear Yesenia Pillo, Your chest x-ray was normal. JESSICA MCCURDY Physician Section Plotter Operator Sincerely, Your Primary Care Team [facility] [address] [facility] [address] [place] [address] [place] [address] [phone] [facility] [address] [place] [address] [place] [address] [phone] [facility] [address] [facility] [place] [phone] [place] [address] JESSICA MCCURDY May 24, 2024 03:11 PM ADDENDUM: LOCAL TITLE: Addendum STANDARD TITLE: ADDENDUM DATE OF NOTE: MAY 24, 2024@15:11:50 ENTRY DATE: MAY 24, 2024@15:11:51 AUTHOR: RAEANN GAN EXP COSIGNER: URGENCY: STATUS: COMPLETED msa please request last [place] and [place] [facility] [place]holli/ RAEANN GAN LPN LICENSED PRACTICAL NURSE Signed: 05/24/2024 15:12 Receipt Acknowledged By: 05/28/2024 14:48 /holli/ LIGIA VILLA Advanced Seafood Manager --- Original Document --- 05/24/24 CLINICAL REMINDERS/NURSING: Advance Directive Screen MH AD: Patient does not have a completed advance directive on file at any facility, [facility] or outside. S/he is not interested in completing one at this time. The patient received education about Advance Directives and written notification of his/her rights. BMI>30/>24.99 High Risk: Patient declines to discuss weight management. Patient declined weight discussion. Discussed revisiting at a future visit. HIV Screening: Patient has been offered HIV testing and has declined. I have explained that HIV testing is recommended for all adults, even if all risk factors are absent. The patient was educated on the risk of delayed screening. Influenza Immunization: Deferral / Refusal The patient declines to receive the recommended dose of seasonal influenza vaccine. Immunization: INFLUENZA, UNSPECIFIED FORMULATION Refusal Reason: PATIENT DECISION Patient refuses all immunization(s) in the FLU group Date Documented: 05/24/24 13:38 Tdap Immunization: The patient may have been vaccinated in the past but written documentation of vaccination is not available today. Patient instructed to obtain a written record of the prior vaccine and bring it to the next appointment. RHS Screen: RHS Screen Environmental Check Upon inquiry, the individual reports that the environment is safe to proceed. Informed Consent to Screen and Document The individual consents to proceed with screening. The individual consents to documentation of responses. PRIMARY SCREEN: In the past 12 months, how often did a current or former intimate partner (e.g., boyfriend, girlfriend, , , sexual partner): 1. Scream or curse at you Never 2. Insult or talk down to you Never 3. Threaten you with harm Never 4. Physically hurt you Never 5. Force or pressure you to have sexual contact against your will, or when you were unable to say no Never ?? The HITS tool (items 1-4 above) is US copyright protected by Julien Clark MD, and the user has full rights to use it throughout the [facility] system. PRIMARY SCREEN RESULT: The Primary Screen is NEGATIVE. The individual answered never to all forms of IPV above (i.e., answered never to all 5 items) The individual accepts education and/or resources: No EDUCATION: Other: Comments: Hepatitis A Vaccine for High Risk: Patient declines/refuses Hepatitis A immunization Immunization: HEP A, UNSPECIFIED FORMULATION Refusal Reason: PATIENT DECISION Patient refuses all immunization(s) in the HepA group Date Documented: 05/24/24 13:40 The patient declines to have Hepatitis A serology done. Reason: My first day here to establish Lipid Screening: Lipid profile ordered at this encounter by pcp. HTN Assess for Elevated BP>=140/90: The patient's medication regimen was adjusted to improve blood pressure control. Comment: PCP to started medication The patient was counseled on the importance of diet and weight loss/ control in the regulation of blood pressure. The patient was counseled to reduce their weight to within 10 percent of their ideal body weight. The possible improvement in blood pressure control with even 5 to 10 pounds of weight loss was reviewed. The contribution of dietary sodium to elevated blood pressure was reviewed. The patient was counseled to have a goal sodium intake of 1500mg per day, with no more than 2300mg per day. The patient was counseled that a diet low in dietary saturated and trans fats is beneficial in lowering blood pressure. The patient was counseled that a diet rich in fresh fruits, vegetables and whole grains is beneficial in lowering blood pressure. Home Telehealth (CCHT) Referral: Patient declines participation in CCHT Program at this time. Hepatitis C Testing: Patient declines HCV lab test. Reason: [facility] Hepatitis B Serology/Immunization: The patient declines to have HBV serology done. Reason: The patient declines to receive the recommended dose of Hepatitis B vaccine. Immunization: HEP B, UNSPECIFIED FORMULATION Refusal Reason: PATIENT DECISION Patient refuses all immunization(s) in the HepB group Date Documented: 05/24/24 14:55 COVID-19 Immunization: Vaccine given previously - no written/electronic documentation available The patient was instructed to bring a copy of their COVID-19 vaccine information to their next appointment so that this can be accurately recorded in their [facility] medical record. /holli/ RAEANN GAN LPN LICENSED PRACTICAL NURSE Signed: 05/24/2024 14:56 05/28/2024 ADDENDUM STATUS: UNSIGNED You may not VIEW this UNSIGNED Addendum. RAEANN GAN [facility] May 24, 2024 01:37 PM PREVENTIVE MEDICIN E NURSING NOTE: LOCAL TITLE: CLINICAL REMINDERS/NURSING STANDARD TITLE: PREVENTIVE MEDICINE NURSING NOTE DATE OF NOTE: MAY 24, 2024@13:37 ENTRY DATE: MAY 24, 2024@13:37:35 AUTHOR: RAEANN GAN EXP COSIGNER: URGENCY: STATUS: COMPLETED CLINICAL REMINDERS/NURSING Has ADDENDA Advance Directive Screen MH AD: Patient does not have a completed advance directive on file at any facility, NH or outside. S/he is not interested in completing one at this time. The patient received education about Advance Directives and written notification of his/her rights. BMI>30/>24.99 High Risk: Patient declines to discuss weight management. Patient declined weight discussion. Discussed revisiting at a future visit. HIV Screening: Patient has been offered HIV testing and has declined. I have explained that HIV testing is recommended for all adults, even if all risk factors are absent. The patient was educated on the risk of delayed screening. Influenza Immunization: Deferral / Refusal The patient declines to receive the recommended dose of seasonal influenza vaccine. Immunization: INFLUENZA, UNSPECIFIED FORMULATION Refusal Reason: PATIENT DECISION Patient refuses all immunization(s) in the FLU group Date Documented: 05/24/24 13:38 Tdap Immunization: The patient may have been vaccinated in the past but written documentation of vaccination is not available today. Patient instructed to obtain a written record of the prior vaccine and bring it to the next appointment. RHS Screen: RHS Screen Environmental Check Upon inquiry, the individual reports that the environment is safe to proceed. Informed Consent to Screen and Document The individual consents to proceed with screening. The individual consents to documentation of responses. PRIMARY SCREEN: In the past 12 months, how often did a current or former intimate partner (e.g., boyfriend, girlfriend, , , sexual partner): 1. Scream or curse at you Never 2. Insult or talk down to you Never 3. Threaten you with harm Never 4. Physically hurt you Never 5. Force or pressure you to have sexual contact against your will, or when you were unable to say no Never ?? The HITS tool (items 1-4 above) is [place] copyright protected by Julien Clark MD, and the user has full rights to use it throughout the NH system. PRIMARY SCREEN RESULT: The Primary Screen is NEGATIVE. The individual answered never to all forms of IPV above (i.e., answered never to all 5 items) The individual accepts education and/or resources: No EDUCATION: Other: Comments: Hepatitis A Vaccine for High Risk: Patient declines/refuses Hepatitis A immunization Immunization: HEP A, UNSPECIFIED FORMULATION Refusal Reason: PATIENT DECISION Patient refuses all immunization(s) in the HepA group Date Documented: 05/24/24 13:40 The patient declines to have Hepatitis A serology done. Reason: My first day here to establish Lipid Screening: Lipid profile ordered at this encounter by pcp. HTN Assess for Elevated BP>=140/90: The patient's medication regimen was adjusted to improve blood pressure control. Comment: PCP to started medication The patient was counseled on the importance of diet and weight loss/ control in the regulation of blood pressure. The patient was counseled to reduce their weight to within 10 percent of their ideal body weight. The possible improvement in blood pressure control with even 5 to 10 pounds of weight loss was reviewed. The contribution of dietary sodium to elevated blood pressure was reviewed. The patient was counseled to have a goal sodium intake of 1500mg per day, with no more than 2300mg per day. The patient was counseled that a diet low in dietary saturated and trans fats is beneficial in lowering blood pressure. The patient was counseled that a diet rich in fresh fruits, vegetables and whole grains is beneficial in lowering blood pressure. Home Telehealth (CCHT) Referral: Patient declines participation in CCHT Program at this time. Hepatitis C Testing: Patient declines HCV lab test. Reason: Here to [facility] today Hepatitis B Serology/Immunization: The patient declines to have HBV serology done. Reason: The patient declines to receive the recommended dose of Hepatitis B vaccine. Immunization: HEP B, UNSPECIFIED FORMULATION Refusal Reason: PATIENT DECISION Patient refuses all immunization(s) in the HepB group Date Documented: 05/24/24 14:55 COVID-19 Immunization: Vaccine given previously - no written/electronic documentation available The patient was instructed to bring a copy of their COVID-19 vaccine information to their next appointment so that this can be accurately recorded in their [facility] medical record. /ernesto GAN LPN LICENSED PRACTICAL NURSE Signed: 05/24/2024 14:56 05/24/2024 ADDENDUM STATUS: COMPLETED msa please request last colonoscopy and [place] [facility] [place]holli/ RAEANN GAN LPN LICENSED PRACTICAL NURSE Signed: 05/24/2024 15:12 Receipt Acknowledged By: 05/28/2024 14:48 /holli/ LIGIA VILLA Advanced Seafood Manager 05/28/2024 ADDENDUM STATUS: COMPLETED Colonoscopy and pathology reports requested /holli/ LIGIA VILLA Advanced Seafood Manager Signed: 05/28/2024 14:48 RAEANN GAN [facility] May 24, 2024 01:04 PM PHYSICIAN ROSS So NOTE: LOCAL TITLE: [place] NOTE STANDARD TITLE: PHYSICIAN MULTI SITE LEASING CONSULTANT NOTE DATE OF NOTE: MAY 24, 2024@13:04 ENTRY DATE: MAY 24, 2024@13:04:08 AUTHOR: JESSICA MCCURDY COSIGNER: URGENCY: STATUS: COMPLETED S - 49 y/o M Allergy: Tramadol; MEDS: see below CC: new pt initial eval HPI: see Problem List PMH: neg CAD/AMI +HTN (un-treated, un-diagnosed)) +KARL and has CPAP neg PVD or PAD neg COPD neg Asthma neg Hepatic Disorders (has hemachromatosis and consequent mild cirrhosis) neg Renal Disorders neg CVA/TIA neg Seizures neg Chronic Coagulopathy neg PUD, UGI Bleed +Hematochezia/Hemorrhoids neg Anemia, Excess Bleeding, Easy Bruising +Hemachromatosis neg Blood Transfusions neg DM neg Thyroid Disorders neg BPH any Signif Infectious Diseases? No like TB/HIV/HEP B or C neg OA some R Hip Pain (prob. soft tissue) prior X-Rays Neg for OA never CA of any kind PSH: see Problem list ROS: denies fever, night sweats denies unintended changes WT/appetite denies new fatigue denies new chest pain denies new dyspnea/SOB denies new mental staus changes (or TIA Sx) denies ABD pain denies N/V/D +chronic non-bloody diarrhea denies (chronic) constipation denies LUTS denies melena, hematochezia +eczamoid lesion pre-tib asp legs +concerning poss. Pre-Malig Lesion Face (R side of orbit, R eye) FH: +CAD (father) +DM (father) +CRC (father) neg Prostate CA Mil Hx: [facility] [place], [place] 1992 - 1996 MOS - [employer], [facility], [place] WIA - never TBI - no [place]: [employer] SH: O - coop A&Ox3 NAD W-N/H/D VS: Stable HEENT: Eyes - PERRL, anicteric OU Ears - EAC clear AU TM clear AU Oropharynx - no petechiae, uvula midline NECK: no adeno no bruits PUL: Resp full, reg, unlabored; CTA B/L COR: RRR, no M ABD: no distention no bruits no tenderness no mass/megaly RECTAL: Prostate firm, contour smooth, lobes asymmetric ((R tad larger), no nodules; is non-tender EXT: Hip (R) - no deform discol, tenderness F-AROM +Mild JEANNIE Lower Leg - no LLE or calf tenderness INTEG: NL texture/turgor NAILS: no clubbing no spooning LABS: not done yet A/P - 1) Hypertension - BP 140/102 - start Zestril, 10 MG; go up from there as indicated - RN: Re-Check BP JUN 17 - RADS: CXR as Baseline (any megaly?) - CON: EKG as Baseline 2) C/V Stable - never AL 3) Neuro Stable - never CVA/TIA 4) Hypercholesterolemia? - LABS: Lipids, LFT's 5) Normoglycemic 6) Coagulopathy - No 7) Hemachromtosis - Does Phlebotomies Every Two Months as of MAY 17 8) Ilio-Fem Lig Sprain, R Hip - RADS: already has negative plain film - RADS: MRI of R Hip 9) LBP, Non-Radicular - RADS: already has unremarkable plain films, L-spine - MRI: L-Spine MEDS: Reconciled - has list RTC JUL 17 - sooner prn Fast Labs Few Days Before Next Visit Suicide Screen: C-SSRS Screening [place]-Suicide Severity Rating Scale (C-SSRS Screener) 1. Over the past month, have you wished you were or wished you could go to sleep and not wake up? No 2. Over the past month, have you had any actual thoughts of killing yourself? No 3. Over the past month, have you been thinking about how you might do this? Response not required due to responses to other questions. 4. Over the past month, have you had these thoughts and had some intention of acting on them? Response not required due to responses to other questions. 5. Over the past month, have you started to work out or worked out the details of how to kill yourself? Response not required due to responses to other questions. 6. If yes, at any time in the past month did you intend to carry out this plan? Response not required due to responses to other questions. 7. In your lifetime, have you ever done anything, started to do anything, or prepared to do anything to end your life (for example, collected pills, obtained a gun, gave away valuables, went to the roof but didn't jump)? No 8. If YES, was this within the past 3 months? Response not required due to responses to other questions. Homelessness/Food Insecurity Screen: In the past 2 months, have you been living in stable housing that you own, rent, or stay in as part of a household? Yes - Living in stable housing. Are you worried or concerned that in the next 2 months you may NOT have stable housing that you own, rent, or stay in as part of a household? No - Not worried about housing near future The [facility] reports the following: Within the past 12 months, you worried whether your food would run out before you got money to buy more. Never true Within the past 12 months, the food you bought just didn't last and you didn't have money to get more. Never true Depression Screening: Perform PHQ-2 A PHQ-2 screen was performed. The score was 0 which is a negative screen for depression. Over the past two weeks, how often have you been bothered by the following problems? 1. Little interest or pleasure in doing things Not at all 2. Feeling down, depressed, or hopeless Not at all Lipid Screening: [place] has documentation of outside lipid profile results. Outside LDL 100-129. Date: August, ? Exact date is unknown MST Screening: Patient denies experiencing sexual trauma (MST). Depression Screening: Perform PHQ-2 A PHQ-2 screen was performed. The score was 2 which is a negative screen for depression. Over the past two weeks, how often have you been bothered by the following problems? 1. Little interest or pleasure in doing things Several days 2. Feeling down, depressed, or hopeless Several days Preferred Language: What is your, or your caregiver's preferred language for healthcare? Preferred Language: Belarusian PTSD Screening: PC-PTSD-5 A PTSD screening test (PC-PTSD-5) was negative (score=0). IN THE PAST MONTH, have you ever had any experience that was so frightening, horrible or traumatic. For example: A serious accident or fire a physical or sexual assault or abuse An earthquake or flood A war Seeing someone be killed or seriously injured Having a loved one through homicide or suicide 1. Have you ever experienced this kind of event? NO 2. Had nightmares about the event(s) or thought about the event(s) when you did not want to? Response not required due to responses to other questions. 3. Tried hard not to think about the event(s) or went out of your way to avoid situations that reminded you of the event(s)? Response not required due to responses to other questions. 4. Been constantly on guard, watchful, or easily startled? Response not required due to responses to other questions. 5. [place] numb or detached from people, activities, or your surroundings? Response not required due to responses to other questions. 6. [place] guilty or unable to stop blaming yourself or others for the event(s) or any problems the event(s) may have caused? Response not required due to responses to other questions. Tobacco Use Screening: The patient has never used tobacco. Medication Reconciliation: Outpatient: Has the patient been taking medications as documented in the EMLR? YES: The patient has been taking medications as documented in the EMLR. Essential Medication List for Review used to complete this medication reconciliation. INCLUDED IN THIS LIST: Alphabetical list of active outpatient prescriptions dispensed from this [facility] (local) and dispensed from another VA or [facility] facility (remote) as well as inpatient orders (local, pending and active), local clinic medications, locally documented non-VA medications, and local prescriptions that have or been discontinued in the past 90 days. - All changes in medications, including all non-VA/Herbal/OTC medications were entered into CPRS. Changes: nnt - If there were any medications the patient should no longer take, they were discontinued. - The patient/caregiver was instructed to update this list, discard old lists, and take this list to the next appointment, whether with a VA or non-VA provider. Alcohol Use Screen (AUDIT-C): Alcohol Screen: SCREEN FOR ALCOHOL (AUDIT-C) An alcohol screening test (AUDIT-C) was negative (score=1). 1. How often did you have a drink containing alcohol in the past year? Consider a drink to be a 12 ounce can or bottle of regular beer, 8 ounces of malt liquor, a 5 ounce glass of table wine, or a 1.5 ounce shot of liquor (like scotch, gin, or vodka). Monthly or less 2. How many drinks containing alcohol did you have on a typical day when you were drinking in the past year? One or two drinks 3. How often did you have six or more drinks on one occasion in the past year? Never Sexual Orientation: The patient thinks of their sexual orientation as: Straight or Heterosexual Avg Risk Colorectal Cancer Screen: AVERAGE RISK colorectal cancer screening is due based on information available to this clinical reminder Prior/outside colonoscopy results: approx mo.; no crc + ppolyp Date: April, ? Exact date is unknown Average risk screening reminder set 4 years from MAY 24, 2024. 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 The [facility]/caregiver was informed that we will continue to ask this screening question every 5 years. They can contact their provider/healthcare team if they have concerns about exposures and would like to be screened sooner. Printed information was offered and provided if desired. /holli/ JESSICA MCCURDY PA-C STAFF PHYSICIAN MULTI SITE LEASING CONSULTANT Signed: 05/24/2024 14:26 JESSICA MCCURDY
== END 2024-07-16 10:02 | disposition home or self-care (01) ==
LOC: HO.BBR 10:01
PROVIDERS: PCP Internal Medicine; Visit Provider Internal Medicine Medical Oncology
DX: Z13.89 Encounter for screening for other disorder (principal)

== ENCOUNTER 2024-09-27 08:51 | Outpatient (REF) | payer OTHER, SELFPAY ==
--- OUTSIDE RECORDS SUMMARY | 2024-09-27 09:40 | XMS_ITS | Encounter Summary ---
Author Name [facility] Address [address] [place] [address] Care Team Providers Care Mass Communications Instructor Name Role Phone JESSICA MCCURDY Primary Care Provider Unavailabl e Selected Encounter This section includes the information on record at [place] for the Encounter. Date/Time Encounter Type Encounter Description Reason Provider Source Jul 24, 2024 11:00 AM OFF/OP EST NOVEMBER X REQ PHY/QHP PRIMARY CARE/MEDICINE ICD-10-CM I10 Essential (primary) hypertension JESSICA MCCURDY [place] Encounter Template Text not used by [place] Assessments - Encounter Diagnoses This section includes the primary and secondary diagnoses documented for the Encounter. Date/Time Primary/Secondary Diagnosis Diagnosis Name Provider Source Jul 24, 2024 06:05 PM PRIMARY Essential (primary) hypertension ELLA MARTINEZ [place] Plan of Treatment: Future Appointments (+ 6 months) and Future Tests (+/- 45 days) The Plan of Treatment section includes future care activities for the patient from all [place] treatmentfacilities. This section includes future appointments and future orders which are active, pending or scheduled. Future Appointments This section includes appointments that were scheduled to occur 6 months from the date of the Encounter, up to a maximum of 20 appointments. The data comes from all [place] treatment facilities. Appointment Date/Time Appointment Type Appointme nt Facility Name Sep 27, 2024 02:00 PM [facility] - MEDICINE [facility] [place] Oct 01, 2024 08:30 AM [facility] [place] [facility] Nov 13, 2024 08:00 AM [place] - [place]IC[place] [facility] [place] [facility] Active, Pending, and Scheduled Orders This section includes a listing of several types of active, pending, and scheduled orders, including clinic medications orders, diagnostic test orders, procedure orders and consult orders; where the start date of the order is 45 days before the date of the Encounter or 45 days after the date of theEncounter. The data comes from all [place] treatment facilities. Test Date/Time Test Type Test Details Facility Name Jul 17, 2024 12:09 PM Consult Order [facility]-ORTHO SURGICAL Cons [facility] [employer] [facility] [place] Jul 26, 2024 04:19 PM Consult Order COMMUNITY CARE-HEMATOLOGY Cons Motor Block Mechan[facility] [place] [facility] Vital Signs: All taken on the encounter date This section contains inpatient and outpatient Vital Signs collected on the date of the Encounter. Date/Time Temperature Pulse Blood Pressure Respiratory Rate SP02 Pain Height Weight Body Mass Index Source Jul 24, 2024 10:15 AM 92 108/76 [facility] [place] Jul 24, 2024 09:45 AM 92 108/76 98 67 207 32 [facility] Social History: Smoking Status (Most current) and Tobacco Use (All prior to encounter date) This section includes the most current, and the historical, smoking and tobacco- related health factors from the [place] facility where the Encounter took place. Current Smoking Status This section includes the most current smoking, or tobacco-related health factor, from the [place] facility where the Encounter took place. Date/Time Current Smoking Status Comment Gabe price May 24, 2024 01:00 PM VA-TOBACCO NEVER USED [place] Encounter Notes: All associated encounter notes This section contains the clinical notes associated to the Encounter. Date/Time Encounter Note(s) Provider Source Jul 26, 2024 09:53 AM ADDENDUM: LOCAL TITLE: Addendum STANDARD TITLE: ADDENDUM DATE OF NOTE: JUL 26, 2024@09:53:19 ENTRY DATE: JUL 26, 2024@09:53:20 AUTHOR: ELLA MARTINEZ EXP COSIGNER: URGENCY: STATUS: COMPLETED Labs from 06/22/24 discussed with , is willing to start Antihyperlipidemic (did take Rosuvastatin in the past with no side effects but stopped taking on his own) and Vitamin D replacement. Jun 22, 2024@13:35 SERUM VITAMIN D (25-OH): 15 L ng/mL 20 - 50 LIPID PANEL CHOL 264 H mg/dL <7 - 199 TRIG 353 H mg/dL 0 - 150 HDL 46 mg/dL 40 - 60 LDL-d 168 H mg/dL <10 - 120 LDL Reflex to dLDL mg/dL0 - 129 CHO/HDL 5.7 Please order for mail if appropriate. Thanks /es/ Ella Martinez RN Registered Nurse (RN) Signed: 07/26/2024 09:56 Receipt Acknowledged By: 07/26/2024 10:01 /es/ JESSICA MCCUDRY PA-C STAFF PHYSICIAN CARRIER DRIVER ==== --- Original Document --- 07/24/24 PRIMARY CARE NURSE NOTE: LOCAL TITLE: PRIMARY CARE NURSE NOTE STANDARD TITLE: NURSING NOTE DATE OF NOTE: JUL 24, 2024@11:00 ENTRY DATE: JUL 24, 2024@11:00:42 AUTHOR: ELLA MARTINEZ EXP COSIGNER: URGENCY: STATUS: [...] Last Fill Active Outpatient Medications Refills Expiration ==== 1) LISINOPRIL 10MG TAB Qty: 60 for 60 days Sig: TAKE ONE TABLET BY MOUTH ONCE DAILY TO Indication: FOR HIGH BLOOD PRESSURE Allergies: TRAMADOL Patient Medication Management: Taking above HTN MANAGEMENT Date Vital Measurement Qualifiers 07/24/2024 10:15 Pulse 92 BP 108/76 L Arm, Sitting, Cuff- Manual, Lg Adult Cuff 07/24/2024 09:45 Ht in (cm) 67 (170.18) Wt lbs (kg)[BMI] 207 (93.89)[32*] POx (L/Min)(%) 98 At Rest Symptoms REPORTED: NONE Symptoms DENIED: CP , SOB , [place] , DZ , or palpitations, visual changes Arm Pain, Jaw Pain Home BP Monitor Education Patient re-educated on the proper technique to obtain an [...] IN EVENING BEFORE DINNER. RECORD ALL RESULTS. HOME BP MONITOR Patient has Home BP Monitor and reports the following ranges: DATE BP P 07/05/24 118/74 90 07/07/24 120/80 86 07/17/24 105/66 82 07/23/24 120/82 89 Education Discussed basic pathology of HTN & STROKE - gave appropriate handout which was reviewed with patient Educated re: diet, medication management Methods:Verbal A/P: ===== [place] started on Blood Pressure medication on 05/24/24, states he is taking as prescribed getting used to taking medications daily , he has set an alarm on his phone as we discussed at last visit, it is helping with compliance. [place] was looking for results on bloodwork done 06/22/24 and MRI Low Back done on 06/18/24. PACT RN called [facility] for MRI results, per Radiology Dept this has not been read yet, Radiology will alert radiologist to have this read NIDIA. Labs discussed with , is willing to start Antihyperlipidemic (did take Rosuvastatin in the past with no side effects but stopped taking on his own) and Vitamin D replacement. Advised to bring Log and or BP Monitor to all appointments R: RTC PRN Upcoming Appointments: 09/17/2024 11:30 CWM/SO/PACT 5 No barriers; Patient understands and agrees to current treatment plan. If pt. has any questions, concerns, or changes in current health status he/she will call or come in to the [facility]. 30 minutes spent in patient care and education /es/ Ella Martinez RN Registered Nurse (RN) Signed: 07/26/2024 09:39 ELLA MARTINEZ [place] Jul 24, 2024 11:37 AM NURSING NOTE: LOCAL TITLE: PRIMARY CARE NURSE NOTE STANDARD TITLE: NURSING NOTE DATE OF NOTE: JUL 24, 2024@11:37 ENTRY DATE: JUL 24, 2024@11:37:06 AUTHOR: ELLA MARTINEZ EXP COSIGNER: URGENCY: STATUS: COMPLETED PRIMARY CARE NURSE NOTE Has ADDENDA LOCAL TITLE: PRIMARY CARE NURSE NOTE STANDARD TITLE: NURSING NOTE DATE OF NOTE: JUL 24, 2024@11:00 ENTRY DATE: JUL 24, 2024@11:00:42 AUTHOR: ELLA MARTINEZ EXP COSIGNER: URGENCY: STATUS: [...] Last Fill Active Outpatient Medications Refills Expiration ==== 1) LISINOPRIL 10MG TAB Qty: 60 for 60 days Sig: TAKE ONE TABLET BY MOUTH ONCE DAILY TO Indication: FOR HIGH BLOOD PRESSURE Allergies: TRAMADOL Patient Medication Management: Taking above HTN MANAGEMENT Date Vital Measurement Qualifiers 07/24/2024 10:15 Pulse 92 BP 108/76 L Arm, Sitting, Cuff- Manual, Lg Adult Cuff 07/24/2024 09:45 Ht in (cm) 67 (170.18) Wt lbs (kg)[BMI] 207 (93.89)[32*] POx (L/Min)(%) 98 At Rest Symptoms REPORTED: NONE Symptoms DENIED: CP , SOB , [place] , DZ , or palpitations, visual changes Arm Pain, Jaw Pain Home BP Monitor Education Patient re-educated on the proper technique to obtain an [...] IN EVENING BEFORE DINNER. RECORD ALL RESULTS. HOME BP MONITOR Patient has Home BP Monitor and reports the following ranges: DATE BP P 07/05/24 118/74 90 07/07/24 120/80 86 07/17/24 105/66 82 07/23/24 120/82 89 Education Discussed basic pathology of HTN & STROKE - gave appropriate handout which was reviewed with patient Educated re: diet, medication management Methods:Verbal A/P: ===== started on Blood Pressure medication on 05/24/24, states he is taking as prescribed getting used to taking medications daily , he has set an alarm on his phone as we discussed at last visit, it is helping with compliance. [place] was looking for results on bloodwork done 06/22/24 and MRI Low Back done on 06/18/24. PACT RN called [facility] for MRI results, per Radiology Dept this has not been read yet, Radiology will alert radiologist to have this read NIDIA. Labs discussed with , is willing to start Antihyperlipidemic (did take Rosuvastatin in the past with no side effects but stopped taking on his own) and Vitamin D replacement. Advised to bring Log and or BP Monitor to all appointments R: RTC PRN Upcoming Appointments: 09/17/2024 11:30 CWM/SO/PACT 5 No barriers; Patient understands and agrees to current treatment plan. If pt. has any questions, concerns, or changes in current health status he/she will call or come [facility] to the [facility]. 30 minutes spent in patient care and education /es/ Ella Martinez RN Registered Nurse (RN) Signed: 07/26/2024 09:39 07/26/2024 ADDENDUM STATUS: COMPLETED Labs from 06/22/24 discussed with , [place] is willing to start Antihyperlipidemic (did take Rosuvastatin in the past with no side effects but stopped taking on his own) and Vitamin D replacement. Jun 22, 2024@13:35 SERUM VITAMIN D (25-OH): 15 L ng/mL 20 - 50 LIPID PANEL CHOL 264 H mg/dL <7 - 199 TRIG 353 H mg/dL 0 - 150 HDL 46 mg/dL 40 - 60 LDL-d 168 H mg/dL <10 - 120 LDL Reflex to dLDL mg/dL0 - 129 CHO/HDL 5.7 Please order for mail if appropriate. Thanks /holli/ Ella Martinez RN Registered Nurse (RN) Signed: 07/26/2024 09:56 Receipt Acknowledged By: 07/26/2024 10:01 /es/ JESSICA MCCURDY PA-C STAFF PHYSICIAN CARRIER DRIVER ELLA MARTINEZ
--- OUTSIDE RECORDS SUMMARY | 2024-09-27 09:40 | XMS_ITS | Encounter Summary ---
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 Date/Time Encounter Type Encounter Description Reason Provider Source Jul 17, 2024 12:30 PM OFFICE O/P EST LOW 20 MIN PRIMARY CARE/MEDICINE ICD-10-CM M25.551 Pain in right hip JESSICA MCCURDY Encounter Template Text not used by [place] Assessments - Encounter Diagnoses This section includes the primary and secondary diagnoses documented for the Encounter. Date/Time Primary/Secondary Diagnosis Diagnosis Name Provider Source Jul 17, 2024 12:16 PM PRIMARY Pain in right hip JESSICA MCCURDY Jul 17, 2024 12:16 PM SECONDARY Other low back pain JESSICA MCCURDY Plan of Treatment: Future Appointments (+ 6 months) and Future Tests (+/- 45 days) The Plan of Treatment section includes future care activities for the patient from all [place] treatmentfacilities. This section includes future appointments and future orders which are active, pending or scheduled. Future Appointments This section includes appointments that were scheduled to occur 6 months from the date of the Encounter, up to a maximum of 20 appointments. The data comes from all [place] treatment facilities. Appointment Date/Time Appointment Type Appointme nt Facility Name Jul 24, 2024 11:00 AM AMBULATORY - MEDICINE [facility] Sep 27, 2024 02:00 PM AMBULATORY - MEDICINE [facility] Oct 01, 2024 08:30 AM AMBULATORY - MEDICINE [facility] Nov 13, 2024 08:00 AM AMBULATORY - MEDICINE [facility] Active, Pending, and Scheduled Orders This section includes a listing of several types of active, pending, and scheduled orders, including clinic medications orders, diagnostic test orders, procedure orders and consult orders; where the start date of the order is 45 days before the date of the Encounter or 45 days after the date of theEncounter. The data comes from all [place] treatment facilities. Test Date/Time Test Type Test Details Facility Name Jul 17, 2024 12:09 PM Consult Order [facility] Cons Architect Manager's [facility] Jul 26, 2024 04:19 PM Consult Order [facility]-HEMATOLOGY Cons Architect Manager's [facility] Lab Results: +/- 30 days of the encounter This section includes the Chemistry and Hematology Lab Results on record with [place] for the patient. Radiology Reports and Pathology Reports are provided separately, in subsequent sections. Lab Results This section contains the Chemistry/Hematology Results that were resulted 30 days before or 30 daysafter the date of the Encounter. Date/Time Source Result Type Result - Unit Interpretation Reference Range Comment Jun 22, 2024 02:57 PM [facility] URINALYSIS Specimen Type: URINE Comment: If Glucose = >500 and Ketones are positive, please alert the Physician. Ordering Provider: JESSICA MCCURDY Report Released Date/Time: May 24, 2024 02:10 PM Reporting Lab: [facility] [address] [facility] [address] Performing Lab: [facility] [address] [facility] [address] UA COLOR Light-Yellow Yellow UA APPEARANCE Clear Clear UA GLUCOSE Normal mg/dL Negative UA KETONES NEGATIVE mg/dL Negative UA BLOOD NEGATIVE mg/dL Negative UA PROTEIN NEGATIVE mg/dL Negative UA NITRITE NEGATIVE mg/dL Negative UA BILIRUBIN NEGATIVE mg/dL Negative UA SPECIFIC GRAVITY 1.029 H 1.016-1.022 UA pH 5.5 5.0-9.0 UA UROBILINOGEN Normal mg/dL <2.0 UA LEUKOCYTE NEGATIVE Negative Jun 22, 2024 02:57 PM [facility] MICROALBUMIN CREATININE RATIO PANEL Spe cimen Type: URINE No comment entered. Ordering Provider: JESSICA MCCURDY Report Released Date/Time: May 24, 2024 02:10 PM Reporting Lab: [address] [address] Performing Lab: [address] [address] MICROALBUMIN/C REATININE RATIO 6.3 mg/g 0-29.9 MICROALBUMIN,Q UANTITATIVE 0.8 mg/dL RR UNAVAIL CREATININE URINE 127.87 mg/dL Jun 22, 2024 01:35 PM [facility] URIC ACID Specimen Type: SERUM No comment entered. Ordering Provider: JESSICA MCCURDY Report Released Date/Time: May 24, 2024 02:10 PM Reporting Lab: [address] [address] Performing Lab: [address] [address] URIC ACID 6.1 mg/dL 3.5-7.2 Jun 22, 2024 01:35 PM [facility] VITAMIN D (25-OH) Specimen Type: SERUM No comment entered. Ordering Provider: JESSICA MCCURDY Report Released Date/Time: May 24, 2024 02:10 PM Reporting Lab: [address] [address] Performing Lab: [address] [address] VITAMIN D (25-OH) 15 ng/mL L 20-50 Jun 22, 2024 01:35 PM [facility] CBC AND DIFF (AUTO) Specimen Type: BLOOD No comment entered. Ordering Provider: JESSICA MCCURDY Report Released Date/Time: May 24, 2024 02:10 PM Reporting Lab: [address] [address] Performing Lab: [address] [address] WBC 5.15 10*3/uL 4.50-11.00 RBC 5.35 10*6/uL [...] 10*3/uL 0.00-0.00 Jun 22, 2024 01:35 PM [facility] FERRITIN Specimen Type: SERUM No comment entered. Ordering Provider: JESSICA MCCURDY Report Released Date/Time: May 24, 2024 02:10 PM Reporting [facility]: [facility] [address] [address] Performing Lab: [facility] [address] [address] FERRITIN 304 ng/mL H 20-300 Jun 22, 2024 01:35 PM [facility] TSH Specimen Type: SERUM No comment entered. Ordering Provider: JESSICA MCCURDY Report Released Date/Time: May 24, 2024 02:10 PM Reporting Lab: [facility] [address] [address] Performing Lab: [address] [address] TSH 1.30 u[IU]/mL 0.35-5.00 Jun 22, 2024 01:35 PM [facility] [place] HEMOGLOBIN A1C PANEL Specimen Type: BLOOD Comment: [...] May 24, 2024 02:10 PM Reporting Lab: [facility] [address] [address] Performing Lab: [address] [address] HEMOGLOBIN A1C 4.4 4.0-5.6 Jun 22, 2024 01:35 PM [place] [place] PSA Specimen Type: SERUM No comment entered. Ordering Provider: JESSICA MCCURDY Report Released Date/Time: May 24, 2024 02:10 PM Reporting [facility]: [facility] [address] [address] Performing Lab: [facility] [address] [address] PSA 0.34 ng/mL 0.00-4.00 Jun 22, 2024 01:35 PM [facility] BASIC METABOLIC PANEL (fasting) Specime n Type: SERUM No comment entered. Ordering Provider: JESSICA MCCURDY Report Released Date/Time: May 24, 2024 02:10 PM Reporting Lab: [facility] [address] [address] Performing Lab: [facility] [address] [address] UREA NITROGEN 18 mg/dL 7-25 GLUCOSE 95 mg/dL 65-100 SODIUM 141 mmol/L 135-145 POTASSIUM 4.1 mmol/L 3.5-5.0 CHLORIDE 105 mmol/L 100-110 CO2 24 meq/L 20-30 CREATININE, Serum 0.77 mg/dL 0.50-1.40 eGFR(CKD-EPI 2020) >90 mL/min >60 Jun 22, 2024 01:35 PM [facility] LIVER FUNCTION Specimen Type: SERUM No comment entered. Ordering Provider: JESSICA MCCURDY Report Released Date/Time: May 24, 2024 02:10 PM Reporting Lab: [address] [address] Performing Lab: [address] [address] PROTEIN,TOTAL 7.8 g/dL 6.0-8.3 ALBUMIN 4.7 g/dL 3.5-5.0 ALKALINE PHOSPHATASE 81 U/L 40-150 AST 23 U/L 5-34 ALT 45 U/L BILIRUBIN, TOTAL 1.0 mg/dL 0.2-1.2 Jun 22, 2024 01:35 PM [facility] LIPID PANEL FASTING Specimen Type: SERUM No comment entered. Ordering Provider: JESSICA MCCURDY Report Released Date/Time: May 24, 2024 02:10 PM Reporting Lab: [address] [address] Performing Lab: [address] [address] CHOLESTEROL 264 mg/dL H TRIGLYCERIDE 353 mg/dL H 0-150 LDL calculated Reflex to dLD L mg/dL 0-129 CHOL/HDL 5.7 HDL CHOLESTEROL 46 mg/dL 40-60 LDL DIRECT 168 mg/dL H Jun 22, 2024 01:35 PM [facility] CALCIUM Specimen Type: SERUM No comment entered. Ordering Provider: JESSICA MCCURDY Report Released Date/Time: May 24, 2024 02:10 PM Reporting Lab: [address] [address] Performing Lab: [address] [address] CALCIUM 9.9 mg/dL 8.5-10.2 Vital Signs: All taken on the encounter date This section contains inpatient and outpatient Vital Signs collected on the date of the Encounter. Date/Time Temperature Pulse Blood Pressure Respiratory Rate SP02 Pain Height Weight Body Mass Index Source Jul 17, 2024 12:17 PM 97.9 97 111/73 19 98 207.2 33 [place] Social History: Smoking Status (Most current) and Tobacco Use (All prior to encounter date) This section includes the most current, and the historical, smoking and tobacco- related health factors from the [place] facility where the Encounter took place. Current Smoking Status This section includes the most current smoking, or tobacco-related health factor, from the [place] facility where the Encounter took place. Date/Time Current Smoking Status Comment Gabe price May 24, 2024 01:00 PM VA-TOBACCO NEVER USED [facility] [place] Radiology Reports: +/- 30 days of the [...] the Encounter. The data comes from all [place] treatment facilities. Date/Time Radiology Report Provider Source Jun 22, 2024 08:10 AM CHEST (2 VIEWS): JESSICABERRY Essie [id number] -[id number] M Ex Date: JUN 22, 2024@08:10 Req Phys: JESSICA MCCURDY Loc: CWM/SO/PACT 3 [facility] (Req'g Loc) Img Loc: [facility]BUILDING 1 Service: [facility] [place] [address] (Case [id number] COMPLETE) CHEST (2 VIEWS) (RAD Detailed) CPT:47814 Reason for Study: HTN Clinical History: baseline any megaly? Report Status: Verified Date Reported: JUN 22, 2024 Date Verified: JUN 22, 2024 Security Lead E-Sig: Report: CHEST (2 VIEWS) HISTORY: Hypertension, baseline COMPARISON: None TECHNIQUE: Images were obtained at the local [place], and then submitted to the National Teleradiology [...] process identified. READING PHYSICIAN: Anselmo Franco M.D. -[phone] 06/22/2024 9:20 EST [facility] National Teleradiology Program [phone] (For Medical Practitioner Use Only) Attention Patients / Veterans: If you have questions or concerns about these test results, please contact your ordering provider or primary care team. Primary Diagnostic Code: NO ALERT REQUIRED Primary Interpreting Staff: RADIOLOGY,OUTSIDE SERVICE, Staff Physician / RADIOLOGY,OUTSIDE SERVICE [place] [facility] Encounter Notes: All associated encounter notes This section contains the clinical notes associated to the Encounter. Date/Time Encounter Note(s) Provider Source Aug 18, 2024 08:10 PM ADDENDUM: LOCAL TITLE: Addendum STANDARD TITLE: ADDENDUM DATE OF NOTE: AUG 18, 2024@20:10:59 ENTRY DATE: AUG 18, 2024@20:11 AUTHOR: Nikolas JOSEPH COSIGNER: URGENCY: STATUS: COMPLETED #MRI LS 07/2024 Trace lower lumbar levocurvature Normal spinal alignment Discogenic degenerative changes L2-L3 and L1-L2 Mild central to left paramedian disc protrusion at L5-S1 with mild to moderate facet joint arthropathy without significant canal or neural foraminal stenosis Minor annular bulging and small left foraminal disc protrusion at L4-5 which contacts the exiting left L4 nerve root sleeve with mild left-sided foraminal narrowing Small left-sided extraforaminal foraminal disc protrusion at L3-4 without neural impingement Disc bulging and central radial annular fissure at L2-3 without significant spinal canal or neuroforaminal stenosis Small left and right paracentral disc protrusions at L1-L2 Could you please notify patient I reviewed his lower back MRI that showed mild to moderate degenerative changes. I will review findings in more detail with patient at initial visit with me in August. 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 ask director of clinical applications Medication Reconciliation: Outpatient: Has the patient been taking medications as documented in the EMLR? YES: The patient has been taking medications as documented in the EMLR. Essential Medication List for Review used to complete this medication reconciliation. INCLUDED IN THIS LIST: Alphabetical list of active outpatient prescriptions dispensed from this [place] (local) and dispensed from another [place] or [facility] facility (remote) as well as inpatient orders (local, pending and active), local clinic medications, locally documented non-VA medications, and local prescriptions that have or been discontinued in the past 90 days. - All changes in medications, including all non-VA/Herbal/OTC medications were entered into CPRS. Changes: nt - If there were any medications the patient should no longer take, they were discontinued. - The patient/caregiver was instructed to update this list, discard old lists, and take this list to the next appointment, whether with a VA or non-VA provider. /ernesto MCCURDY PA-C STAFF PHYSICIAN DIESEL LOCOMOTIVE CRANE OPERATOR Signed: 07/17/2024 12:16 07/17/2024 ADDENDUM STATUS: COMPLETED new pt please assign permanent pact team /ernesto MCCURDY PA-C STAFF PHYSICIAN DIESEL LOCOMOTIVE CRANE OPERATOR Signed: 07/17/2024 12:17 Receipt Acknowledged By: 07/23/2024 08:59 /holli/ MIKAL BRANCH NP NURSE PRACTITIONER 07/23/2024 ADDENDUM STATUS: COMPLETED Please reassign to [facility] PACT 5 and establish an appointment within the next 120-150 days. Thank you. /ernesto BRANCH NP NURSE PRACTITIONER Signed: 07/23/2024 09:00 Receipt Acknowledged By: 07/24/2024 09:27 /holli/ TENZIN HOOPER ADVANCED FITTER PLACER 08/03/2024 09:25 /holli/ JEROMY REYEZ VULCANIZER 07/26/2024 20:11 /holli/ DARREN JUAN COMPUTER PATTERNMAKER FITTER PLACER 07/24/2024 ADDENDUM STATUS: COMPLETED THIS DIRECTOR OF FIRST IMPRESSIONS HAD SPOKEN TO IN CLINIC TO SCHEDULE F2F APPT WITH CWM/SO/PACT 5 PROVIDER ON 09/17/2024 AT 11:30AM FOR NEW PATIENT 30 MINUTES ( IS A CWM/SO/PACT 3 TRANSFER). /holli/ TENZIN HOOPER ADVANCED FITTER PLACER Signed: 07/24/2024 09:34 08/22/2024 ADDENDUM STATUS: COMPLETED Message delivered via phone call. All questions answered. /holli/ BERRY SUNG RN REGISTERED NURSE Signed: 08/22/2024 16:10 KAREN JOSEPH [facility] Jul 23, 2024 08:59 AM ADDENDUM: LOCAL TITLE: Addendum STANDARD TITLE: ADDENDUM DATE OF NOTE: JUL 23, 2024@08:59:32 ENTRY DATE: JUL 23, 2024@08:59:33 AUTHOR: MIKAL BRANCH EXP COSIGNER: URGENCY: STATUS: COMPLETED Please reassign to [facility] PACT 5 and establish an appointment within the next 120-150 days. Thank you. 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 ask director of clinical applications Medication Reconciliation: Outpatient: Has the patient been [...] non-VA/Herbal/OTC medications were entered into CPRS. Changes: nt - If there were any medications the patient should no longer take, they were discontinued. - The patient/caregiver was instructed to update this list, discard old lists, and take this list to the next appointment, whether with a VA or non-VA provider. /holli/ JESSICA MCCURDY PA-C STAFF PHYSICIAN DIESEL LOCOMOTIVE CRANE OPERATOR Signed: 07/17/2024 12:16 07/17/2024 ADDENDUM STATUS: COMPLETED new pt please assign permanent pact team /holli/ JESSICA MCCURDY PA-C STAFF PHYSICIAN DIESEL LOCOMOTIVE CRANE OPERATOR Signed: 07/17/2024 12:17 Receipt Acknowledged By: 07/23/2024 08:59 /holli/ MIKAL BRANCH NP NURSE PRACTITIONER 07/24/2024 ADDENDUM STATUS: COMPLETED THIS DIRECTOR OF FIRST IMPRESSIONS HAD SPOKEN TO IN CLINIC TO SCHEDULE F2F APPT WITH CWM/SO/PACT 5 PROVIDER ON 09/17/2024 AT 11:30AM FOR NEW PATIENT 30 MINUTES ( IS A CWM/SO/PACT 3 TRANSFER). /holli/ TENZIN HOOPER ADVANCED FITTER PLACER Signed: 07/24/2024 09:34 MIKAL BRANCH Jul 17, 2024 12:16 PM ADDENDUM: LOCAL TITLE: Addendum STANDARD TITLE: ADDENDUM DATE OF NOTE: JUL 17, 2024@12:16:55 ENTRY DATE: JUL 17, 2024@12:16:56 AUTHOR: JESSICA MCCURDY EXP COSIGNER: URGENCY: STATUS: COMPLETED new pt please assign permanent pact team /holli/ JESSICA MCCURDY PA-C STAFF PHYSICIAN DIESEL LOCOMOTIVE CRANE OPERATOR Signed: 07/17/2024 12:17 Receipt Acknowledged By: 07/23/2024 08:59 /holli/ MIKAL BRANCH NP NURSE PRACTITIONER --- Original Document --- 07/17/24 [place] NOTE: S - here to f/u results mri R hip O - RADS: reviewed w/ pt A/P - 1) Minimal OA, R Side; 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 ask director of clinical applications Medication Reconciliation: Outpatient: Has the patient been taking medications as documented in the EMLR? YES: The patient has been taking medications as documented in the EMLR. Essential Medication List for Review used to complete this medication reconciliation. INCLUDED IN THIS LIST: Alphabetical list of active outpatient prescriptions dispensed from this [facility] (local) and dispensed from another [place] or [facility] facility (remote) as well as inpatient orders (local, pending and active), local clinic medications, locally documented non-VA medications, and local prescriptions that have or been discontinued in the past 90 days. - All changes in medications, including all non-VA/Herbal/OTC medications were entered into CPRS. Changes: nt - If there were any medications the patient should no longer take, they were discontinued. - The patient/caregiver was instructed to update this list, discard old lists, and take this list to the next appointment, whether with a VA or non-VA provider. 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 ask director of clinical applications Medication Reconciliation: Outpatient: Has the patient been taking medications as documented in the EMLR? YES: The patient has been taking medications as documented in the EMLR. Essential Medication List for Review used to complete this medication reconciliation. INCLUDED IN THIS LIST: Alphabetical list of active outpatient prescriptions dispensed from this [place] (local) and dispensed from another [facility] or [facility] facility (remote) as well as inpatient orders (local, pending and active), local clinic medications, locally documented non-VA medications, and local prescriptions that have or been discontinued in the past 90 days. - All changes in medications, including all non-VA/Herbal/OTC medications were entered into CPRS. Changes: nt - If there were any medications the patient should no longer take, they were discontinued. - The patient/caregiver was instructed to update this list, discard old lists, and take this list to the next appointment, whether with a VA or non-VA provider. /holli/ JESSICA MCCURDY PA-C STAFF PHYSICIAN DIESEL LOCOMOTIVE CRANE OPERATOR Signed: 07/17/2024 12:16 07/17/2024 ADDENDUM STATUS: COMPLETED new pt please assign permanent pact team /holli/ JESSICA MCCURDY PA-C STAFF PHYSICIAN DIESEL LOCOMOTIVE CRANE OPERATOR Signed: 07/17/2024 12:17 Receipt Acknowledged By: 07/23/2024 08:59 /holli/ MIKAL BRANCH NP NURSE PRACTITIONER 07/23/2024 ADDENDUM STATUS: COMPLETED Please reassign to [facility] PACT 5 and establish an appointment within the next 120-150 days. Thank you. /holli/ MIKAL BRANCH NP NURSE PRACTITIONER Signed: 07/23/2024 09:00 Receipt Acknowledged By: 07/24/2024 09:27 /holli/ TENZIN HOOPER ADVANCED FITTER PLACER 08/03/2024 09:25 /holli/ JEROMY REYEZ VULCANIZER 07/26/2024 20:11 /holli/ DARREN JUAN COMPUTER PATTERNMAKER FITTER PLACER 07/24/2024 ADDENDUM STATUS: COMPLETED THIS DIRECTOR OF FIRST IMPRESSIONS HAD SPOKEN TO IN CLINIC TO SCHEDULE F2F APPT WITH CWM/SO/PACT 5 PROVIDER ON 09/17/2024 AT 11:30AM FOR NEW PATIENT 30 MINUTES ( IS A CWM/SO/PACT 3 TRANSFER). /holli/ TENZIN HOOPER ADVANCED FITTER PLACER Signed: 07/24/2024 09:34 08/18/2024 ADDENDUM STATUS: COMPLETED #MRI LS 07/2024 Trace lower lumbar levocurvature Normal spinal alignment Discogenic degenerative changes L2-L3 and L1-L2 Mild central to left paramedian disc protrusion at L5-S1 with mild to moderate facet joint arthropathy without significant canal or neural foraminal stenosis Minor annular bulging and small left foraminal disc protrusion at L4-5 which contacts the exiting left L4 nerve root sleeve with mild left-sided foraminal narrowing Small left-sided extraforaminal foraminal disc protrusion at L3-4 without neural impingement Disc bulging and central radial annular fissure at L2-3 without significant spinal canal or neuroforaminal stenosis Small left and right paracentral disc protrusions at L1-L2 Could you please notify patient I reviewed his lower back MRI that showed mild to moderate degenerative changes. I will review findings in more detail with patient at initial visit with me in August. thx /holli/ ELMER JOSEPH MD PHYSICIAN Signed: 08/18/2024 20:43 Receipt Acknowledged By: 08/22/2024 16:10 /holli/ BERRY SUNG RN REGISTERED NURSE 08/22/2024 ADDENDUM STATUS: COMPLETED Message delivered via phone call. All questions answered. /holli/ BERRY SUNG RN REGISTERED NURSE Signed: 08/22/2024 16:10 JESSICA MCCURDY
--- OUTSIDE RECORDS SUMMARY | 2024-09-27 09:40 | XMS_ITS | Data Portability ---
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 Plan of Treatment Reminders Order Date Submit Date Provider Last Modified By Organization Details Last Modified Time Details Appointments None recorded. Lab None recorded. Referral None recorded. Procedures None recorded. Surgeries None recorded. Imaging None recorded. Medication Orders Bactrim DS 800 mg-160 mg tablet 2022 023 [id number], [address] [place], [address], 11:29:17 ibuprofen 600 mg tablet 2022 023 [id number], [address] [place], [address], 11:29:18 Patient TargetsNo targets recorded. Patient Instructions Encounter Date Encounter Id Patient Instructions Last Modified By Organization Details Last Modified Time 10/17/2022 [id number] cellulitis: care instructions [email or web address] Not available 10/17/2022 11:29:15 Apply a warm compress to the affected area for 15-20 minutes at a time up to 4 times a day. [email or web address] Not available 10/17/2022 10:33:10 Reason for Referral [...] Name and Address Organization Details Recorded Time [id number] Substance with morphinan structure and opioid receptor agonist mechanism of action (substanc e) medicatio n dizziness vomiting Not available Not available Not available 10/17/2022 [id number] SNOMED [facility] [...] Updated DateTime 3 170.18 cm 32.1 kg/m2 12456.4 4 g 99.1 [degF] 98 % 98 % 97 /min 16 /min 141 mm[Hg] 97 mm[Hg] TEMO CHOW PA - [facility] 10:44:31 Social History Question Answer Notes LastModified by Organizat ion Details LastModified Time Tobacco Smoking Status Never Smoker [facility] [place] - [facility] 10/17/2022 10:42:03 What Is Your Level Of Alcohol Consumption? Occasional Information not available 10/17/2022 Which Illicit Or Recreational Drugs Have You Used? Marijuana Occas [email or web address] Information not available 10/17/2022 Do You Use Any Illicit Or Recreational Drugs? Yes [email or web address] Information not available 10/17/2022 Have You Recently Traveled Abroad? No [email or web address] Information not available 10/17/2022 Do You Or Have You Ever Used Any Other Forms Of Tobacco Or Nicotine? No Information not available 10/17/2022 Sex: Unknown Functional Status None recorded. Mental Status None recorded. Family History Relationship Description Onset Age of this Age Resolved Age Notes LastModified by Organization Details LastModified Time Father Diabetes mellitus [email or web address] Not available 2022 10:40:44 Father Myocardial infarction Not available 10/17 10:41:03 Paternal Grandfather Myocardial infarction Not available 10/17 10:40:59 Medical History No medical history recorded. Past Encounters Encounter ID Performer Location Encounter Start Date Encounter Closed Date Diagnosis/Indication Diagnosis SNOMED-CT Code Diagnosis ICD10 Code Diagnosis Note [id number] Chris DO [facility] [address] [address] 10/17/2022 09:43:03 10/17/2022 11:36:54 Cellulitis 957121581 L03.90 no abscess noterecomm end Po ABxsitz bathsalter nating tylenol/ib uReviewed with patient potential adverse side effects of the medication .Take your antibiotic with food. Eat a yogurt daily or take a probiotic while you are taking the antibiotic .Patient advised to follow up as needed for worsening symptoms or no improvemen t. Health Concerns Section Related Observation LastModified by Organization Detai ls LastModified Time None Recorded Concern Status LastModified by Organization Details LastModified Time None Recorded Advance Directives Directive None Recorded Payers Encounter Date Sequence Insurance Name Policy Number Policy [place] Covered Member ID [place] Member ID Guarantor Name 10/17/[address] [facility] [id number] Ceferino Ferro [id number] Ceferino Ferro Notes Date Note Type Note Provider Name and Address Organization Details Recorded Time 10/17/2022 text/html AbscessReported bypatient.Notes:47 yo malec/o abscess in the middle of buttocks+ pain+ drainageno bleeding+ subjective fever+ chillsno n/vno otc meds He had a colonoscopy a few years ago and has one booked for next month Chris Gant, DO [address] [place], [address], [place] - [facility] 10/17/2022 11:29:46
--- OUTSIDE RECORDS SUMMARY | 2024-09-27 09:40 | XMS_ITS | Continuity of Care Document ---
Author Name [facility] Organization [facility] Care Team Providers Care Drafter Seismograph Name Role Phone [facility] Unavailable Unavailable Problems Combined list of problems [...] JESSICA MCCURDY Comment[facility] Entered By: JESSICA MCCURDY Comment: Is HereditaryOct 2023 Entered By: JESSICA MCCURDY Comment: Liver Bx approx 2003: Little Bit of CirrhosisOct 2023 Entered By: JESSICA MCCURDY Comment: Does Serial US's of ABD as Directed Outside [facility] 2023 Entered By: JESSICA MCCURDY Comment: Phlebotomies Happens at Two-Month Intervals; Needs Whole Day Off Work (makes him tired) [place] Hypercholesterolemia Active Condition May 24, 2024 Entered By: JESSICA MCCURDY Comment: Not on Statin as of MAY 17 [place] Hypertension Active Condition May 24, 2024 Entered By: JESSICA MCCURDY Comment: Heretofore Undiagnosed and Untreated HTN as of MAY 17Oct 2023 Entered By: JESSICA MCCURDY Comment: KARL ContributoryOc t 2023 Entered By: JESSICA MCCURDY Comment: Request EKG and CXR in MAY 17 as Baselines for Eval of HTNDec 2023 Entered By: JESSICA MCCURDY Comment: CXR, JUN 17: No Acute Pulmo Processes or Megaly [place] Myofascial low back pain Active Condition May 24, 2024 Entered By: JESSICA MCCURDY Comment: Non-Radicular LBP; Plain Films [facility] Unremarkable;J an 2024 Entered By: JESSICA MCCURDY Comment: MRI, L-Spine [facility] AUG 18: Discogenic Changes L2-L3 ( L1-L2;Aug 24, 2024 Entered By: JESSICA MCCURDY Comment: Mild Central Left Disc Protrusion L5-S1 w/ Moderate Jt Arthropathy;Ja n 2024 Entered By: JESSICA MCCURDY Comment: LEFT Foraminal Disc Protrusion L4-L5 Which Abuts L4 Nerve Root;Aug 24, 2024 Entered By: JESSICA MCCURDY Comment: LEFt Sided Extra-Foramina l Disc Protrusion L3-L4 w/o Neural Impingement;Ja n 2024 Entered By: JESSICA MCCURDY Comment: Disc Bulging and Central Radial Annular Fissure L2-L3 w/o Signif Spin Stenosis;Aug 24, 2024 Entered By: JESSICA MCCURDY Comment: Small LEFT & RIGHT Para-Central Disc Protrusion L1-L2Aug 24, 2024 Entered By: JESSICA MCCURDY Comment: refer Pain [facility] in AUG 18 [place] Obstructive sleep apnea syndrome Active Condition May 24, 2024 Entered By: JESSICA MCCURDY Comment: Has CPAP [place] Pain in right hip joint Active Condition May 24, 2024 Entered By: JESSICA MCCURDY Comment: [facility] Neg for Degen ArthritisOct 2023 Entered By: JESSICA MCCURDY Comment: Soft Tissue is Likley Etio of RHip PainDec 2023 Entered By: JESSICA MCCURDY Comment: MRI, R Hip JUL 17: Mild OA; No AVN; Mario-Superio r Labral Tear;Jul 17, 2024 Entered By: JESSICA MCCURDY Comment: Mild G. Max and Minmus Tendinopathy; Mild Ilio-Psoas TendinosisDec 2023 Entered By: JESSICA MCCURDY Comment: Poss Quad Femoris Strain [place] Rash Active Condition May 24 Entered By: JESSICA MCCURDY Comment: Lateral Aspect, Orbital Bone R Eye; Pre-Malig?? pending DERM Eval SEP25 [place] Screening for malignant neoplasm of colon done Active Condition May 24, 2024 Entered By: JESSICA MCCURDY Comment: Last Survil Colonoscopy 2022; +Polyposis; no CRCOct 2023 Entered By: JESSICA MCCURDY Comment: repeat 2023 Entered By: JESSICA MCCURDY Comment: Initial Diagnost Colonoscopy Done Due to Hematochezia [place] Diagnosis: ICD-10-CM I10 Essential (primary) hypertension Active Diagnosis [facility] Diagnosis: ICD-10-CM M25.551 Pain in right hip Active Diagnosis [place] Diagnosis: ICD-10-CM Z13.6 Encounter for screening for cardiovascular disorders Active Diagnosis [facility] Medications Combined list of outpatient medications from Department of Defense and Veterans Affairs facilities.Medications provided include 1) outpatient medications from the last 15 months, and 2) patient-reported medications. Medication Details Route Status Patient Instructions Prescription Expires Prescription Number Last Dispense Date Ordering Provider Order Date Order Qty Source CHOLECALCIF AIDEE 50MCG (2,000UNIT) TAB TAKE ONE TABLET BY MOUTH ONCE DAILY FOR VITAMIN SUPPLEME NTATION ORAL ACTIVE 07/27/2025 [id number] PK MCCURDY 2024 100 [place] LISINOPRIL 10MG TAB TAKE ONE TABLET BY MOUTH ONCE DAILY FOR HIGH BLOOD PRESSURE TO CONTROL BLOOD PRESSURE ORAL ACTIVE 05/25/2025 [id number] PK MCCURDY 2023 60 [place] ROSUVASTATI N CA 40MG TAB TAKE ONE-HALF TABLET BY MOUTH ONCE DAILY FOR HIGH CHOLESTE ROL ORAL ACTIVE 07/27/2025 [id number] PK MCCURDY 2024 45 [place] Allergies, Adverse Reactions, Alerts Combined list of allergies from Department of Defense and Veterans Affairs facilities. It does not include entries that were removed or entered in error. Substance Category Reaction Severity Reaction type Status Date Reported Comments Source TRAMADOL Propensity to adverse reactions to drug (finding) Itching MODERATE active 4 [facility] Immunizations Combined list of available immunizations from the Department of Defense and Veterans Affairs facilities. Immunization Series Date Given Administered By Site Reaction Lot Number CVX Code Drug Fibrous Plasterer Status Comments Source TD(ADULT) UNSPECIFIED FORMULATION 2015 139 complet ed [facility] TDAP 2015 115 complet ed record obtained from [facility] 07/30/2020 office visit note sent to scanning [facility] [place] [facility] Results Combined list of recent chemistry, hematology [...] May 24, 2024 02:10 PM Reporting Lab: [address] [address] Performing Lab: [address] [address] [place] URINALYS IS APPEARANCE OF URINE Clear 06/22 Specimen Type: URINE Comment: If Glucose = >500 and Ketones are positive, please alert the Physician. Ordering Provider: JESSICA MCCURDY Report Released Date/Time: May 24, 2024 02:10 PM Reporting Lab: [address] [address] Performing Lab: [address] [address] [place] URINALYS IS GLUCOSE [MASS/VOLU ME] IN URINE Normalmg /dL 06/22 Specimen Type: URINE Comment: If Glucose = >500 and Ketones are positive, please alert the Physician. Ordering Provider: JESSICA MCCURDY Report Released Date/Time: May 24, 2024 02:10 PM Reporting Lab: [address] [address] Performing Lab: [address] [address] [place] URINALYS IS KETONES [MASS/VOLU ME] IN URINE BY TEST STRIP NEGATIVE mg/dL 06/22 Specimen Type: URINE Comment: If Glucose = >500 and Ketones are positive, please alert the Physician. Ordering Provider: JESSICA MCCURDY Report Released Date/Time: May 24, 2024 02:10 PM Reporting Lab: [address] [address] Performing Lab: [address] [address] [place] URINALYS IS ERYTHROCYT ES [PRESENCE] IN URINE SEDIMENT BY LIGHT MICROSCOPY NEGATIVE mg/dL 06/22 Specimen Type: URINE Comment: If Glucose = >500 and Ketones are positive, please alert the Physician. Ordering Provider: JESSICA MCCURDY Report Released Date/Time: May 24, 2024 02:10 PM Reporting Lab: [address] [address] Performing Lab: [address] [address] [place] URINALYS IS PROTEIN [MASS/VOLU ME] IN URINE BY TEST STRIP NEGATIVE mg/dL 06/22 Specimen Type: URINE Comment: If Glucose = >500 and Ketones are positive, please alert the Physician. Ordering Provider: JESSICA MCCURDY Report Released Date/Time: May 24, 2024 02:10 PM Reporting Lab: [address] [address] Performing Lab: [address] [address] [place] URINALYS IS NITRITE [PRESENCE] IN URINE NEGATIVE mg/dL 06/22 Specimen Type: URINE Comment: If Glucose = >500 and Ketones are positive, please alert the Physician. Ordering Provider: JESSICA MCCURDY Report Released Date/Time: May 24, 2024 02:10 PM Reporting Lab: [address] [address] Performing Lab: [address] [address] [place] URINALYS IS BILIRUBIN. TOTAL [PRESENCE] IN URINE NEGATIVE mg/dL 06/22 Specimen Type: URINE Comment: If Glucose = >500 and Ketones are positive, please alert the Physician. Ordering Provider: JESSICA MCCURDY Report Released Date/Time: May 24, 2024 02:10 PM Reporting Lab: [address] [address] Performing Lab: [address] [address] [place] URINALYS IS SPECIFIC GRAVITY OF URINE BY REFRACTOME TRY 1.029 1.016 - 1.022 06/22 H Specimen Type: URINE Comment: If Glucose = >500 and Ketones are positive, please alert the Physician. Ordering Provider: JESSICA MCCURDY Report Released Date/Time: May 24, 2024 02:10 PM Reporting Lab: [address] [address] Performing Lab: [address] [address] [place] URINAL[place] IS PH OF URINE BY TEST STRIP 5.5 5.0 - 9.0 06/22 Specimen Type: URINE Comment: If Glucose = >500 and Ketones are positive, please alert the Physician. Ordering Provider: JESSICA MCCURDY Report Released Date/Time: May 24, 2024 02:10 PM Reporting Lab: [address] [address] Performing Lab: [address] [address] [place] URINALYS IS UROBILINOG EN [MASS/VOLU ME] IN URINE BY TEST STRIP Normalmg /dL <2.0 - 2.0 06/22 Specimen Type: URINE Comment: If Glucose = >500 and Ketones are positive, please alert the Physician. Ordering Provider: JESSICA MCCURDY Report Released Date/Time: May 24, 2024 02:10 PM Reporting Lab: [address] [address] Performing Lab: [address] [address] [place] URINALYS IS LEUKOCYTE ESTERASE [PRESENCE] IN URINE BY TEST STRIP NEGATIVE 06/22 Specimen Type: URINE Comment: If Glucose = >500 and Ketones are positive, please alert the Physician. Ordering Provider: JESSICA MCCURDY Report Released Date/Time: May 24, 2024 02:10 PM Reporting Lab: [address] [address] Performing Lab: [address] [address] [place] MICROALB UMIN CREATINI NE RATIO PANEL MICROALBUM IN/CREATIN INE [MASS RATIO] IN URINE 6.3 mg/g 0 - 29.9 06/22 Specimen Type: URINE No comment entered. Ordering Provider: JESSICA MCCURDY Report Released Date/Time: May 24, 2024 02:10 PM Reporting Lab: [facility] [address] [address] Performing Lab: [facility] [address] [address] [place] MICROALB UMIN CREATINI NE RATIO PANEL MICROALBUM IN [MASS/VOLU ME] IN URINE 0.8 mg/dL 06/22 Specimen Type: URINE No comment entered. Ordering Provider: JESSICA MCCURDY Report Released Date/Time: May 24, 2024 02:10 PM Reporting Lab: [address] [address] Performing Lab: [facility] [address] [address] [place] MICROALB UMIN CREATINI NE RATIO PANEL CREATININE [MASS/VOLU ME] IN URINE 127.87 mg/dL 06/22 Specimen Type: URINE No comment entered. Ordering Provider: JESSICA MCCURDY Report Released Date/Time: May 24, 2024 02:10 PM Reporting Lab: [facility] [address] [address] Performing Lab: [facility] [address] [address] [place] URIC ACID URATE [MASS/VOLU ME] IN SERUM OR PLASMA 6.1 mg/dL 3.5 - 7.2 06/22 Specimen Type: SERUM No comment entered. Ordering Provider: JESSICA MCCURDY Report Released Date/Time: May 24, 2024 02:10 PM Reporting Lab: [address] [address] Performing Lab: [address] [address] [place] VITAMIN D (25-OH) 25-HYDROXY VITAMIN D3 [MASS/VOLU ME] IN SERUM OR PLASMA 15 ng/mL 20 - 50 06/22 L Specimen Type: SERUM No comment entered. Ordering Provider: JESSICA MCCURDY Report Released Date/Time: May 24, 2024 02:10 PM Reporting Lab: [address] [address] Performing Lab: [address] [address] [place] CBC AND DIFF (AUTO) LEUKOCYTES [#/VOLUME] IN BLOOD BY AUTOMATED COUNT 5.15 10*3/uL 4.50 - 11.00 06/22 Specimen Type: BLOOD No comment entered. Ordering Provider: JESSICA MCCURDY Report Released Date/Time: May 24, 2024 02:10 PM Reporting Lab: [address] [address] Performing Lab: [address] [address] [place] CBC AND DIFF (AUTO) ERYTHROCYT ES [#/VOLUME] IN BLOOD BY AUTOMATED COUNT 5.35 10*6/uL 4.23 - 5.66 06/22 Specimen Type: BLOOD No comment entered. Ordering Provider: JESSICA MCCURDY Report Released Date/Time: May 24, 2024 02:10 PM Reporting Lab: [address] [address] Performing Lab: [address] [address] [place] CBC AND DIFF (AUTO) HEMOGLOBIN [MASS/VOLU ME] IN BLOOD 16.9 g/dL 12.8 - 17 06/22 Specimen Type: BLOOD No comment entered. Ordering Provider: JESSICA MCCURDY Report Released Date/Time: May 24, 2024 02:10 PM Reporting Lab: [address] [address] Performing Lab: [address] [address] [place] CBC AND DIFF (AUTO) HEMATOCRIT [VOLUME FRACTION] OF BLOOD BY AUTOMATED COUNT 46.3 39.2 - 50.4 06/22 Specimen Type: BLOOD No comment entered. Ordering Provider: JESSICA MCCURDY Report Released Date/Time: May 24, 2024 02:10 PM Reporting Lab: [facility] [address] [address] Performing Lab: [facility] [address] [address] [place] CBC AND DIFF (AUTO) MCV [ENTITIC VOLUME] BY AUTOMATED COUNT 86.5 fL 82 - 99 06/22 Specimen Type: BLOOD No comment entered. Ordering Provider: JESSICA MCCURDY Report Released Date/Time: May 24, 2024 02:10 PM Reporting Lab: [address] [address] Performing Lab: [address] [address] [place] CBC AND DIFF (AUTO) MCHC [MASS/VOLU ME] BY AUTOMATED COUNT 36.5 g/dL 30.8 - 35.1 06/22 H Specimen Type: BLOOD No comment entered. Ordering Provider: JESSICA MCCURDY Report Released Date/Time: May 24, 2024 02:10 PM Reporting Lab: [address] [address] Performing Lab: [address] [address] [place] CBC AND DIFF (AUTO) PLATELETS [#/VOLUME] IN BLOOD BY AUTOMATED COUNT 261 10*3/uL 140 - 360 06/22 Specimen Type: BLOOD No comment entered. Ordering Provider: JESSICA MCCURDY Report Released Date/Time: May 24, 2024 02:10 PM Reporting Lab: [facility] [address] [address] Performing Lab: [address] [address] [place] CBC AND DIFF (AUTO) ERYTHROCYT E DISTRIBUTI ON WIDTH [RATIO] BY AUTOMATED COUNT 12.0 12.0 - 16.0 06/22 Specimen Type: BLOOD No comment entered. Ordering Provider: JESSICA MCCURDY Report Released Date/Time: May 24, 2024 02:10 PM Reporting Lab: [facility] [address] [address] Performing Lab: [facility]TRN [address] [address] [place] CBC AND DIFF (AUTO) MONOCYTES [#/VOLUME] IN BLOOD BY AUTOMATED COUNT 0.33 10*3/uL 0.30 - 1.10 06/22 Specimen Type: BLOOD No comment entered. Ordering Provider: JESSICA MCCURDY Report Released Date/Time: May 24, 2024 02:10 PM Reporting Lab: [facility] [address] [address] Performing Lab: [facility] [address] [address] [place] CBC AND DIFF (AUTO) MCH [ENTITIC MASS] BY AUTOMATED COUNT 31.6 pg 26.2 - 32.6 06/22 Specimen Type: BLOOD No comment entered. Ordering Provider: JESSICA MCCURDY Report Released Date/Time: May 24, 2024 02:10 PM Reporting Lab: [facility] [address] [address] Performing Lab: [facility] [address] [address] [place] CBC AND DIFF (AUTO) NEUTROPHIL S/100 LEUKOCYTES IN BLOOD BY AUTOMATED COUNT 62.5 43.7 - 75.8 06/22 Specimen Type: BLOOD No comment entered. Ordering Provider: JESSICA MCCURDY Report Released Date/Time: May 24, 2024 02:10 PM Reporting Lab: [facility]ENTERTRN [address] [address] Performing Lab: [facility] [address] [address] [place] CBC AND DIFF (AUTO) LYMPHOCYTE S/100 LEUKOCYTES IN BLOOD BY AUTOMATED COUNT 27.0 14.0 - 42.3 06/22 Specimen Type: BLOOD No comment entered. Ordering Provider: JESSICA MCCURDY Report Released Date/Time: May 24, 2024 02:10 PM Reporting Lab: [place] [facility] [address] [address] Performing Lab: [place] [facility] [address] [address] [place] CBC AND DIFF (AUTO) MONOCYTES/ 100 LEUKOCYTES IN BLOOD BY AUTOMATED COUNT 6.4 5.1 - 13.7 06/22 Specimen Type: BLOOD No comment entered. Ordering Provider: JESSICA MCCURDY Report Released Date/Time: May 24, 2024 02:10 PM Reporting Lab: [place] [facility] [address] [address] Performing Lab: [place] [facility] TRN [facility] [address] [address] [place] CBC AND DIFF (AUTO) EOSINOPHIL S/100 LEUKOCYTES IN BLOOD BY AUTOMATED COUNT 2.5 0.4 - 6.8 06/22 Specimen Type: BLOOD No comment entered. Ordering Provider: JESSICA MCCURDY Report Released Date/Time: May 24, 2024 02:10 PM Reporting Lab: [place] [facility] [address] [address] Performing Lab: [place] [facility] [address] [address] [place] CBC AND DIFF (AUTO) BASOPHILS/ 100 LEUKOCYTES IN BLOOD BY AUTOMATED COUNT 1.2 0.1 - 2.0 06/22 Specimen Type: BLOOD No comment entered. Ordering Provider: JESSICA MCCURDY Report Released Date/Time: May 24, 2024 02:10 PM Reporting Lab: [place] [facility] [address] [address] Performing Lab: [place] [facility] [address] [address] [place] CBC AND DIFF (AUTO) NEUTROPHIL S [#/VOLUME] IN BLOOD BY AUTOMATED COUNT 3.22 10*3/uL 2.20 - 7.60 06/22 Specimen Type: BLOOD No comment entered. Ordering Provider: JESSICA MCCURDY Report Released Date/Time: May 24, 2024 02:10 PM Reporting Lab: [facility]ENTERTRN [facility] [address] [address] Performing Lab: [place] [facility] [address] [address] [place] CBC AND DIFF (AUTO) LYMPHOCYTE S [#/VOLUME] IN BLOOD BY AUTOMATED COUNT 1.39 10*3/uL 1.00 - 3.20 06/22 Specimen Type: BLOOD No comment entered. Ordering Provider: JESSICA MCCURDY Report Released Date/Time: May 24, 2024 02:10 PM Reporting Lab: [facility]ENTERTRN [address] [address] Performing Lab: [facility]N [address] [address] [place] CBC AND DIFF (AUTO) EOSINOPHIL S [#/VOLUME] IN BLOOD BY AUTOMATED COUNT 0.13 10*3/uL 0.03 - 0.44 06/22 Specimen Type: BLOOD No comment entered. Ordering Provider: JESSICA MCCURDY Report Released Date/Time: May 24, 2024 02:10 PM Reporting Lab: [facility]ENTERTRN [facility] [address] [address] Performing Lab: [facility]RL TRN [facility] [address] [address] [place] CBC AND DIFF (AUTO) BASOPHILS [#/VOLUME] IN BLOOD BY AUTOMATED COUNT 0.06 10*3/uL 0.01 - 0.13 06/22 Specimen Type: BLOOD No comment entered. Ordering Provider: JESSICA MCCURDY Report Released Date/Time: May 24, 2024 02:10 PM Reporting Lab: [facility]ENTERTRN [facility] [address] [address] Performing Lab: [facility]ITALRL TRN [facility]USE[address] [address] [place] CBC AND DIFF (AUTO) IMMATURE GRANULOCYT ES/100 LEUKOCYTES IN BLOOD BY AUTOMATED COUNT 0.4 0.0 - 0.7 06/22 Specimen Type: BLOOD No comment entered. Ordering Provider: JESSICA MCCURDY Report Released Date/Time: May 24, 2024 02:10 PM Reporting Lab: [address] [address] Performing Lab: [address] [address] [place] CBC AND DIFF (AUTO) IMMATURE GRANULOCYT ES [#/VOLUME] IN BLOOD 0.02 10*3/uL 0.00 - 0.06 06/22 Specimen Type: BLOOD No comment entered. Ordering Provider: JESSICA MCCURDY Report Released Date/Time: May 24, 2024 02:10 PM Reporting Lab: [address] [address] Performing Lab: [address] [address] [place] CBC AND DIFF (AUTO) NRBC % 0.0 0.0 - 0.0 06/22 Specimen Type: BLOOD No comment entered. Ordering Provider: JESSICA MCCURDY Report Released Date/Time: May 24, 2024 02:10 PM Reporting Lab: [address] [address] Performing Lab: [address] [address] [place] CBC AND DIFF (AUTO) NRBC, ABS 0.00 10*3/uL 0.00 - 0.00 06/22 Specimen Type: BLOOD No comment entered. Ordering Provider: JESSICA MCCURDY Report Released Date/Time: May 24, 2024 02:10 PM Reporting Lab: [address] [address] Performing Lab: [address] [address] [place] FERRITIN FERRITIN [MASS/VOLU ME] IN SERUM OR PLASMA 304 ng/mL 20 - 300 06/22 H Specimen Type: SERUM No comment entered. Ordering Provider: JESSICA MCCURDY Report Released Date/Time: May 24, 2024 02:10 PM Reporting Lab: [facility] [place] [address] [address] Performing Lab: [facility]ITALR[facility]OSPITALN [facility]USE[address] [address] [place] TSH THYROTROPI N [UNITS/VOL UME] IN SERUM OR PLASMA 1.30 u[IU]/mL 0.35 - 5.00 06/22 Specimen Type: SERUM No comment entered. Ordering Provider: JESSICA MCCURDY Report Released Date/Time: May 24, 2024 02:10 PM Reporting Lab: [place] [facility] [place] [address] [address] Performing Lab: [facility] [address] [address] [place] HEMOGLOB IN A1C PANEL HEMOGLOBIN [...] May 24, 2024 02:10 PM Reporting Lab: [facility]RGADSD[facility] CENTERTRN [facility] [address] Performing Lab: [facility]ITALRGADSD[facility] CENTERTRN [address] [address] [place] PSA PROSTATE SPECIFIC AG [MASS/VOLU ME] IN SERUM OR PLASMA 0.34 ng/mL 0.00 - 4.00 06/22 Specimen Type: SERUM No comment entered. Ordering Provider: JESSICA MCCURDY Report Released Date/Time: May 24, 2024 02:10 PM Reporting Lab: [facility] [address] [address] Performing Lab: [facility] [address] [address] [place] BASIC METABOLI C PANEL (fasting ) UREA NITROGEN [MASS/VOLU ME] IN SERUM OR PLASMA 18 mg/dL 7 - 25 06/22 Specimen Type: SERUM No comment entered. Ordering Provider: JESSICA MCCURDY Report Released Date/Time: May 24, 2024 02:10 PM Reporting Lab: [facility] [address] [address] Performing Lab: [facility] [address] [address] [place] BASIC METABOLI C PANEL (fasting ) GLUCOSE [MASS/VOLU ME] IN SERUM OR PLASMA 95 mg/dL 65 - 100 06/22 Specimen Type: SERUM No comment entered. Ordering Provider: JESSICA MCCURDY Report Released Date/Time: May 24, 2024 02:10 PM Reporting Lab: [address] [address] Performing Lab: [facility] [address] [address] [place] BASIC METABOLI C PANEL (fasting ) SODIUM [MOLES/VOL UME] IN SERUM OR PLASMA 141 mmol/L 135 - 145 06/22 Specimen Type: SERUM No comment entered. Ordering Provider: JESSICA MCCURDY Report Released Date/Time: May 24, 2024 02:10 PM Reporting Lab: [facility] [address] [address] Performing Lab: [facility] [address] [address] [place] [employer] BASIC METABOLI C PANEL (fasting ) POTASSIUM [MOLES/VOL UME] IN SERUM OR PLASMA 4.1 mmol/L 3.5 - 5.0 06/22 Specimen Type: SERUM No comment entered. Ordering Provider: JESSICA MCCURDY Report Released Date/Time: May 24, 2024 02:10 PM Reporting Lab: [facility] [address] [facility] [address] Performing Lab: [facility] [address] [address] [employer] LD BASIC METABOLI C PANEL (fasting ) CHLORIDE [MOLES/VOL UME] IN SERUM OR PLASMA 105 mmol/L 100 - 110 06/22 Specimen Type: SERUM No comment entered. Ordering Provider: JESSICA MCCURDY Report Released Date/Time: May 24, 2024 02:10 PM Reporting Lab: [address] [address] Performing Lab: [address] [address] [employer] LD BASIC METABOLI C PANEL (fasting ) CARBON DIOXIDE, TOTAL [MOLES/VOL UME] IN SERUM OR PLASMA 24 meq/L 20 - 30 06/22 Specimen Type: SERUM No comment entered. Ordering Provider: JESSICA MCCURDY Report Released Date/Time: May 24, 2024 02:10 PM Reporting Lab: [address] [address] Performing Lab: [address] [address] [place] [employer] BASIC METABOLI C PANEL (fasting ) CREATININE [MASS/VOLU ME] IN SERUM OR PLASMA 0.77 mg/dL 0.50 - 1.40 06/22 Specimen Type: SERUM No comment entered. Ordering Provider: JESISCA MCCURDY Report Released Date/Time: May 24, 2024 02:10 PM Reporting Lab: [address] [address] Performing Lab: [address] [address] [place] [employer] BASIC METABOLI C PANEL (fasting ) GLOMERULAR FILTRATION RATE/1.73 SQ M.PREDICTE D [VOLUME RATE/AREA] IN SERUM, PLASMA OR BLOOD BY CREATININE -BASED FORMULA (CKD-EPI 2020) >90mL/mi n 60 06/22 Specimen Type: SERUM No comment entered. Ordering Provider: EJSSICA MCCURDY Report Released Date/Time: May 24, 2024 02:10 PM Reporting Lab: [address] [address] Performing Lab: [address] [place] [address] [facility] Vital Signs Combined list of inpatient and outpatient Vital Signs from Department of Defense and Veterans Affairs, ranging from 12 months to all on record, depending upon the facility. Vital Sign Value Date Comments Source SYSTOLIC BLOOD PRESSURE 108 07/24/2024 09:45:00 [place] DIASTOLIC BLOOD PRESSURE 76 07/24/2024 09:45:00 [place] PULSE OXIMETRY 98 07/24/2024 09:45:00 [place] WEIGHT 207 07/24/2024 09:45:00 [place] BMI 32 kg/m2 07/24/2024 09:45:00 [place] HEIGHT 67 07/24/2024 09:45:00 [place] PULSE 92 07/24/2024 09:45:00 [place] SYSTOLIC BLOOD PRESSURE 111 07/17/2024 12:17:04 [place] DIASTOLIC BLOOD PRESSURE 73 07/17/2024 12:17:04 [place] PULSE OXIMETRY 98 07/17/2024 12:17:04 [place] WEIGHT 207.2 07/17/2024 12:17:04 [place] BMI 33 kg/m2 07/17/2024 12:17:04 [place] TEMPERATURE 97.9 07/17/2024 12:17:04 [place] PULSE 97 07/17/2024 12:17:04 [place] RESPIRATION 19 07/17/2024 12:17:04 [place] SYSTOLIC BLOOD PRESSURE 122 06/22/2024 14:15:00 [place] DIASTOLIC BLOOD PRESSURE 86 06/22/2024 14:15:00 [place] PULSE OXIMETRY 96 06/22/2024 14:15:00 [place] WEIGHT 205 06/22/2024 14:15:00 [place] BMI 32 kg/m2 06/22/2024 14:15:00 [place] HEIGHT 67 06/22/2024 14:15:00 [place] PULSE 88 06/22/2024 14:15:00 [place] SYSTOLIC BLOOD PRESSURE 168 05/24/2024 13:35:51 [place] DIASTOLIC BLOOD PRESSURE 114 05/24/2024 13:35:51 [place] PULSE OXIMETRY 96 05/24/2024 13:35:51 [place] WEIGHT 207 05/24/2024 13:35:51 [place] BMI 32 kg/m2 05/24/2024 13:35:51 [place] HEIGHT 67 05/24/2024 13:35:51 [place] TEMPERATURE 97.4 05/24/2024 13:35:51 [place] PULSE 78 05/24/2024 13:35:51 [place] RESPIRATION 18 05/24/2024 13:35:51 [place] Encounters Combined list of: 1) Encounters from Department of Veterans Affairs facilities going backup to the last 18 months, not all VA inpatient encounters are included; 2) Encounters from the Department of [facility] facilities going backup to 280 months. Location Location Details Encounter Type Encounter Number Reason For Visit Attending Provider ADM Date DC Date Status Disposition Source [facility] Encounter [id number] 1.04[facility]24 [facility] En[facility] [id number] 1.08/25 [facility] Encounter [id number] 1.05/15 [facility] Encounter [id number] 1.05/24 [facility] OFFICE O/P EST MOD 30 MIN [id number] Diagnos is: ICD-10- CM I10 Essenti al (primar y) hyperte nsion SHAWN MCCURDY 05/24 [place] [facility] Encounter [id number] 1.05/24 [facility] Outpatient Encounter [id number] [facility] [place] OFF/OP EST MAY X REQ PHY/QHP [id number] Diagnos is: ICD-10- CM I10 Essenti al (primar y) hyperte LESLYE Rousseau Y N 06/22 [place] OFF/OP EST MAY X REQ PHY/QHP [id number] Diagnos is: ICD-10- CM I10 Essenti al (primar y) hyperte LESLYE Rousseau Y N 06/22 [place] [facility] ELECTROCAR DIOGRAM REPORT [id number] Diagnos is: ICD-10- CM Z13.6 Encount er for screeni ng for cardiov ascular disorde rs NANCY PRATHERI PE A 06/22 [place] [facility] Outpatient Encounter [id number] 1.07/05 [facility] Outpatient Encounter [id number] 07/17 [facility] [place] O/P EST LOW 20 MIN [id number] Diagnos is: ICD-10- CM M25.551 Pain in right hip SHAWN MCCURDY N 07/17 [place] [facility] Out[facility] Encounter [id number] 07/24 [facility] [place] OFF/OP EST MAY X REQ PHY/QHP [id number] Diagnos is: ICD-10- CM I10 Essenti al (primar y) hyperte SHAWN Faustin N 07/24 [place] [facility] Out[facility] Encounter [id number] 08/03 [facility] Outpatient [facility]counter [id number] 08/07 [facility] Outpatient Encounter [id number] 08/31 [facility] Social History Combined list of available smoking, tobacco, and other social history from Department of Defense and Veterans Affairs facilities. Social History Type Response Date Comment [facility] e Tobacco smoking status NHIS VA-TOBACCO NEVER USED 05/24/20 [place] Plan of Care List of future care activities from Department of Veterans Affairs facilities. Additional future care activities may be listed in the Assessment and Plan section. Date/Time Care Activity Care Activity Detail [facility] 09/27/2024 AMBULATORY - MEDICINE AMBULATORY - MEDICI [facility] 10/01/2024 AMBULATORY - MEDIC[place] [facility] [place] [facility] 11/13/2024 AMBULATORY - MEDICINE [place] [facility] [place] [facility]
--- OUTSIDE RECORDS SUMMARY | 2024-09-27 09:40 | XMS_ITS ---
Author Name [facility] [facility] [place] Address [address] [place] [address] Care Team Providers Care Production Underwriter Name Role Phone JESSICA MCCURDY Primary Care Provider Unavailabl e Selected Encounter This section includes the information on record at [place] for the Encounter. Date/Time Encounter Type Encounter Description Reason Pro vider Source Aug 31, 2024 09:58 AM Outpatient Encounter TELEPHONE TRIAGE IHE Encounter Template Text not used by [place] Plan of Treatment: Future Appointments (+ 6 months) and Future Tests (+/- 45 days) The Plan of Treatment section includes future care activities for the patient from all [place] treatmentfacilities. This section includes future appointments and future orders which are active, pending or scheduled. Future Appointments This section includes appointments that were scheduled to occur 6 months from the date of the Encounter, up to a maximum of 20 appointments. The data comes from all [place] treatment facilities. Appointment Date/Time Appointment Type Appointme nt Facility Name Sep 27, 2024 02:00 PM [facility]UL[facility] Oct 01, 2024 08:30 AM [facility] Nov 13, 2024 08:00 AM [facility] Active, Pending, and Scheduled Orders This section includes a listing of several types of active, pending, and scheduled orders, including clinic medications orders, diagnostic test orders, procedure orders and consult orders; where the start date of the order is 45 days before the date of the Encounter or 45 days after the date of theEncounter. The data comes from all [place] treatment facilities. Test Date/Time Test Type Test Details Facility Name Jul 17, 2024 12:09 PM Consult Order [facility] Jul 26, 2024 04:19 PM Consult Order [facility]-HEMATOLOGY [facility] Encounter Notes: All associated encounter notes This section contains the clinical notes associated to the Encounter. Date/Time Encounter Note(s) Provider Source Aug 31, 2024 09:58 AM RN PROGRESS NOTE: LOCAL TITLE: CCC: CLINICAL TRIAGE STANDARD TITLE: RN PROGRESS NOTE DATE OF NOTE: AUG 31, 2024@09:58:10 ENTRY DATE: AUG 31, 2024@09:58:11 AUTHOR: MINA COX MA EXP COSIGNER: URGENCY: STATUS: COMPLETED CCC: CLINICAL TRIAGE Has ADDENDA Patient Demographics Patient Name: BERRY LOPEZ Patient Primary Address: [address] [place] [address] Patient Primary Phone: [phone] Patient : 1975 Patient Age: 49 Caller/Recipient Relation to Patient: Self Caller Name: BERRY LOPEZ Emergency Contact: GLORY RODRIGUEZ Triage Summary Conducted triage/discussed symptoms Utilized the Triage Tool: Yes Chief Complaint: Cough System WHEN: Within 24 Hours Nurse's Recommendation / WHEN: Within 24 Hours System WHERE: Clinic Nurse's Recommendation / WHERE: Clinic/[facility] Patient Disposition Patient/Caregiver agrees to plan of care: Yes Nursing Plan and Disposition Referred for CCC Virtual Clinic Visit Transferred patient to Sched & Admin-VCV Referred Patient for In-Person Appt Transferred patient to Sched & Admin-Apt Transferred patient to facility MSA Provided location of Urgent Care Center Advised of [place] [facility] Benefits Other course(s) of action Generated msg to PACT/Provider Provided guidance for worsening symptoms: *Caller/Patient* advised to call facilities [place] Clinical Contact Center or seek immediate medical attention for new or worsening symptoms Nurse Summary Nurse Summary: SITUATION: states he has been ill x 4 days with dry cough, mild sob on exertion, headache, body aches, nasal congestion, sore throat, fatigue, poor sleep. When present, nasal drainage is clear. Throat is raw and painful with pain 8-9/10 at times. *See [facility] details below for additional +/- signs & symptoms. RN RECOMMENDATION: Triage outcome is 24 hours and he was agreeable to either a F2F PCP appointment or CCC VVC PURCHASE PRICE ANALYST appointment in that time frame. Warm transfer to [facility] scheduling queue to assist with setting up the appointment. Provided with the following [facility] as backup: directed to call prior to going to verify availability [facility] [address] [place] [address] [facility] [address] [place] [id number] [facility] [address] [place] [address] [facility] [address] [place], [place] [id number] Clinical Contact Center Codes Clinic/Location: V1 CWM PHONE CCC RN Decision Support System Output: Triage Complete Triage Date: 08/31/2024, 09:45 AM Triage Note: Decision Support Tool Used: [facility] Phone Triage 31 Aug 2024 14:38:10 +0000 [facility] Demographics 49 y/o Male Results CC: Cough Software suggested: Within 24 Hours Software suggested follow-up location: Clinic, consider virtual care Values and Measures Duration of CC: 4 Days Positive Responses HPI: cough, new or worsening HPI: dyspnea on exertion, worse than usual during normal activities HPI: dyspnea, new or worsening HPI: headache HPI: lightheadedness, with dyspnea HPI: myalgias HPI: weakness, fatigue, more than usual HPI: wheezing, new or worsening VS: respiratory rate not taken VS: temperature not taken Negative Responses Denies: HPI: arm pain, with dyspnea Denies: HPI: chest pain, new or worsening Denies: HPI: chest pain, pleuritic Denies: HPI: confined passenger travel, duration longer than 6 hours, within past 2 weeks Denies: HPI: cough, purulent sputum Denies: HPI: diaphoresis, with dyspnea Denies: HPI: dyspnea, moderate to severe Denies: HPI: dyspnea, sudden onset Denies: HPI: dyspnea, worsening Denies: HPI: fever, subjective Denies: HPI: hemoptysis Denies: HPI: high altitude exposure over 6,000 feet Denies: HPI: jaw pain, with dyspnea Denies: HPI: leg pain, worsening Denies: HPI: leg swelling, unilateral Denies: HPI: melena Denies: HPI: mental status change, confusion Denies: HPI: mental status change, lethargy Denies: HPI: nausea or vomiting, with dyspnea Denies: HPI: nonambulatory, confined to bed or wheelchair, for more than 4 days Denies: HPI: syncope, with dyspnea Denies: HPI: weakness, with dyspnea Denies: MEDS: chemotherapy Denies: MEDS: home oxygen Denies: PMH: angina Denies: PMH: asthma Denies: PMH: CHF Denies: PMH: COPD Denies: PMH: diabetes Denies: PMH: DVT Denies: PMH: heart attack Denies: PMH: HIV positive Denies: PMH: kidney failure, receiving dialysis Denies: PMH: pulmonary embolism Denies: PMH: stroke or TIA Denies: PSH: organ transplant Denies: PSH: spleen removed Denies: PSH: surgery, trunk or abdomen, within past month IMPORTANT: This note was created by [facility] Clinical Contact Center staff. Please do not alert the staff member by adding them as a signer for future communications. Alerts are not monitored by this user. /ernesto COX RN, MSN,RNC-TNP REGISTERED NURSE Signed: 08/31/2024 09:58 Receipt Acknowledged By: 09/04/2024 13:21 /holli/ LOCO NAVARRO LPN LPN 09/03/2024 10:18 /ernesto SUNG RN REGISTERED NURSE 09/03/2024 ADDENDUM STATUS: COMPLETED Called without success. Unable to leave VM as message states VM has not been set up yet. /ernesto SUNG RN REGISTERED NURSE Signed: 09/03/2024 10:18 MINA COX [facility]
== END 2024-09-27 08:52 | disposition home or self-care (01) ==
LOC: HO.BBR 08:51
PROVIDERS: PCP Internal Medicine; Visit Provider Internal Medicine Medical Oncology
DX: Z13.89 Encounter for screening for other disorder (principal)

== ENCOUNTER 2024-10-01 08:17 | Outpatient (AMB) | payer OTHER, SELFPAY ==
[2024-10-01 08:20] VITALS: BMI 33.2
--- NOTE | 2024-10-01 08:20 | MHC.OFFVIS ---
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 MRI done. Patient reports his symptoms started around February/March after he turned awkward in bed. He was seen for an MRI, stating results showed possible torn ligament and arthritis. His pain has improved however he has a pulling sensation in his groin. States that he walks with a limp. No numbness or tingling. No other tx. Denies injury. Occasionally he will take Aleve prn. 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 He states the pain started around feb or mar last year. He thinks it may be due to sleeping awarkdly in bed. He has pain with rotation of the hip and crossing legs. [facility] and was referred to our office for ortho eval. He continues to have difficulty with sitting to standing, crossing the right leg over leg . He denies numbness or tingling. [facility] Medical History Hemochromatosis Obesity Surgical History History of endoscopy History of colonoscopy History of liver biopsy Family History Mother No problems noted. Father Colon cancer Heart disease Hypertension Paternal Aunt Breast cancer Social History (Updated 10/01/24 @ 08:34 by JOANNE Espinoza) Household Members: None Housing: Apartment Are you a primary respiratory care specialist to a significant other at home: No Do you presently have visiting nurse or other home services: No Alcohol intake: current Alcohol intake frequency: a few times a week Patient Tobacco Use Status: Never used Tobacco Tobacco use type: Cigarette e-Cigarette/Vaping Use: Never Used Second Hand Smoke Exposure: No Substance Use Type: Marijuana service: Yes Current occupational status: employed 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 Cognitive needs: No Hearing needs: No Vision needs: Yes (glasses) Review of Systems Const All systems reviewed & are unremarkable except as noted in HPI and below Physical Exam Vital Signs: BMI result Body Mass Index 33.2 Const General: cooperative and no acute distress Orientation/consciousness: patient oriented x3 Resp Effort & Inspection: normal respiratory effort and able to speak in complete sentences Cardio Peripheral pulses: Peripheral pulses 2+ throughout Neuro General: patient oriented x3 Extrem Other: Left hip normal to inspection no pain with range of motion of the hip he does have discomfort with abduction against resistance and positive straight leg raise. Results Reviewed Results Reviewed: MR hip RT wo con 06/18/24 IMPRESSION: 1. Minimal right hip arthritis. No evidence of acute fracture, avascular necrosis or stress reaction. 2. Anterosuperior labral findings suspicious for a tear. 3. Minimal gluteus minimus and medius tendinosis. Mild iliopsoas strain/tendinosis. Mild quadriceps femoris muscle edema, probable strain. Assessment & Plan Assessment & Plan (1) Tendinitis involving right hip abductors: Code(s): M76.891 - Other specified enthesopathies of right lower limb, excluding foot Category: Medical (2) Lumbar degenerative disc disease: Code(s): M51.369 - Other intervertebral disc degeneration, lumbar region without mention of lumbar back pain or lower extremity pain Category: Medical Plan I feel as though the source of his pain is gluteal tendinitis/abductor weakness. I put an order in for physical therapy to work on strengthening exercises but also working on lumbar stabilizing and core exercises. I sent a prescription for Celebrex to the pharmacy to take twice a day for 2 weeks to alleviate his symptoms. If symptoms persist or working in it has slowly around the groin we can discuss steroid injection at the hospital otherwise follow up as needed. Orders: Orders PT Evaluation and Treatment Today M51.369 - Other intervertebral disc degeneration, lumbar region without mention of lumbar back pain or lower extremity pain, M76.891 - Other specified enthesopathies of right lower limb, excluding foot Medications: New celecoxib (Celebrex) 200 mg PO BID 60 caps 3RF 30 days Coding Level of Care Code New Pt Level 3 (50873) Complex EM visit Add On G2211 Diagnoses Tendinitis involving right hip abductors M76.891 Lumbar degenerative disc disease M51.369
== END 2024-10-01 10:54 | disposition home or self-care (01) ==
PROVIDERS: PCP Internal Medicine; Referring Provider Internal Medicine; Visit Provider Physician Assistant
DX: M76.891 Other specified enthesopathies of right lower limb, excluding foot (principal); M51.369 Other intervertebral disc degeneration, lumbar region without mention of lumbar back pain or lower extremity pain
CPT/HCPCS: 99204; G2211

== ENCOUNTER → 2024-10-01 08:17 | Outpatient (BNVA) | payer OTHER, SELFPAY | PROVIDERS: PCP Internal Medicine; Visit Provider Physician Assistant | DX: M76.891 Other specified enthesopathies of right lower limb, excluding foot (principal); M51.369 Other intervertebral disc degeneration, lumbar region without mention of lumbar back pain or lower extremity pain | CPT/HCPCS: 99202 ==

== ENCOUNTER 2024-11-27 13:50 | Outpatient (REF) | payer OTHER, SELFPAY ==
--- OUTSIDE RECORDS SUMMARY | 2024-11-27 15:10 | XMS_ITS | Data Portability ---
Author Organization [facility] [employer], [address] Address [address] [place] [address] Care Team Providers Care Class A Regional Truck Driver Name Role Phone ISAURA ROBLES Primary Care Provider Assessment No assessment recorded. Plan of Treatment Reminders Order Date Submit Date Provider Last Modified By Organization Details Last Modified Time Details Appointments None recorded. Lab None recorded. Referral None recorded. Procedures None recorded. Surgeries None recorded. Imaging None recorded. Medication Orders Bactrim DS 800 mg-160 mg tablet 2022 023 [id number], [address] [place], [address], 11:29:17 ibuprofen 600 mg tablet 2022 023 [id number], [address] [place], [address], 11:29:18 Patient TargetsNo targets recorded. Patient Instructions Encounter Date Encounter Id Patient Instructions Last Modified By Organization Details Last Modified Time 10/17/2022 [id number] cellulitis: care instructions [email or web address] Not available 10/17/2022 11:29:15 Apply a warm compress to the affected area for 15-20 minutes at a time up to 4 times a day. [email or web address] Not available 10/17/2022 10:33:10 Reason for Referral [...] Name and Address Organization Details Recorded Time 843647 Substance with morphinan structure and opioid receptor agonist mechanism of action (substanc e) medicatio n dizziness vomiting Not available Not available Not available 10/17/2022 95444 9000 SNOMED [facility]O [facility]nard [facility] - [facility] [...] Updated DateTime 3 170.18 cm 32.1 kg/m2 08030.4 4 g 99.1 [degF] 98 % 98 % 97 /min 16 /min 141 mm[Hg] 97 mm[Hg] TEMO CHOW PA - [facility] 10:44:31 Social History Question Answer Notes LastModified by Organizat ion Details LastModified Time Tobacco Smoking Status Never Smoker [facility] [place] [facility] 10/17/2022 10:42:03 What Is Your Level Of Alcohol Consumption? Occasional [email or web address] Information not available 10/17/2022 Which Illicit Or Recreational Drugs Have You Used? Marijuana Occas Information not available 10/17/2022 Do You Use Any Illicit Or Recreational Drugs? Yes [email or web address] Information not available 10/17/2022 Have You Recently Traveled Abroad? No Information not available 10/17/2022 Do You Or Have You Ever Used Any Other Forms Of Tobacco Or Nicotine? No Information not available 10/17/2022 Sex: Unknown Functional Status None recorded. Mental Status None recorded. Family History Relationship Description Onset Age of this Age Resolved Age Notes LastModified by Organization Details LastModified Time Father Diabetes mellitus [email or web address] Not available 2022 10:40:44 Father Myocardial infarction [email or web address] Not available 10/17 10:41:03 Paternal Grandfather Myocardial infarction [email or web address] Not available 10/17 10:40:59 Medical History No medical history recorded. Past Encounters Encounter ID Performer Location Encounter Start Date Encounter Closed Date Diagnosis/Indication Diagnosis SNOMED-CT Code Diagnosis ICD10 Code Diagnosis Note [id number] Chris DO Alfreda [address] [address] 10/17/2022 09:43:03 10/17/2022 11:36:54 Cellulitis [id number] L03.90 no abscess noterecomm end Po ABxsitz [...] [place] Member ID Guarantor Name 10/17/2022 1 [facility] ([facility] [id number] Ceferino Ferro [id number] Ceferino Ferro Notes Date Note Type Note Provider Name and Address Organization Details Recorded Time 10/17/2022 text/html AbscessReported bypatient.Notes:47 yo malec/o abscess in the middle of buttocks+ pain+ drainageno bleeding+ subjective fever+ chillsno n/vno otc meds He had a colonoscopy a few years ago and has one booked for next month Chris Gant, DO [address] [place], [address], [place] - [facility] 10/17/2022 11:29:46
--- OUTSIDE RECORDS SUMMARY | 2024-11-27 15:11 | XMS_ITS | Encounter Summary ---
Author Name [facility] Organization [facility] [place] Address [address] [place] [address] Care Team Providers Care Pants Busheler Name Role Phone JESSICA MCCURDY Primary Care Provider Unavailabl e Selected Encounter This section includes the information on record at [place] for the Encounter. Date/Time Encounter Type Encounter Description Reason Provider Source Jul 24, 2024 11:00 AM OFF/OP EST NOVEMBER X REQ PHY/QHP PRIMARY CARE/MEDICINE ICD-10-CM I10 Essential (primary) hypertension JESSICA MCCURDY Radha Encounter Template Text not used by MD Assessments - Encounter Diagnoses This section includes the primary and secondary diagnoses documented for the Encounter. Date/Time Primary/Secondary Diagnosis Diagnosis Name Provider Source Jul 24, 2024 06:05 PM PRIMARY Essential (primary) hypertension ELLA MARTINEZ [facility] Plan of Treatment: Future Appointments (+ 6 [...] - MEDICINE [facility] [place] [facility] Nov 13, 2024 08:00 AM AMBULATORY - [facility] Dec 28, 2024 02:30 PM AMBULATORY - MEDICINE [facility] Active, Pending, and Scheduled Orders This [...] PM Consult Order COMMUNITY CARE-ORTHO SURGICAL [facility] Jul 26, 2024 04:19 PM Consult Order COMMUNITY CARE-HEMATOLOGY [facility] Vital Signs: All taken on the encounter date This section contains inpatient and outpatient Vital Signs collected on the date of the Encounter. Date/Time Temperature Pulse Blood Pressure Respiratory Rate SP02 Pain Height Weight Body Mass Index Source Jul 24, 2024 10:15 AM 92 108/76 [facility] Jul 24, 2024 09:45 AM 92 108/76 98 67 207 32 [facility] Social History: Smoking Status (Most current) and Tobacco Use (All prior to encounter date) This section includes the most current, and the historical, smoking and tobacco- related health factors from the [facility] facility where the Encounter took place. Current Smoking Status This section includes the most current smoking, or tobacco-related health factor, from the [place] facility where the Encounter took place. Date/Time Current Smoking Status Anjum price May 24, 2024 01:00 PM VA-TOBACCO NEVER USED [facility] Encounter Notes: All associated encounter notes This [...] 07/26/2024 09:56 Receipt Acknowledged By: 07/26/2024 10:01 /holli/ JSESICA MCCURDY PA-C STAFF PHYSICIAN ENTERTAINMENT DANCER ==== --- Original Document --- 07/24/24 PRIMARY [...] last visit, it is helping with compliance. was looking for results on bloodwork done 06/22/24 and MRI Low Back done on 06/18/24. PACT RN called [facility] for MRI results, per Radiology Dept this [...] Nurse (RN) Signed: 07/26/2024 09:39 ELLA MARTINEZ Jul 24, 2024 11:37 AM NURSING NOTE: [...] COSIGNER: URGENCY: STATUS: COMPLETED F: ===== BERRY Fountain JESSICA is a 49 yo who presents to [...] last visit, it is helping with compliance. was looking for results on bloodwork done 06/22/24 and MRI Low Back done on 06/18/24. PACT RN called [facility] for MRI results, per Radiology Dept this has not been read yet, Radiology will alert radiologist to have this read NIDIA. Labs discussed with , lazaro is willing to [...] 10:01 /es/ JESSICA MCCURDY PA-C STAFF PHYSICIAN ENTERTAINMENT DANCER ELLA MARTINEZ
--- OUTSIDE RECORDS SUMMARY | 2024-11-27 15:11 | XMS_ITS | Encounter Summary ---
Author Name [facility] [place] [facility] [place] Address [address] [place] [address] Care Team Providers Care Hides And Skins Colorer Name Role Phone JESSICA MCCURDY Primary Care Provider Unavailabl e Selected Encounter This section includes the information on record at [place] for the Encounter. Date/Time Encounter Type Encounter Description Reason Pro vider Source November 26, 2024 08:26 AM Outpatient Encounter PRIMARY CARE/MEDICINE IHE Encounter Template [...] Date/Time Appointment Type Appointme nt Facility Name Dec 28, 2024 02:30 PM [facility]ULATORY - [facility]ICINE [facility] Apr 05, 2025 09:00 AM [facility] Encounter Notes: All associated encounter notes This section contains the clinical notes associated to the Encounter. Date/Time Encounter Note(s) Provider Source November 26, 2024 08:26 AM MEDICATION MGT NOT E: LOCAL TITLE: OUTPATIENT MEDICATION REQUEST STANDARD TITLE: MEDICATION MGT NOTE DATE OF NOTE: NOVEMBER 26, 2024@08:26 ENTRY DATE: NOVEMBER 26, 2024@08:26:22 AUTHOR: LOCO NAVARRO EXP COSIGNER: URGENCY: STATUS: COMPLETED Medication Request Date of Request: November Is this a New Medication? No PLEASE RENEW AND MAIL LISINOPRIL 10MG TAB TAKE ONE TABLET BY MOUTH ONCE DAILY TO ACTIVE CONTROL BLOOD PRESSURE Indication: FOR HIGH BLOOD PRESSURE /holli/ LOCO NAVARRO LPN LPN Signed: 11/26/2024 08:27 Receipt Acknowledged By: 11/26/2024 08:54 /holli/ ELMER JOSEPH MD PHYSICIAN LOCO NAVARRO
--- OUTSIDE RECORDS SUMMARY | 2024-11-27 15:11 | XMS_ITS | Continuity of Care Document ---
Author Name [facility] Organization [facility] Care Team Providers Care Ceo & Co Founder Name Role Phone [facility] Unavailable Unavailable Problems Combined list of problems [...] JESSICA MCCURDY [facility] Entered By: JESSICA MCCURDY Comment: Is HereditaryOct 2023 Entered By: JESSICA MCCURDY Comment: Liver Bx approx 2003: Little Bit of CirrhosisOct 2023 Entered By: JESSICA MCCURDY Comment: Does Serial US's of ABD as Directed Outside [facility] 2023 Entered By: JESSICA MCCURDY Comment: Phlebotomies Happens at Two-Month Intervals; Needs Whole Day Off Work (makes him tired) [place] Hypercholesterolemia Active Condition May 24, 2024 Entered By: JESSICA MCCURDY Comment: Not on Statin as of MAY 17 [place] Hypertension Active Condition May 24, 2024 Entered By: JESSICA MCCURDY Comment: Heretofore Undiagnosed and Untreated HTN as of MAY 17Oct 2023 Entered By: JESSICA MCCURDY Comment: KARL ContributoryOc t 2023 Entered By: JESSICA MCCURDY Comment: Request EKG and CXR in MAY 17 as Baselines for Eval of HTNDec 2023 Entered By: JESSICA MCCURDY Comment: CXR, JUN 17: No Acute Pulmo Processes or Megaly [place] Myofascial low back pain Active Condition May 24, 2024 Entered By: JESSICA MCCURDY Comment: Non-Radicular LBP; Plain [facility] Unremarkable;J an 2024 Entered By: JESSICA MCCURDY Comment: MRI, L-Spine [facility] AUG 18: Discogenic Changes L2-L3 ( L1-L2;Aug [...] refer Pain Cl[facility] in AUG 18 [place] Obstructive sleep apnea syndrome Active Condition May 24, 2024 Entered By: JESSICA MCCURDY Comment: Has CPAP [place] Pain in right hip joint Active Condition [...] JESSICA MCCURDY Comment: Poss Quad Femoris Strain [place] Rash Active Condition May 24 Entered By: JESSICA MCCURDY Comment: Lateral Aspect, Orbital Bone R Eye; Pre-Malig?? pending DERM Eval SEP25 [place] Screening for malignant neoplasm of colon done Active Condition May 24, 2024 Entered By: JESSICA MCCURDY Comment: Last Survil Colonoscopy 2022; +Polyposis; no CRCOct 2023 Entered By: JESSICA MCCURDY Comment: repeat 2023 Entered By: JESSICA MCCURDY Comment: Initial Diagnost Colonoscopy Done Due to Hematochezia [place] Diagnosis: ICD-10-CM I10 Essential (primary) hypertension Active Diagnosis [facility] Diagnosis: ICD-10-CM M25.551 Pain in right hip Active Diagnosis [place] Diagnosis: ICD-10-CM Z13.6 Encounter for screening for cardiovascular disorders Active Diagnosis [facility] Medications Combined list of outpatient medications from [...] FOR VITAMIN SUPPLEME NTATION ORAL ACTIVE 07/27/2025 [id number] PK MCCURDY 2024 100 [place] CYCLOBENZAP RINE HCL 5MG TAB TAKE ONE TABLET BY MOUTH EVERY EVENING FOR MUSCLE SPASM ORAL ACTIVE 09/28/2025 [id number] WENDY CID 2024 90 [place] LISINOPRIL 10MG TAB TAKE ONE TABLET BY MOUTH ONCE DAILY TO CONTROL BLOOD PRESSURE ORAL ACTIVE 11/27/2025 [id number] [place] FAM 2024 60 [place] LISINOPRIL 10MG TAB TAKE ONE TABLET BY MOUTH ONCE DAILY FOR HIGH BLOOD PRESSURE TO CONTROL BLOOD PRESSURE ORAL DISCONT INUED 05/25/2025 [id number] 4 PK MCCURDY 2023 60 [place] MELOXICAM 15MG TAB TAKE ONE TABLET BY MOUTH ONCE DAILY NEEDED FOR PAIN ORAL ACTIVE 09/28/2025 [id number] 5 WENDY CID 2024 60 [place] ROSUVASTATI N CA 40MG TAB TAKE ONE-HALF TABLET BY MOUTH ONCE DAILY FOR HIGH CHOLESTE ROL ORAL ACTIVE 07/27/2025 [id number] 5 PK MCCURDY 2024 45 [place] Allergies, Adverse Reactions, Alerts Combined list of allergies from Department of Defense and Veterans Affairs facilities. It does not include entries that were removed or entered in error. Substance Category Reaction Severity Reaction type Status Date Reported Comments Source TRAMADOL Propensity to adverse reactions to drug (finding) Itching MODERATE active 10/31/202 4 [facility] Immunizations Combined list of available immunizations from the Department of Defense and Veterans Affairs facilities. Immunization Series Date Given Administered By Site Reaction Lot Number CVX Code Drug Planning Analyst Status Comments Source TD(ADULT) UNSPECIFIED FORMULATION 2015 139 complet ed HISTORICA L INFORMATI ON - FROM PATIENT'S WRITTEN RECORD, [facility] [employer] [place] [facility] TDAP 2015 115 complet ed HISTORICA L INFORMATI ON - FROM OTHER PROVIDER, record obtained from [facility] 07/30/2020 office visit note sent to scanning [facility] [employer] [place] [employer] [facility] Results Combined list of recent chemistry, hematology [...] May 24, 2024 02:10 PM Reporting Lab: [facility] [address] [address] Performing Lab: [facility] [address] [address] [place] URINALYS IS APPEARANCE OF URINE Clear 06/22 Specimen Type: URINE Comment: If Glucose = >500 and Ketones are positive, please alert the Physician. Ordering Provider: JESSICA MCCURDY Report Released Date/Time: May 24, 2024 02:10 PM Reporting Lab: [facility] [address] [facility] [address] Performing Lab: [address] [address] [place] URINALYS IS GLUCOSE [MASS/VOLU ME] IN URINE Normalmg /dL 06/22 Specimen Type: URINE Comment: If Glucose = >500 and Ketones are positive, please alert the Physician. Ordering Provider: JESSICA MCCURDY Report Released Date/Time: May 24, 2024 02:10 PM Reporting Lab: [facility] [address] [facility] [address] Performing Lab: [facility] [address] [address] [place] URINALYS IS KETONES [MASS/VOLU ME] IN URINE BY TEST STRIP NEGATIVE mg/dL 06/22 Specimen Type: URINE Comment: If Glucose = >500 and Ketones are positive, please alert the Physician. Ordering Provider: JESSICA MCCURDY Report Released Date/Time: May 24, 2024 02:10 PM Reporting Lab: [address] [address] Performing Lab: [address] [address] [place] URINALYS IS ERYTHROCYT ES [PRESENCE] IN URINE SEDIMENT BY LIGHT MICROSCOPY NEGATIVE mg/dL 06/22 Specimen Type: URINE Comment: If Glucose = >500 and Ketones are positive, please alert the Physician. Ordering Provider: JESSICA MCCURDY Report Released Date/Time: May 24, 2024 02:10 PM Reporting Lab: [address] [address] Performing Lab: [address] [address] [place] URINALYS IS PROTEIN [MASS/VOLU ME] IN URINE BY TEST STRIP NEGATIVE mg/dL 06/22 Specimen Type: URINE Comment: If Glucose = >500 and Ketones are positive, please alert the Physician. Ordering Provider: JESSICA MCCURDY Report Released Date/Time: May 24, 2024 02:10 PM Reporting Lab: [address] [address] Performing Lab: [address] [address] [place] URINALYS IS NITRITE [PRESENCE] IN URINE NEGATIVE mg/dL 06/22 Specimen Type: URINE Comment: If Glucose = >500 and Ketones are positive, please alert the Physician. Ordering Provider: JESSICA MCCURDY Report Released Date/Time: May 24, 2024 02:10 PM Reporting Lab: [address] [address] Performing Lab: [address] [address] [place] URINALYS IS BILIRUBIN. TOTAL [PRESENCE] IN URINE NEGATIVE mg/dL 06/22 Specimen Type: URINE Comment: If Glucose = >500 and Ketones are positive, please alert the Physician. Ordering Provider: JESSICA MCCURDY Report Released Date/Time: May 24, 2024 02:10 PM Reporting Lab: [address] [address] Performing Lab: [address] [address] [place] URINALYS IS SPECIFIC GRAVITY OF URINE BY REFRACTOME TRY 1.029 1.016 - 1.022 06/22 H Specimen Type: URINE Comment: If Glucose = >500 and Ketones are positive, please alert the Physician. Ordering Provider: JESSICA MCCURDY Report Released Date/Time: May 24, 2024 02:10 PM Reporting Lab: [address] [address] Performing Lab: [address] [address] [place] URINALYS IS PH OF URINE BY TEST STRIP 5.5 5.0 - 9.0 06/22 Specimen Type: URINE Comment: If Glucose = >500 and Ketones are positive, please alert the Physician. Ordering Provider: JESSICA MCCURDY Report Released Date/Time: May 24, 2024 02:10 PM Reporting Lab: [address] [address] Performing Lab: [address] [address] [place] URINALYS IS UROBILINOG EN [MASS/VOLU ME] IN URINE BY TEST STRIP Normalmg /dL <2.0 - 2.0 06/22 Specimen Type: URINE Comment: If Glucose = >500 and Ketones are positive, please alert the Physician. Ordering Provider: JESSICA MCCURDY Report Released Date/Time: May 24, 2024 02:10 PM Reporting Lab: [facility] [address] [facility] [address] Performing Lab: [facility] [address] [address] [place] URINALYS IS LEUKOCYTE ESTERASE [PRESENCE] IN URINE BY TEST STRIP NEGATIVE 06/22 Specimen Type: URINE Comment: If Glucose = >500 and Ketones are positive, please alert the Physician. Ordering Provider: JESSICA MCCURDY Report Released Date/Time: May 24, 2024 02:10 PM Reporting Lab: [address] [address] Performing Lab: [address] [address] [place] MICROALB UMIN CREATINI NE RATIO PANEL MICROALBUM IN/CREATIN INE [MASS RATIO] IN URINE 6.3 mg/g 0 - 29.9 06/22 Specimen Type: URINE No comment entered. Ordering Provider: JESSICA MCCURDY Report Released Date/Time: May 24, 2024 02:10 PM Reporting Lab: [facility] [address] [address] Performing Lab: [facility] [address] [address] [place] MICROALB UMIN CREATINI NE RATIO PANEL MICROALBUM IN [MASS/VOLU ME] IN URINE 0.8 mg/dL 06/22 Specimen Type: URINE No comment entered. Ordering Provider: JESSICA MCCURDY Report Released Date/Time: May 24, 2024 02:10 PM Reporting Lab: [facility] [address] [address] Performing Lab: [facility] [address] [address] [place] MICROALB UMIN CREATINI NE RATIO PANEL CREATININE [MASS/VOLU ME] IN URINE 127.87 mg/dL 06/22 Specimen Type: URINE No comment entered. Ordering Provider: JESSICA MCCURDY Report Released Date/Time: May 24, 2024 02:10 PM Reporting Lab: [address] [address] Performing Lab: [facility] [address] [address] [place] URIC ACID URATE [MASS/VOLU ME] IN SERUM OR PLASMA 6.1 mg/dL 3.5 - 7.2 06/22 Specimen Type: SERUM No comment entered. Ordering Provider: JESSICA MCCURDY Report Released Date/Time: May 24, 2024 02:10 PM Reporting Lab: [address] [address] Performing Lab: [address] [address] [place] VITAMIN D (25-OH) 25-HYDROXY VITAMIN D3 [MASS/VOLU ME] IN SERUM OR PLASMA 15 ng/mL 20 - 50 06/22 L Specimen Type: SERUM No comment entered. Ordering Provider: JESSICA MCCURDY Report Released Date/Time: May 24, 2024 02:10 PM Reporting Lab: [address] [address] Performing Lab: [address] [address] [place] CBC AND DIFF (AUTO) LEUKOCYTES [#/VOLUME] IN BLOOD BY AUTOMATED COUNT 5.15 10*3/uL 4.50 - 11.00 06/22 Specimen Type: BLOOD No comment entered. Ordering Provider: JESSICA MCCURDY Report Released Date/Time: May 24, 2024 02:10 PM Reporting Lab: [address] [address] Performing Lab: [address] [address] [place] CBC AND DIFF (AUTO) ERYTHROCYT ES [#/VOLUME] IN BLOOD BY AUTOMATED COUNT 5.35 10*6/uL 4.23 - 5.66 06/22 Specimen Type: BLOOD No comment entered. Ordering Provider: JESSICA MCCURDY Report Released Date/Time: May 24, 2024 02:10 PM Reporting Lab: [facility] [address] [facility] [address] Performing Lab: [facility] [address] [facility] [address] [place] CBC AND DIFF (AUTO) HEMOGLOBIN [MASS/VOLU ME] IN BLOOD 16.9 g/dL 12.8 - 17 06/22 Specimen Type: BLOOD No comment entered. Ordering Provider: JESSICA MCCURDY Report Released Date/Time: May 24, 2024 02:10 PM Reporting Lab: [facility] [address] [facility] [address] Performing Lab: [facility] [address] [address] [place] CBC AND DIFF (AUTO) HEMATOCRIT [VOLUME FRACTION] OF BLOOD BY AUTOMATED COUNT 46.3 39.2 - 50.4 06/22 Specimen Type: BLOOD No comment entered. Ordering Provider: JESSICA MCCURDY Report Released Date/Time: May 24, 2024 02:10 PM Reporting Lab: [facility] [address] [address] Performing Lab: [facility] [address] [address] [place] CBC AND DIFF (AUTO) MCV [ENTITIC VOLUME] BY AUTOMATED COUNT 86.5 fL 82 - 99 06/22 Specimen Type: BLOOD No comment entered. Ordering Provider: JESSICA MCCURDY Report Released Date/Time: May 24, 2024 02:10 PM Reporting Lab: [facility] [address] [address] Performing Lab: [facility] [address] [address] [place] CBC AND DIFF (AUTO) MCHC [MASS/VOLU ME] BY AUTOMATED COUNT 36.5 g/dL 30.8 - 35.1 06/22 H Specimen Type: BLOOD No comment entered. Ordering Provider: JESSICA MCCURDY Report Released Date/Time: May 24, 2024 02:10 PM Reporting Lab: [facility] [address] [facility] [address] Performing Lab: [facility] [address] [address] [place] CBC AND DIFF (AUTO) PLATELETS [#/VOLUME] IN BLOOD BY AUTOMATED COUNT 261 10*3/uL 140 - 360 06/22 Specimen Type: BLOOD No comment entered. Ordering Provider: JESSICA MCCURDY Report Released Date/Time: May 24, 2024 02:10 PM Reporting Lab: [facility] [address] [address] Performing Lab: [address] [address] [place] CBC AND DIFF (AUTO) ERYTHROCYT E DISTRIBUTI ON WIDTH [RATIO] BY AUTOMATED COUNT 12.0 12.0 - 16.0 06/22 Specimen Type: BLOOD No comment entered. Ordering Provider: JESSICA MCCURDY Report Released Date/Time: May 24, 2024 02:10 PM Reporting Lab: [facility] [address] [address] Performing Lab: [facility] [address] [address] [place] CBC AND DIFF (AUTO) MONOCYTES [#/VOLUME] IN BLOOD BY AUTOMATED COUNT 0.33 10*3/uL 0.30 - 1.10 06/22 Specimen Type: BLOOD No comment entered. Ordering Provider: JESSICA MCCURDY Report Released Date/Time: May 24, 2024 02:10 PM Reporting Lab: [facility] [address] [address] Performing Lab: [facility] [address] [address] [place] CBC AND DIFF (AUTO) MCH [ENTITIC MASS] BY AUTOMATED COUNT 31.6 pg 26.2 - 32.6 06/22 Specimen Type: BLOOD No comment entered. Ordering Provider: JESSICA MCCURDY Report Released Date/Time: May 24, 2024 02:10 PM Reporting Lab: [facility] [place] [address] [address] Performing Lab: [facility] [place] [address] [address] [place] CBC AND DIFF (AUTO) NEUTROPHIL S/100 LEUKOCYTES IN BLOOD BY AUTOMATED COUNT 62.5 43.7 - 75.8 06/22 Specimen Type: BLOOD No comment entered. Ordering Provider: JESSICA MCCURDY Report Released Date/Time: May 24, 2024 02:10 PM Reporting Lab: [facility] [place] [facility] [address] [facility] [address] Performing Lab: [facility] [address] [address] [place] CBC AND DIFF (AUTO) LYMPHOCYTE S/100 LEUKOCYTES IN BLOOD BY AUTOMATED COUNT 27.0 14.0 - 42.3 06/22 Specimen Type: BLOOD No comment entered. Ordering Provider: JESSICA MCCURDY Report Released Date/Time: May 24, 2024 02:10 PM Reporting Lab: [facility] [address] [address] Performing Lab: [facility] [address] [address] [place] CBC AND DIFF (AUTO) MONOCYTES/ 100 LEUKOCYTES IN BLOOD BY AUTOMATED COUNT 6.4 5.1 - 13.7 06/22 Specimen Type: BLOOD No comment entered. Ordering Provider: JESSICA MCCURDY Report Released Date/Time: May 24, 2024 02:10 PM Reporting Lab: [facility] [place] [address] [address] Performing Lab: [facility] [address] [address] [place] CBC AND DIFF (AUTO) EOSINOPHIL S/100 LEUKOCYTES IN BLOOD BY AUTOMATED COUNT 2.5 0.4 - 6.8 06/22 Specimen Type: BLOOD No comment entered. Ordering Provider: JESSICA MCCURDY Report Released Date/Time: May 24, 2024 02:10 PM Reporting Lab: [facility] [address] [address] Performing Lab: [facility] [address] [address] [place] CBC AND DIFF (AUTO) BASOPHILS/ 100 LEUKOCYTES IN BLOOD BY AUTOMATED COUNT 1.2 0.1 - 2.0 06/22 Specimen Type: BLOOD No comment entered. Ordering Provider: JESSICA MCCURDY Report Released Date/Time: May 24, 2024 02:10 PM Reporting Lab: [facility] [address] [address] Performing Lab: [facility] [address] [place] CBC AND DIFF (AUTO) NEUTROPHIL S [#/VOLUME] IN BLOOD BY AUTOMATED COUNT 3.22 10*3/uL 2.20 - 7.60 06/22 Specimen Type: BLOOD No comment entered. Ordering Provider: JESSICA MCCURDY Report Released Date/Time: May 24, 2024 02:10 PM Reporting Lab: [facility] [address] [address] Performing Lab: [facility] [address] [place] CBC AND DIFF (AUTO) LYMPHOCYTE S [#/VOLUME] IN BLOOD BY AUTOMATED COUNT 1.39 10*3/uL 1.00 - 3.20 06/22 Specimen Type: BLOOD No comment entered. Ordering Provider: JESSICA MCCURDY Report Released Date/Time: May 24, 2024 02:10 PM Reporting Lab: [facility] [address] [address] Performing Lab: [facility] [address] [place] CBC AND DIFF (AUTO) EOSINOPHIL S [#/VOLUME] IN BLOOD BY AUTOMATED COUNT 0.13 10*3/uL 0.03 - 0.44 06/22 Specimen Type: BLOOD No comment entered. Ordering Provider: JESSICA MCCURDY Report Released Date/Time: May 24, 2024 02:10 PM Reporting Lab: [facility] [address] Performing Lab: [facility] [address] [place] CBC AND DIFF (AUTO) BASOPHILS [#/VOLUME] IN BLOOD BY AUTOMATED COUNT 0.06 10*3/uL 0.01 - 0.13 06/22 Specimen Type: BLOOD No comment entered. Ordering Provider: JESSICA MCCURDY Report Released Date/Time: May 24, 2024 02:10 PM Reporting Lab: [facility] [address] Performing Lab: [facility] [address] [address] [place] CBC AND DIFF (AUTO) IMMATURE GRANULOCYT ES/100 LEUKOCYTES IN BLOOD BY AUTOMATED COUNT 0.4 0.0 - 0.7 06/22 Specimen Type: BLOOD No comment entered. Ordering Provider: JESSICA MCCURDY Report Released Date/Time: May 24, 2024 02:10 PM Reporting Lab: [facility] [address] Performing Lab: [facility] [address] [address] [place] CBC AND DIFF (AUTO) IMMATURE GRANULOCYT ES [#/VOLUME] IN BLOOD 0.02 10*3/uL 0.00 - 0.06 06/22 Specimen Type: BLOOD No comment entered. Ordering Provider: JESSICA MCCURDY Report Released Date/Time: May 24, 2024 02:10 PM Reporting Lab: [facility] [address] Performing Lab: [facility] [address] [address] [place] CBC AND DIFF (AUTO) NRBC % 0.0 0.0 - 0.0 06/22 Specimen Type: BLOOD No comment entered. Ordering Provider: JESSICA MCCURDY Report Released Date/Time: May 24, 2024 02:10 PM Reporting Lab: [facility] [address] [address] Performing Lab: [address] [address] [place] CBC AND DIFF (AUTO) NRBC, ABS 0.00 10*3/uL 0.00 - 0.00 06/22 Specimen Type: BLOOD No comment entered. Ordering Provider: JESSICA MCCURDY Report Released Date/Time: May 24, 2024 02:10 PM Reporting Lab: [address] [address] Performing Lab: [address] [address] [place] FERRITIN FERRITIN [MASS/VOLU ME] IN SERUM OR PLASMA 304 ng/mL 20 - 300 06/22 H Specimen Type: SERUM No comment entered. Ordering Provider: JESSICA MCCURDY Report Released Date/Time: May 24, 2024 02:10 PM Reporting Lab: [address] [address] Performing Lab: [address] [address] [place] TSH THYROTROPI N [UNITS/VOL UME] IN SERUM OR PLASMA 1.30 u[IU]/mL 0.35 - 5.00 06/22 Specimen Type: SERUM No comment entered. Ordering Provider: JESSICA MCCURDY Report Released Date/Time: May 24, 2024 02:10 PM Reporting Lab: [address] [address] Performing Lab: [address] [address] [place] HEMOGLOB IN A1C PANEL HEMOGLOBIN [...] PM Reporting Lab: [facility] [address] [facility] [address] Performing Lab: [facility] [address] [facility] [address] [place] PSA PROSTATE SPECIFIC AG [MASS/VOLU ME] IN SERUM OR PLASMA 0.34 ng/mL 0.00 - 4.00 06/22 Specimen Type: SERUM No comment entered. Ordering Provider: JESSICA MCCURDY Report Released Date/Time: May 24, 2024 02:10 PM Reporting Lab: [address] [address] Performing Lab: [address] [address] [place] BASIC METABOLI C PANEL (fasting ) UREA NITROGEN [MASS/VOLU ME] IN SERUM OR PLASMA 18 mg/dL 7 - 25 06/22 Specimen Type: SERUM No comment entered. Ordering Provider: JESSICA MCCURDY Report Released Date/Time: May 24, 2024 02:10 PM Reporting Lab: [address] [address] Performing Lab: [facility] [address] [address] [place] BASIC METABOLI C PANEL (fasting ) GLUCOSE [MASS/VOLU ME] IN SERUM OR PLASMA 95 mg/dL 65 - 100 06/22 Specimen Type: SERUM No comment entered. Ordering Provider: JESSICA MCCURDY Report Released Date/Time: May 24, 2024 02:10 PM Reporting Lab: [address] [address] Performing Lab: [address] [address] [place] BASIC METABOLI C PANEL (fasting ) SODIUM [MOLES/VOL UME] IN SERUM OR PLASMA 141 mmol/L 135 - 145 06/22 Specimen Type: SERUM No comment entered. Ordering Provider: JESSICA MCCURDY Report Released Date/Time: May 24, 2024 02:10 PM Reporting Lab: [facility] [address] [facility] [address] Performing Lab: [facility] [address] [address] [place] BASIC METABOLI C PANEL (fasting ) POTASSIUM [MOLES/VOL UME] IN SERUM OR PLASMA 4.1 mmol/L 3.5 - 5.0 06/22 Specimen Type: SERUM No comment entered. Ordering Provider: JESSICA MCCURDY Report Released Date/Time: May 24, 2024 02:10 PM Reporting Lab: [address] [address] Performing Lab: [facility] [address] [address] [place] BASIC METABOLI C PANEL (fasting ) CHLORIDE [MOLES/VOL UME] IN SERUM OR PLASMA 105 mmol/L 100 - 110 06/22 Specimen Type: SERUM No comment entered. Ordering Provider: JESSICA MCCURDY Report Released Date/Time: May 24, 2024 02:10 PM Reporting Lab: [address] [address] Performing Lab: [facility] [address] [address] Source [employer] LD BASIC METABOLI C PANEL (fasting ) CARBON DIOXIDE, TOTAL [MOLES/VOL UME] IN SERUM OR PLASMA 24 meq/L 20 - 30 06/22 Specimen Type: SERUM No comment entered. Ordering Provider: JESSICA MCCURDY Report Released Date/Time: May 24, 2024 02:10 PM Reporting Lab: [facility] [address] [address] Performing Lab: [facility] [address] [address] Source [employer] LD BASIC METABOLI C PANEL (fasting ) CREATININE [MASS/VOLU ME] IN SERUM OR PLASMA 0.77 mg/dL 0.50 - 1.40 06/22 Specimen Type: SERUM No comment entered. Ordering Provider: JESSICA MCCURDY Report Released Date/Time: May 24, 2024 02:10 PM Reporting Lab: [facility] [address] [facility] [address] Performing Lab: [address] [address] [email or web address] [facility] BASIC METABOLI C PANEL (fasting ) GLOMERULAR FILTRATION RATE/1.73 SQ M.PREDICTE D [VOLUME RATE/AREA] IN SERUM, PLASMA OR BLOOD BY CREATININE -BASED FORMULA (CKD-EPI 2020) >90mL/mi n 60 06/22 Specimen Type: SERUM No comment entered. Ordering Provider: JESSICA MCCURDY Report Released Date/Time: May 24, 2024 02:10 PM Reporting Lab: [facility] [address] [facility] [address] Performing Lab: [address] [address] Source AudioE Vital Signs Combined list of inpatient and outpatient Vital Signs from Department of Defense and Veterans Affairs, ranging from 12 months to all on record, depending upon the facility. Vital Sign Value Date Comments Source SYSTOLIC BLOOD PRESSURE 113 09/27/2024 13:52:45 [place] DIASTOLIC BLOOD PRESSURE 80 09/27/2024 13:52:45 [place] PULSE OXIMETRY 96 09/27/2024 13[facility]52:45 [facility] WE[facility] 208 09/27/2024 13:52:45 [place] [facility] BMI 33 kg/m2 09/27/2024 13:52:45 [facility] PULSE 91 09/27/2024 13:52:45 [facility] SYSTOLIC BLOOD PRESSURE 108 07/24/2024 09:45:00 [place] DIASTOLIC BLOOD PRESSURE 76 07/24/2024 09:45:00 [place] PULSE OXIMETRY 98 07/24/2024 09:45:00 [place] WEIGHT 207 07/24/2024 09:45:00 [place] [facility] BMI 32 kg/m2 07/24/2024 09:45:00 [place] HEIGHT 67 07/24/2024 09:45:00 [place] [facility] PULSE 92 07/24/2024 09:45:00 [facility] SYSTOLIC BLOOD PRESSURE 111 07/17/2024 12:17:04 [place] DIASTOLIC BLOOD PRESSURE 73 07/17/2024 12:17:04 [place] PULSE OXIMETRY 98 07/17/2024 12:17:04 [place] WEIGHT 207.2 07/17/2024 12:17:04 [place] BMI 33 kg/m2 07/17/2024 12:17:04 [place] TEMPERATURE 97.9 07/17/2024 12:17:04 [place] PULSE 97 07/17/2024 12:17:04 [place] RESPIRATION 19 07/17/2024 12:17:04 [place] SYSTOLIC BLOOD PRESSURE 122 06/22/2024 14:15:00 [place] DIASTOLIC BLOOD PRESSURE 86 06/22/2024 14:15:00 [place] PULSE OXIMETRY 96 06/22/2024 14:15:00 [place] WEIGHT 205 06/22/2024 14:15:00 [place] BMI 32 kg/m2 06/22/2024 14:15:00 [place] HEIGHT 67 06/22/2024 14:15:00 [place] PULSE 88 06/22/2024 14:15:00 [place] SYSTOLIC BLOOD PRESSURE 168 05/24/2024 13:35:51 [place] DIASTOLIC BLOOD PRESSURE 114 05/24/2024 13:35:51 [place] PULSE OXIMETRY 96 05/24/2024 13:35:51 [place] [...] included; 2) Encounters from the Department of Defense facilities going backup to 280 months. Location Location Details Encounter Type Encounter Number Reason For Visit Attending Provider ADM Date DC Date Status Disposition Source [facility] Outpatient Encounter [id number] 1.08/25 [facility] [id number] 1[facility]05/15 [facility] Encounter [id number] 1.05/24 [facility] [place] OFF[place] O/P EST MOD 30 MIN [id number] Diagnos is: ICD-10- CM I10 Essenti al (primar y) hyperte SHAWN Faustin N 05/24 [place] [facility] Encounter [id number] 1.05/24 [facility] [id number] 1.06/18 [facility] [place] OFF/OP EST MAY X REQ PHY/QHP [id number] 1BY. 83 Diagnos is: ICD-10- CM I10 Essenti al (primar y) hyperte nidia LESLYE WIN Y N 06/22 [place] OFF/OP EST MAY X REQ PHY/QHP [id number] Diagnos is: ICD-10- CM I10 Essenti al (primar y) hyperte nidia LESLYE WIN Y N 06/22 [place] [facility] [id number] Diagnos is: ICD-10- CM Z13.6 Encount er for screeni ng for cardiov ascular disorde rs BLUE PRATHER PE A 06/22 [place] [facility] En[facility] [id number] 07/05 [facility] En[facility] [id number] 07/17 [facility] [place] O/P EST LOW 20 MIN [id number] Diagnos is: ICD-10- CM M25.551 Pain in right hip SHAWN MCCURDY N 07/17 [place] [facility] Encounter [id number] 07/24 [facility] [place] OFF/OP EST MAY X REQ PHY/QHP [id number] Diagnos is: ICD-10- CM I10 Essenti al (primar y) hyperte nsion SHAWN MCCURDY N 07/24 [place] [facility] Encounter [id number] 08/03 [facility] [id number] [facility] Encounter [id number] 08/31 [facility] [place] O/P EST MOD 30 MIN [id number] Diagnos is: ICD-10- CM I10 Essenti al (primar y) hyperte nsion Essence CID 09/27 [place] [facility] Out[facility] Encounter [id number] 11/20 [facility] En[facility] [id number] 11/26 [facility] Social History Combined list of available smoking, tobacco, and other social history from Department of Defense and Veterans Affairs facilities. Social History Type Response Date Comment Sourc e Tobacco smoking status NHIS VA-TOBACCO NEVER USED 05/24/20 [place] Plan of Care List of future care activities from Department of Veterans Affairs facilities. Additional future care activities may be listed in the Assessment and Plan section. Date/Time Care Activity Care Activity Detail Facili ty 12/28/2024 AMBULATORY - MEDICINE AMBULATORY - MEDICI [place]
--- OUTSIDE RECORDS SUMMARY | 2024-11-27 15:11 | XMS_ITS | Encounter Summary ---
Author Name [facility] [place] [facility] [place] [facility] [place] Address [address] [place] [id number] Care Team Providers Care Telecommunications Sales Representative Name Role Phone JESSICA MCCURDY Primary Care Provider Unavailabl e Selected Encounter This section includes the information on record at [place] for the Encounter. Date/Time Encounter Type Encounter Description Reason Provider Source Jul 17, 2024 12:30 PM OFFICE O/P EST LOW 20 MIN PRIMARY CARE/MEDICINE ICD-10-CM M25.551 Pain in right hip JESSICA MCCURDY Encounter Template Text not used by [place] Assessments - Encounter Diagnoses This section includes [...] care activities for the patient from all [place] treatmentfacilities. This section includes future appointments and future orders which are active, pending or scheduled. Future Appointments This section includes appointments that were scheduled to occur 6 months from the date of the Encounter, up to a maximum of 20 appointments. The data comes from all [place] treatment facilities. Appointment Date/Time Appointment Type Appointme nt Facility Name Jul 24, 2024 11:00 AM [facility]ULATORY - MEDICINE [facility] Sep 27, 2024 02:00 PM [facility] Oct 01, 2024 08:30 AM AM[facility]ULATORY - MEDICINE [facility] Nov 13, 2024 08:00 AM AMBULATORY - MEDICINE [facility] Dec 28, 2024 02:30 PM AMBULATORY - MEDICINE [facility] Active, Pending, and Scheduled Orders This section includes a listing of several types of active, pending, and scheduled orders, including clinic medications orders, diagnostic test orders, procedure orders and consult orders; where the start date of the order is 45 days before the date of the Encounter or 45 days after the date of theEncounter. The data comes from all [place] treatment facilities. Test Date/Time Test Type Test Details Facility Name Jul 17, 2024 12:09 PM Consult Order [facility] Jul 26, 2024 04:19 PM Consult Order [facility]HEMATOLOG[facility] Cons [facility] Lab Results: +/- 30 days of the encounter This section includes the Chemistry and Hematology Lab Results on record with [place] for the patient. Radiology Reports and Pathology Reports are provided separately, in subsequent sections. Lab Results This section contains the Chemistry/Hematology Results that were resulted 30 days before or 30 daysafter the date of the Encounter. Date/Time Source Result Type Result - Unit Interpretation Reference Range Specimen Type Comment Jun 22, 2024 02:57 PM [place] URINALYSIS URINE Specimen Type: URINE Comment: If Glucose = >500 and Ketones are positive, please alert the Physician. Ordering Provider: JESSICA MCCURDY Report Released Date/Time: May 24, 2024 02:10 PM Reporting Lab: [facility] [address] [facility] [address] Performing Lab: [address] [address] UA COLOR Light-Yellow Yellow UA APPEARANCE Clear Clear UA GLUCOSE Normal mg/dL Negative UA KETONES NEGATIVE mg/dL Negative UA BLOOD NEGATIVE mg/dL Negative UA PROTEIN NEGATIVE mg/dL Negative UA NITRITE NEGATIVE mg/dL Negative UA BILIRUBIN NEGATIVE mg/dL Negative UA SPECIFIC GRAVITY 1.029 H 1.016-1.022 UA pH 5.5 5.0-9.0 UA UROBILINOGEN Normal mg/dL <2.0 UA LEUKOCYTE NEGATIVE Negative Jun 22, 2024 02:57 PM [place] MICROALBUMIN CREATININE RATIO PANEL URINE Specimen Type: URINE No comment entered. Ordering Provider: JESSICA MCCURDY Report Released Date/Time: May 24, 2024 02:10 PM Reporting Lab: [address] [address] Performing Lab: [address] [address] MICROALBUMIN/CREATININE RATIO 6.3 mg/g 0 -29.9 MICROALBUMIN,QUANTITATIVE 0.8 mg/dL RR U NAVAIL CREATININE URINE 127.87 mg/dL Jun 22, 2024 01:35 PM [place] URIC ACID SERUM Sp ecimen Type: SERUM No comment entered. Ordering Provider: JESSICA MCCURDY Report Released Date/Time: May 24, 2024 02:10 PM Reporting Lab: [address] [address] Performing Lab: [address] [address] URIC ACID 6.1 mg/dL 3.5-7.2 Jun 22, 2024 01:35 PM [place] VITAMIN D (25-OH) SERUM Specimen Type: SERUM No comment entered. Ordering Provider: JESSICA MCCURDY Report Released Date/Time: May 24, 2024 02:10 PM Reporting Lab: [address] [address] Performing Lab: [address] [address] VITAMIN D (25-OH) 15 ng/mL L 20-50 Jun 22, 2024 01:35 PM [place] CBC AND DIFF (AUTO) BLOOD Specimen Ty pe: BLOOD No comment entered. Ordering Provider: JESSICA MCCURDY Report Released Date/Time: May 24, 2024 02:10 PM Reporting Lab: [address] [address] Performing Lab: [address] [address] WBC 5.15 10*3/uL 4.50-11.00 RBC 5.35 10*6/uL [...] 0.4 0.0-0.7 IMMATURE GRAN, ABS 0.02 10*3/uL 0.00-0.0 6 NRBC % 0.0 0.0-0.0 NRBC, ABS 0.00 10*3/uL 0.00-0.00 Jun 22, 2024 01:35 PM [place] FERRITIN SERUM Sp ecimen Type: SERUM No comment entered. Ordering Provider: JESSICA MCCURDY Report Released Date/Time: May 24, 2024 02:10 PM [facility] [address] [address] Performing [facility] [address] [address] FERRITIN 304 ng/mL H 20-300 Jun 22, 2024 01:35 PM [place] TSH SERUM Sp ecimen Type: SERUM No comment entered. Ordering Provider: JESSICA MCCURDY Report Released Date/Time: May 24, 2024 02:10 PM [facility] [address] [address] Performing Lab: [address] [address] TSH 1.30 u[IU]/mL 0.35-5.00 Jun 22, 2024 01:35 PM [place] HEMOGLOBIN A1C PANEL BLOOD Specimen T ype: BLOOD Comment: Values obtained from A1C measurements can vary. For atypical A1C assays, a reported value of 7.0 could actually be between 6.72 and 7.28 if measured by a reference method. A reported value of 9.0 could actually be between 8.73 and 9.27. Ref: http://www.ngsp.org/CAPdata.asp Ordering Provider: JESSICA MCCURDY Report Released Date/Time: May 24, 2024 02:10 PM Reporting Lab: [address] [address] Performing Lab: [address] [address] HEMOGLOBIN A1C 4.4 4.0-5.6 Jun 22, 2024 01:35 PM [place] PSA SERUM Sp ecimen Type: SERUM No comment entered. Ordering Provider: JESSICA MCCURDY Report Released Date/Time: May 24, 2024 02:10 PM Reporting Lab: [address] [address] Performing Lab: [address] [address] PSA 0.34 ng/mL 0.00-4.00 Jun 22, 2024 01:35 PM [place] BASIC METABOLIC PANEL (fasting) SERUM Specimen Type: SERUM No comment entered. Ordering Provider: JESSICA MCCURDY Report Released Date/Time: May 24, 2024 02:10 PM Reporting Lab: [address] [address] Performing Lab: [address] [address] [facility] NITROGEN 18 mg/dL 7-25 GLUCOSE 95 mg/dL 65-100 SODIUM 141 mmol/L 135-145 POTASSIUM 4.1 mmol/L 3.5-5.0 CHLORIDE 105 mmol/L 100-110 CO2 24 meq/L 20-30 CREATININE, Serum 0.77 mg/dL 0.50-1.40 eGFR(CKD-EPI 2020) >90 mL/min >60 Jun 22, 2024 01:35 PM [place] LIVER FUNCTION SERUM Specimen Type: SERUM No comment entered. Ordering Provider: JESSICA MCCURDY Report Released Date/Time: May 24, 2024 02:10 PM Reporting Lab: [address] [address] Performing Lab: [address] [address] PROTEIN,TOTAL 7.8 g/dL 6.0-8.3 ALBUMIN 4.7 g/dL 3.5-5.0 ALKALINE PHOSPHATASE 81 U/L 40-150 AST 23 U/L 5-34 ALT 45 U/L BILIRUBIN, TOTAL 1.0 mg/dL 0.2-1.2 Jun 22, 2024 01:35 PM [place] LIPID PANEL FASTING SERUM Specimen Ty pe: SERUM No comment entered. Ordering Provider: JESSICA MCCURDY Report Released Date/Time: May 24, 2024 02:10 PM Reporting [facility] [address] [address] Performing Lab: [address] [address] CHOLESTEROL 264 mg/dL H TRIGLYCERIDE 353 mg/dL H 0-150 LDL calculated Reflex to dLDL mg/dL 0-12 9 CHOL/HDL 5.7 HDL CHOLESTEROL 46 mg/dL 40-60 LDL DIRECT 168 mg/dL H Jun 22, 2024 01:35 PM [place] CALCIUM SERUM Sp ecimen Type: SERUM No comment entered. Ordering Provider: JESSICA MCCURDY Report Released Date/Time: May 24, 2024 02:10 PM Reporting Lab: [address] [address] Performing Lab: [address] [address] CALCIUM 9.9 mg/dL 8.5-10.2 Vital Signs: All [...] and tobacco- related health factors from the [place] facility where the Encounter took place. Current Smoking Status This section includes the most current smoking, or tobacco-related health factor, from the [place] facility where the Encounter took place. Date/Time Current Smoking Status Comment Facil ity May 24, 2024 01:00 PM [facility] NEVER USED [place] Radiology Reports: +/- 30 days of the [...] the Encounter. The data comes from all [place] treatment facilities. Date/Time Radiology Report Provider Source Jun 22, 2024 08:10 AM CHEST (2 VIEWS): JESSICABERRY A [id number] -[id number] M Exm Date: JUN 22, 2024@08:10 Req Phys: JESSICA MCCURDY Loc: CWM/SO/PACT 3 WH (Req'g Loc) Img Loc: [facility] 1 Service: [facility] [place] [address] (Case [id number] COMPLETE) CHEST (2 VIEWS) (RAD Detailed) CPT:63970 Reason for Study: HTN Clinical History: baseline any megaly? Report Status: Verified Date Reported: JUN 22, 2024 Date Verified: JUN 22, 2024 Resource Conservation Manager E-Sig: Report: CHEST (2 VIEWS) HISTORY: Hypertension, baseline COMPARISON: None TECHNIQUE: Images were obtained at the local [place], and then submitted to the National Teleradiology [...] process identified. READING PHYSICIAN: Anselmo Franco M.D. -[phone] 06/22/2024 9:20 [facility] National Teleradiology Program [phone] (For Medical Practitioner Use Only) Attention Patients / Veterans: If you have questions or concerns about these test results, please contact your ordering provider or primary care team. Primary Diagnostic Code: NO ALERT REQUIRED Primary Interpreting Staff: RADIOLOGY,OUTSIDE SERVICE, Staff Physician / RADIOLOGY,OUTSIDE SERVICE [facility] Jun 18, 2024 02:15 PM OUTSIDE MRI LUMBAR SPINE: BERRY LOPEZ [id number] -[id number] M Exm Date: JUN 18, 2024@14:15 Req Phys: JESSICA MCCURDY Loc: SPR PACT 3 PA WH (Req'g Loc) Img Loc: OUTSIDE GENERAL RADIOLOGY Service: Unknown (Case 61 COMPLETE) OUTSIDE MRI LUMBAR SPINE (RAD Detailed) CPT:55365 Reason for Study: R hip pain Clinical History: i suspect ligament tear Right anterior hip Report Status: Electronically Filed Date Reported: AUG 16, 2024 Report: MADELINE SEE REPORT IN VISAT IMAGING. Impression: MADELINE SEE REPORT IN VISAT IMAGING. Primary Diagnostic Code: VERIFIED BY: / *ELECTRONICALLY FILED* [facility] Jun 18, 2024 02:00 PM OUTSIDE MRI LOWER_EXT ANY JOINT WO CONTRAST: BERRY LOPEZ [id number] -[id number] M Exm Date: JUN 18, 2024@14:00 Req Phys: JESSICA MCCURDY Loc: SPR PACT 3 PA WH (Req'g Loc) Img Loc: OUTSIDE GENERAL RADIOLOGY Service: Unknown (Case [id number] COMPLETE) OUTSIDE MRI LOWER_EXT ANY JOINT W(RAD Detailed) CPT:66156 Reason for Study: chronic lbp Clinical History: plain films outside A unremarkable non radicularr Report Status: Electronically Filed Date Reported: SEP 06, 2024 Report: MADELINE SEE REPORT IN VISAT IMAGING. Impression: MADELINE SEE REPORT IN VISAT IMAGING. Primary Diagnostic Code: VERIFIED BY: / *ELECTRONICALLY FILED* [facility] Encounter Notes: All [...] - still awaiting that MRI RTC? ask clinical editor Medication Reconciliation: Outpatient: Has the patient been taking medications as documented in the EMLR? YES: The patient has been taking medications as documented in the EMLR. Essential Medication List for Review used to complete this medication reconciliation. INCLUDED IN THIS LIST: Alphabetical list of active outpatient prescriptions dispensed from this [place] (local) and dispensed from another [place] or [facility] facility (remote) as well as inpatient [...] provider. /holli/ JESSICA MCCURDY PA-C STAFF PHYSICIAN TRANSPORT TRUCK DRIVER Signed: 07/17/2024 12:16 07/17/2024 ADDENDUM STATUS: COMPLETED new pt please assign permanent pact team /ernesto MCCURDY PA-C STAFF PHYSICIAN TRANSPORT TRUCK DRIVER Signed: 07/17/2024 12:17 Receipt Acknowledged By: 07/23/2024 08:59 /holli/ MIKAL BRANCH NP NURSE PRACTITIONER 07/23/2024 ADDENDUM STATUS: COMPLETED Please reassign to [facility] PACT 5 and establish an appointment within the next 120-150 days. Thank you. /ernesto BRANCH NP NURSE PRACTITIONER Signed: 07/23/2024 09:00 Receipt Acknowledged By: 07/24/2024 09:27 /holli/ TENZIN HOOPER ADVANCED SURGICAL GARMENT ASSEMBLY SUPERVISOR 08/03/2024 09:25 /holli/ JEROMY REYEZ GROOMING SALON MANAGER 07/26/2024 20:11 /ernesto JUAN RETAIL CUSTOMER SERVICE REPRESENTATIVE SURGICAL GARMENT ASSEMBLY SUPERVISOR 07/24/2024 ADDENDUM STATUS: COMPLETED THIS HOME ASSESSMENT NURSE HAD SPOKEN TO IN CLINIC TO SCHEDULE F2F APPT WITH CWM/SO/PACT 5 PROVIDER ON 09/17/2024 AT 11:30AM FOR NEW PATIENT 30 MINUTES ( IS A CWM/SO/PACT 3 TRANSFER). /holli/ TENZIN HOOPER ADVANCED SURGICAL GARMENT ASSEMBLY SUPERVISOR Signed: 07/24/2024 09:34 08/22/2024 ADDENDUM STATUS: COMPLETED Message delivered via phone call. All questions answered. /holli/ BERRY SUNG RN REGISTERED NURSE Signed: 08/22/2024 16:10 KAREN JOSEPH HAO Jul 23, 2024 08:59 AM ADDENDUM: LOCAL TITLE: Addendum STANDARD TITLE: ADDENDUM DATE OF NOTE: JUL 23, 2024@08:59:32 ENTRY DATE: JUL 23, 2024@08:59:33 AUTHOR: MIKAL BRANCH EXP COSIGNER: URGENCY: STATUS: COMPLETED Please reassign to [facility] PACT 5 and establish an appointment within the next 120-150 days. Thank you. 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 ask clinical editor Medication Reconciliation: Outpatient: Has the patient been [...] provider. /holli/ JESSICA MCCURDY PA-C STAFF PHYSICIAN TRANSPORT TRUCK DRIVER Signed: 07/17/2024 12:16 07/17/2024 ADDENDUM STATUS: COMPLETED new pt please assign permanent pact team /holli/ JESSICA MCCURDY PA-C STAFF PHYSICIAN TRANSPORT TRUCK DRIVER Signed: 07/17/2024 12:17 Receipt Acknowledged By: 07/23/2024 08:59 /holli/ MIKAL BRANCH NP NURSE PRACTITIONER 07/24/2024 ADDENDUM STATUS: COMPLETED THIS HOME ASSESSMENT NURSE HAD SPOKEN TO IN CLINIC TO SCHEDULE F2F APPT WITH CWM/SO/PACT 5 PROVIDER ON 09/17/2024 AT 11:30AM FOR NEW PATIENT 30 MINUTES ( IS A CWM/SO/PACT 3 TRANSFER). /holli/ TENZIN HOOPER ADVANCED SURGICAL GARMENT ASSEMBLY SUPERVISOR Signed: 07/24/2024 09:34 MIKAL BRANCH Jul 17, 2024 12:16 PM ADDENDUM: LOCAL TITLE: Addendum STANDARD TITLE: ADDENDUM DATE OF NOTE: JUL 17, 2024@12:16:55 ENTRY DATE: JUL 17, 2024@12:16:56 AUTHOR: JESSICA MCCURDY COSIGNER: URGENCY: STATUS: COMPLETED new pt please assign permanent pact team /holli/ JESSICA MCCURDY PA-C STAFF PHYSICIAN TRANSPORT TRUCK DRIVER Signed: 07/17/2024 12:17 Receipt Acknowledged By: 07/23/2024 08:59 /holli/ MIKAL BRANCH NP NURSE PRACTITIONER --- Original Document --- 07/17/24 [place] NOTE: S - here to f/u results mri R hip O - RADS: reviewed w/ pt A/P - 1) Minimal OA, R Side; 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 ask clinical editor Medication Reconciliation: Outpatient: Has the patient been taking medications as documented in the EMLR? YES: The patient has been taking medications as documented in the EMLR. Essential Medication List for Review used to complete this medication reconciliation. INCLUDED IN THIS LIST: Alphabetical list of active outpatient prescriptions dispensed from [facility] ([place]) and dispensed from another [place] or [facility] facility (remote) as well as inpatient [...] provider. /holli/ JESSICA MCCURDY PA-C STAFF PHYSICIAN TRANSPORT TRUCK DRIVER Signed: 07/17/2024 12:16 JESSICA MCCURDY Jul 17, 2024 11:58 AM PHYSICIAN ROSS So NOTE: LOCAL TITLE: [place] NOTE STANDARD TITLE: PHYSICIAN TRANSPORT TRUCK DRIVER NOTE DATE OF NOTE: JUL 17, 2024@11:58 [...] - still awaiting that MRI RTC? ask clinical editor Medication Reconciliation: Outpatient: Has the patient been taking medications as documented in the EMLR? YES: The patient has been taking medications as documented in the EMLR. Essential Medication List for Review used to complete this medication reconciliation. INCLUDED IN THIS LIST: Alphabetical list of active outpatient prescriptions dispensed from this [place] ([place]) and dispensed from another [facility] or [facility] facility (remote) as well as inpatient [...] provider. /holli/ JESSICA MCCURDY PA-C STAFF PHYSICIAN TRANSPORT TRUCK DRIVER Signed: 07/17/2024 12:16 07/17/2024 ADDENDUM STATUS: COMPLETED new pt please assign permanent pact team /holli/ JESSICA MCCURDY PA-C STAFF PHYSICIAN TRANSPORT TRUCK DRIVER Signed: 07/17/2024 12:17 Receipt Acknowledged By: 07/23/2024 08:59 /holli/ MIKAL BRANCH NP NURSE PRACTITIONER 07/23/2024 ADDENDUM STATUS: COMPLETED Please reassign to [facility] PACT 5 and establish an appointment within the next 120-150 days. Thank you. /holli/ MIKAL BRANCH NP NURSE PRACTITIONER Signed: 07/23/2024 09:00 Receipt Acknowledged By: 07/24/2024 09:27 /holli/ TENZIN HOOPER ADVANCED SURGICAL GARMENT ASSEMBLY SUPERVISOR 08/03/2024 09:25 /holli/ JEROMY REYEZ GROOMING SALON MANAGER 07/26/2024 20:11 /es/ DARREN JUAN RETAIL CUSTOMER SERVICE REPRESENTATIVE SURGICAL GARMENT ASSEMBLY SUPERVISOR 07/24/2024 ADDENDUM STATUS: COMPLETED THIS HOME ASSESSMENT NURSE HAD SPOKEN TO IN CLINIC TO SCHEDULE F2F APPT WITH CWM/SO/PACT 5 PROVIDER ON 09/17/2024 AT 11:30AM FOR NEW PATIENT 30 MINUTES ( IS A CWM/SO/PACT 3 TRANSFER). /es/ TENZIN HOOPER ADVANCED SURGICAL GARMENT ASSEMBLY SUPERVISOR Signed: 07/24/2024 09:34 08/18/2024 ADDENDUM STATUS: COMPLETED [...]
--- OUTSIDE RECORDS SUMMARY | 2024-11-27 15:11 | XMS_ITS | Encounter Summary ---
Author Name [facility] [place] [facility] [place] Address [address] [place] [id number] Care Team Providers Care Retail Greeter Name Role Phone JESSICA MCCURDY Primary Care Provider Unavailabl e Selected Encounter This section includes the information on record at [place] for the Encounter. Date/Time Encounter Type Encounter Description Reason Provider Source Sep 27, 2024 02:00 PM OFFICE O/P EST MOD 30 MIN PRIMARY CARE/MEDICINE ICD-10-CM I10 Essential (primary) hypertension GERMÁN CID Radha Encounter Template Text not used by [place] Assessments - Encounter Diagnoses This section includes the primary and secondary diagnoses documented for the Encounter. Date/Time Primary/Secondary Diagnosis Diagnosis Name Provider Source Sep 28, 2024 01:20 AM PRIMARY Essential (primary) hypertension JAVID CID [facility] Sep 28, 2024 01:20 AM SECONDARY Hemochromatosis, unspecified JAVID CID [facility] Sep 28, 2024 01:20 AM SECONDARY Obstructive sleep apnea (adult) (pediatric) JAVID CID [place] Sep 28, 2024 01:20 AM SECONDARY Other low back pain JAVID CID [place] Sep 28, 2024 01:20 AM SECONDARY Pain in right hip JAVID CID [place] Sep 28, 2024 01:20 AM SECONDARY Pure hypercholesterolemi a, unspecified JAVID CID [facility] Plan of Treatment: Future Appointments (+ 6 months) and Future Tests (+/- 45 days) The Plan of Treatment section includes future care activities for the patient from all [place] [facility]. This section includes future appointments and future orders which are active, pending or scheduled. Future Appointments This section includes appointments that were scheduled to occur 6 months from the date of the Encounter, up to a maximum of 20 appointments. The data comes from all [facility] facilities. Appointment Date/Time Appointment Type Appointme nt Facility Name Oct 01, 2024 08:30 AM AMBULATORY - MEDICINE [facility] Nov 13, 2024 08:00 AM AMBULATORY - MEDICINE [facility] [place] [facility] Dec 28, 2024 02:30 PM [facility] Vital Signs: All taken on the encounter date This section contains inpatient and outpatient Vital Signs collected on the date of the Encounter. Date/Time Temperature Pulse Blood Pressure Respiratory Rate SP02 Pain Height Weight Body Mass Index Source Sep 27, 2024 01:52 PM 91 113/80 96 208 33 [facility] IE Social History: Smoking Status (Most current) and Tobacco Use (All prior to encounter date) This section includes the most current, and the historical, smoking and tobacco- related health factors from the [place] facility where the Encounter took place. Current Smoking Status This section includes the most current smoking, or tobacco-related health factor, from the [place] facility where the Encounter took place. Date/Time Current Smoking Status Comment Gabe price May 24, 2024 01:00 PM [place]-TOBACCO NEVER USED [place] Encounter Notes: All associated encounter notes This section contains the clinical notes associated to the Encounter. Date/Time Encounter Note(s) Provider Source Sep 27, 2024 11:17 PM PHYSICIAN NOTE: LOCAL TITLE: MD NOTE STANDARD TITLE: PHYSICIAN NOTE DATE OF NOTE: SEP 27, 2024@23:17 ENTRY DATE: SEP 27, 2024@23:17:22 AUTHOR: WENDY CID EXP COSIGNER: URGENCY: STATUS: COMPLETED Chief complaint:Pt is a 49 year old who comes in for follow up of medical problems as noted below. PMH: Active problems - Computerized Problem List is the source for the followin. Screening for malignant neoplasm of colon done Last Survil Colonoscopy 2022; +Polyposis; no CRC repeat 2027 Initial Diagnost Colonoscopy Done Due to Hematochezia 2. Hypertension Heretofore Undiagnosed and Untreated HTN as of MAY 17 KARL Contributory Request EKG and CXR in MAY 17 as Baselines for Eval of HTN CXR, JUN 17: No Acute Pulmo Processes or Megaly 3. Hypercholesterolemia Not on Statin as of MAY 17 4. Hemochromatosis Dx approx 2003; Does Phlebotomies Every Two Months as of MAY 17; Goes to HEME at [facility] Is Hereditary Liver Bx approx 2003: Little Bit of Cirrhosis Does Serial US's of ABD as Directed Outside [facility] Phlebotomies Happens at Two-Month Intervals; Needs Whole Day Off Work (makes him tired) 5. Obstructive sleep apnea syndrome Has CPAP 6. Rash Lateral Aspect, Orbital Bone R Eye; Pre-Malig?? pending DERM Eval 7. Pain in right hip joint X-Rays Outside [facility] Neg for Degen Arthritis Soft Tissue is Likley Etio of RHip Pain MRI, R Hip JUL 17: Mild OA; No AVN; Mario-Superior Labral Tear; Mild G. Max and Minmus Tendinopathy; Mild Ilio-Psoas Tendinosis Poss Quad Femoris Strain 8. Myofascial low back pain Non-Radicular LBP; Plain Films Outside [facility] Unremarkable; MRI, L-Spine [facility] AUG 18: Discogenic Changes L2-L3 ( L1-L2; Mild Central Left Disc Protrusion L5-S1 w/ Moderate Jt Arthropathy; LEFT Foraminal Disc Protrusion L4-L5 Which Abuts L4 Nerve Root; LEFt Sided Extra-Foraminal Disc Protrusion L3-L4 w/o Neural Impingement; Disc Bulging and Central Radial Annular Fissure L2-L3 w/o Signif Spin Stenosis; Small LEFT & RIGHT Para-Central Disc Protrusion L1-L2 refer Pain Cl[facility] in AUG 18 Allergies: TRAMADOL The following VA and Non-VA meds were reconciled with patient: Active and Recently Outpatient Medications (excluding Supplies): Active Outpatient Medications Status = 1) CHOLECALCIF 50MCG (D3-2,000UNIT) TAB TAKE ONE TABLET BY ACTIVE MOUTH ONCE DAILY FOR VITAMIN SUPPLEMENTATION Indication: FOR VITAMIN D DEFICIENCY 2) LISINOPRIL 10MG TAB TAKE ONE TABLET BY MOUTH ONCE DAILY TO ACTIVE CONTROL BLOOD PRESSURE Indication: FOR HIGH BLOOD PRESSURE 3) ROSUVASTATIN CA 40MG TAB TAKE ONE-HALF TABLET BY MOUTH ONCE ACTIVE DAILY Indication: FOR HIGH CHOLESTEROL Pending Outpatient Medications Status = 1) CYCLOBENZAPRINE HCL 5MG TAB TAKE ONE TABLET BY MOUTH EVERY PENDING EVENING Indication: FOR MUSCLE SPASM 2) MELOXICAM 15MG TAB TAKE ONE TABLET BY MOUTH ONCE DAILY PENDING NEEDED Indication: FOR PAIN 5 Total Medications No Active Remote Medications for this patient On examination: 113/80 (09/27/2024 13:52)97.9 F [36.6 C] (07/17/2024 12:17)19 (07/17/2024 12:17)91 (09/27/2024 13:52)X3 BMI: 32.6208 lb [94.35 kg] (09/27/2024 13:52) CC: 3 mo f/u, new pt visit Last Seen in PCP: Apr 2024, covering provider[facility]MA HPI: 49 y/o M with PMH of obesity (BMI 33), KARL on CPAP, HTN, HLD, hemochromatosis since 2003, chronic LBP, R hip pain came to clinic today for F2F visit. This is 1st visit with the by this PCP. [place] c/o chronic low back pain. No recent injury falls or trauma. 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 [place] MRI of his back in May 2024 and was sent to pain clinic. Pain is located in the middle of the lower back not tender to palpation Not radiating to legs or anywhere else. Pain is most pronounced when getting up from the chair and is present on walking and also has a pain at night when he lays down in bed until he finds a position that he can fall asleep does not wake him up from sleep. Also have a right hip pain for which he follows outside orthopedics appointment next week. [place] was diagnosed with sleep apnea 8 9 years ago has been wearing CPAP but machine that he has his old and needs to be possibly changed. Needs meds refilled. Pt denies any recent travel, sick contacts, fever, chills, cough, palpitations, CP, SOB, [place], numbness, tingling, weakness, dizziness, abd pain, N/V/D, dysuria, constipation, LE edema, BW changes. No changes in ET, can walk 4+ blocks, can climb 1-2 flight of stairs, denies any orthopnea, PND. Pt is compliant with medications. 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 FH: F DM, CAD; Outside PCP: not any more PE: GA: AOx3, middle age male, in NAD, pleasant, HEENT: NC/AT, MMM; Neck: supple, no LNs, no JVD; HRT: normal S1/S2, no MRGs Chest: CTA b/l normal breath sounds, no wheezing Abd: soft, NTTP, BS+ Extremities: no leg edema, no cyanosis b/l , PPP; Lower back: NTTP; muscle spasms bilateral; straight leg test bilateral negative Labs : No new labs Imaging/Tests: MRI L-S: Multilevel mild degenerative disc disease with bulging L5-S1 Assessment/Plan: chronic LBP, R hip pain: Chronic mild to moderate spondylosis degenerative disc disease: Never been treated Started Flexeril 5 to 10 mg at night as needed Started meloxicam 15 mg daily as needed Started PT agreed [facility] canceled, does not need it Right hip followed by outside orthopedics obesity (BMI 33): Declined move or nutrition for now wants to deal with low back pain first KARL on CPAP: Diagnosed outside 8 910 years ago May need new sleep study, Needs possibly new machine and to not for his ongoing CPAP respiratory consult now HTN, HLD: Blood pressure well-controlled -c/w lisinopril 10 mg Needs new LDL last LDL 168 Since that time started and continue on rosuvastatin 20 mg Hemochromatosis: Diagnosed 2003 On phlebotomy every 2 to 3 months Followed by outside heme-onc at [facility] Had a liver biopsy 20 years ago H/H stable normal May 2024 Records reviewed. New labs, imaging reviewed, discussed, questions answered. Meds refilled. [place] verbalized understanding of the plan and agreed to it. HM: Colonoscopy: Did not discuss today Vaccines: Did not discuss today RTC 6 mo or sooner PRN F2F visit Fasting labs prior Addendum: PACT 4 TEAM: Alert to PACT Nurses - Labs as necessary to address clinical status. See RTC above Narrative of this note is partially produced using [employer] voice recognition software. Some errors in words, composition, structure are possible. Medication Reconciliation: Outpatient: Has the patient been [...] all non-VA/Herbal/OTC medications were entered into CPRS. - If there were any medications the patient should no longer take, they were discontinued. - The patient/caregiver was instructed to update this list, discard old lists, and take this list to the next appointment, whether with a VA or non-VA provider. /holli/ Wendy Cid MD MD PRIMARY CARE PHYSICIAN Signed: 09/28/2024 01:20 WENDY CID Sep 27, 2024 01:53 PM PREVENTIVE MEDICIN E NURSING NOTE: LOCAL TITLE: CLINICAL REMINDERS/NURSING STANDARD TITLE: PREVENTIVE MEDICINE NURSING NOTE DATE OF NOTE: SEP 27, 2024@13:53 ENTRY DATE: SEP 27, 2024@13:53:17 AUTHOR: AUBREE ANDERSEN COSIGNER: URGENCY: STATUS: COMPLETED Influenza Immunization: Deferral / Refusal The patient declines to receive the recommended dose of seasonal influenza vaccine. Immunization: INFLUENZA, UNSPECIFIED FORMULATION Refusal Reason: PATIENT DECISION Patient refuses all immunization(s) in the FLU group Date Documented: 09/27/24 13:53 COVID-19 Immunization: Refused Moderna Monovalent COVID-19 vaccine Immunization: COVID-19 (MODERNA), MRNA, LNP-S, PF, 50 MCG/0.5 ML (AGES 12+ YEARS) Refusal Reason: PATIENT DECISION Patient refuses all immunization(s) in the COVID-19 group Date Documented: 09/27/24 13:53 /holli/ AUBREE ANDERSEN LPN Licensed Practical Nurse Signed: 09/27/2024 13:53 AUBREE ANDERSEN
== END 2024-11-27 13:51 | disposition home or self-care (01) ==
LOC: HO.BBR 13:50
PROVIDERS: Visit Provider Internal Medicine Medical Oncology
DX: Z13.89 Encounter for screening for other disorder (principal)

== ENCOUNTER 2024-11-29 17:00 | Outpatient (RCR) | payer OTHER, SELFPAY ==
--- NOTE | 2024-10-17 09:21 | MHC.PT.EP ---
[facility] [place] Office [place] Office [place] Office [address] [phone] F: [phone] F: [phone] F: [phone] F: [phone] Physical Therapy Plan of Care Date of Evaluation: 10/17/24 Date of Surgery: NA Diagnosis: R HIP PAIN & LUMBAR DEGENERATIVE DISC DISEASE Assessment: Pt IS 49 YO M REFERRED TO PT FROM [facility]THO ([facility]) WITH R HIP PAIN AND LUMBAR DDD. PER MRI, Pt WITH MULTIPLE AREAS OF DISC ISSUES L SPINE AND ANTEROSUPERIOR LABRAL TEAR ON R ALONG WITH HIPFLEXOR/QUAD STRAINS AND GLUT MM TENDONITIS. Pt PRESNETS WITH ANTALGIC GT, DECREASED R HIP ROM AND STRENGTH, POOR CORE STRENGTH. 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 SHOULD BENEIFIT FROM PT TO ADDRESS THESE ISSUES Frequency and Duration: The patient will be seen 2X/WK X 6 WKS Short Term Goals: 1. INCREASED AWARENESS POSTURE AND HIP/LB CARE 2. IMPROVED SLEEP 3. IMPROVED GT (Pt TO REPORT LESS LIMPING OVERALL) Hand Violin Maker Goals: 1. I HEP WITH DC EX PLAN 2. DECREASED R HIP PAIN AT LEAST 50% WITH ADLS 3. DECREASED BACK PAIN AT LEAST 50% WITH ADLS 4. IMPROVED LEFI (32/80 SOC) Treatment Plan: Modalities to reduce pain, spasms and effusion. Manual therapy to restore motion and function. Therapeutic exercise to improve strength and flexibility. Neuromuscular re-education for posture and balance. Therapeutic activities to return to functional activities of daily living. Electronically signed by: JULIANO WYATT PT Please sign and return to therapist. Thank you for your referral.
--- NOTE | 2025-03-06 15:21 | MHC.PT.DC ---
[facility] [place] Office [place] Office [place] Office [address] Lois Aburto [address] [phone] F: [phone] F: [phone] F: [phone] F: [phone] Physical Therapy Discharge Report Diagnosis: R HIP PAIN & LUMBAR DEGENERATIVE DISC DISEASE Date of Surgery: NA Date of Evaluation: 10/17/24 Date of Discharge: 03/06/25 Treatments to Date: 11 Cancellations to Date: No Shows to Date: Discharge Status: Achieved Goals Improved Function Independent with HEP Discharge Summary: Pt independent w.HEP and gym routine. DC 11/29 Electronically signed by: JULIANO WYATT PT Please sign and return to therapist. Thank you for your referral.
== END 2025-03-06 15:21 | disposition home or self-care (01) ==
LOC: HO.PT 17:00
PROVIDERS: PCP Internal Medicine; Visit Provider Physician Assistant
DX: M76.891 Other specified enthesopathies of right lower limb, excluding foot (principal); M51.369 Other intervertebral disc degeneration, lumbar region without mention of lumbar back pain or lower extremity pain
CPT/HCPCS: 97110; 97162; 97530; 97535

== ENCOUNTER 2025-01-29 14:34 | Outpatient (REF) | payer OTHER, SELFPAY ==
--- OUTSIDE RECORDS SUMMARY | 2025-01-29 15:26 | XMS_ITS | Data Portability ---
Author Organization [facility], [address] Address [address] [place] [address] Care Team Providers Care Financial Recording Clerk Name Role Phone ROBLES DELAROSA Primary Care Provider Assessment No assessment recorded. Plan of Treatment Reminders Order Date Submit Date Provider Last Modified By Organization Details Last Modified Time Details Appointments None recorded. Lab None recorded. Referral None recorded. Procedures None recorded. Surgeries None recorded. Imaging None recorded. Medication Orders Bactrim DS 800 mg-160 mg tablet 2022 023 [facility] #[id number], [address] [place], [address], 11:29:17 ibuprofen 600 mg tablet 2022 023 [facility][id number], [address] [place], [address], 11:29:18 Patient TargetsNo targets recorded. Patient Instructions Encounter Date Encounter Id Patient Instructions Last Modified By Organization Details Last Modified Time 10/17/2022 [id number] cellulitis: care instructions [email or web address] Not available 10/17/2022 [...] 10/17/2022 10:42:24 biopsy of liver completed TEMO LUPICA PA - [facility] 10/17/2022 10:42:31 Imaging Results None recorded. Procedure Notes None recorded. Medical Equipment None Reported. Allergies Allergen ID Allergen Name Allergen Category Reaction Reaction Severity Criticality Documentation Date Start Date Code Code System Note Provider Name and Address Organization Details Recorded Time 979118 Substance with morphinan structure and opioid receptor agonist mechanism of action (substanc e) medicatio n dizziness vomiting Not available Not available Not available 10/17/2022 04649 9000 SNOMED TEMO maynard PA Etelvina [facility] 3 10:38:17 Medications Name Sig [...] Pulse oximetry Heart rate Respiratory rate Systolic And Diastolic Provider Name and Address Organization Details Last Updated DateTime 3 170.18 cm 32.1 kg/m2 79200.4 4 g 99.1 [degF] 98 % 98 % 97 /min 16 /min 141/97 mm[Hg] TEMO GREEN - [facility] 10:44:31 Social History Question Answer Notes LastModified by Organizat ion Details LastModified Time Tobacco Smoking Status Never Smoker [facility] [place] - [facility] 10/17/2022 10:42:03 Which Illicit Or Recreational Drugs Have You Used? Marijuana Occas [email or web address] Information not available 10/17/2022 Have You Recently Traveled Abroad? No [email or web address] Information not available 10/17/2022 Sex: Unknown Functional Status Question Answer Note LastModified by Organizat ion Details LastModified Time Do you use any illicit or recreational drugs? Yes [email or web address] Information not available 10/17/2022 Do you or have you ever used any other forms of tobacco or nicotine? No [email or web address] Information not available 10/17/2022 What is your level of alcohol consumption? Occasional [email or web address] Information not available 10/17/2022 Mental Status None recorded. Family History Relationship Description Onset Age of this Age Resolved Age Notes LastModified by Organization Details LastModified Time Father Diabetes mellitus Not available 2022 10:40:44 Father Myocardial infarction [email or web address] Not available 10/17 10:41:03 Paternal Grandfather Myocardial infarction [email or web address] Not available 10/17 10:40:59 Medical History No medical history recorded. Past Encounters Encounter ID Performer Location Encounter Start Date Encounter Closed Date Diagnosis/Indication Diagnosis SNOMED-CT Code Diagnosis ICD10 Code Diagnosis Note [id number] Chris Gant [place] [address] [address] 10/17/2022 09:43:03 10/17/2022 11:36:54 Cellulitis 268931114 L03.90 no abscess noterecomm end Po ABxsitz [...] Recorded Advance Directives Directive None Recorded Payers Insurance Date Sequence Insurance Name Policy Number Policy Wadsworth Covered Member ID Wadsworth Member ID Guarantor Name 10/18/2022 1 [facility] Ceferino Ortizonte [id number] Ceferino Pillo 10/18/2022 1 [facility] (O) [id number] Ceferino Ortizonte [id number] Ceferino Pillo Notes Date Note Type Note Provider Name and Address Organization Details Recorded Time 10/17/2022 text/html AbscessReported bypatient.Notes:47 yo malec/o abscess in the middle of buttocks+ pain+ drainageno bleeding+ subjective fever+ chillsno n/vno otc meds He had a colonoscopy a few years ago and has one booked for next month Chris Gant, DO [facility] [place], [address], [place] - [facility] 10/17/2022 11:29:46
== END 2025-01-29 14:35 | disposition home or self-care (01) ==
LOC: HO.BBR 14:34
PROVIDERS: PCP Internal Medicine; Visit Provider Internal Medicine Medical Oncology
DX: Z13.89 Encounter for screening for other disorder (principal)

== ENCOUNTER 2025-04-02 14:39 | Outpatient (REF) | payer OTHER, SELFPAY | END 2025-04-02 14:40 | disposition home or self-care (01) | LOC: HO.BBR 14:39 | PROVIDERS: Visit Provider Internal Medicine Medical Oncology | DX: Z13.89 Encounter for screening for other disorder (principal) ==

== ENCOUNTER 2025-06-04 14:51 | Outpatient (REF) | payer OTHER, SELFPAY ==
--- OUTSIDE RECORDS SUMMARY | 2025-06-04 16:37 | XMS_ITS | Data Portability ---
Author Organization [facility], [address] Address [address] [place] [address] Care Team Providers Care Marine Animal Trainer Name Role Phone ROBLES DELAROSA Primary Care Provider Assessment No assessment recorded. Plan of Treatment Reminders Order Date Submit Date Provider Last Modified By Organization Details Last Modified Time Details Appointments None recorded. Lab None recorded. Referral None recorded. Procedures None recorded. Surgeries None recorded. Imaging None recorded. Medication Orders Bactrim DS 800 mg-160 mg tablet 2022 023 [facility]Pharmacy #[id number], [address] [place], [address], 11:29:17 ibuprofen 600 mg tablet 2022 023 [facility] #[id number], [address] [place], [address], 11:29:18 Patient TargetsNo targets recorded. Patient Instructions Encounter Date Encounter Id Patient Instructions Last Modified By Organization Details Last Modified Time 10/17/2022 [id number] cellulitis: care instructions [email or web address] Not available 10/17/2022 11:29:15 Apply a warm compress to the affected area for 15-20 minutes at a time up to 4 times a day. [email or web address] Not available 10/17/2022 10:33:10 Reason for Referral [...] Name and Address Organization Details Recorded Time 107344 Substance with morphinan structure and opioid receptor agonist mechanism of action (substanc e) medicatio n dizziness vomiting Not available Not available Not available 10/17/2022 80443 9000 SNOMED TEMO maynard PA [facility] [...] Updated DateTime 3 170.18 cm 32.1 kg/m2 97464.4 4 g 99.1 [degF] 98 % 98 % 97 /min 16 /min 141/97 mm[Hg] TEMO GREEN - [facility] 10:44:31 Social History Question Answer Notes LastModified by Organizat ion Details LastModified Time Tobacco Smoking Status Never Smoker [facility] [place] - [facility] 10/17/2022 10:42:03 Which Illicit Or Recreational Drugs Have You Used? Marijuana Occas [email or web address] Information not available 10/17/2022 Have You Recently Traveled Abroad? No [email or web address] Information not available 10/17/2022 Sex: Unknown Functional Status Question Answer Note LastModified by Organizat ion Details LastModified Time Do you use any illicit or recreational drugs? Yes [email or web address] Information not available 10/17/2022 Do you or have you ever used any other forms of tobacco or nicotine? No [email or web address] Information not available 10/17/2022 What is your level of alcohol consumption? Occasional [email or web address] Information not available 10/17/2022 Mental Status None recorded. Family History Relationship Description Onset Age of this Age Resolved Age Notes LastModified by Organization Details LastModified Time Father Diabetes mellitus Not available 2022 10:40:44 Father Myocardial infarction [email or web address] Not available 10/17 10:41:03 Paternal Grandfather Myocardial infarction [email or web address] Not available 10/17 10:40:59 Medical History No medical history recorded. Past Encounters Encounter ID Performer Location Encounter Start Date Encounter Closed Date Diagnosis/Indication Diagnosis SNOMED-CT Code Diagnosis ICD10 Code Diagnosis IMO Codes Diagnosis Note [id number] Chris Gant DO [address] [address] 10/17/2022 09:43:03 10/17/2022 11:36:54 Cellulitis [id number] L03.90 no abscess noterecomm end Po ABxsitz [...] Wadsworth Member ID Guarantor Name 10/18/2022 1 [facility] Ceferinolisa Ferro [id number] Ceferino Pillo 10/18/2022 1 [facility] ([facility]) [id number] Ceferino Ortizonte [id number] Ceferino Pillo Notes Date Note Type Note Provider Name and Address Organization Details Recorded Time 10/17/2022 text/html AbscessReported by [email or web address] yo malec/o abscess in the middle of buttocks+ pain+ drainageno bleeding+ subjective fever+ chillsno n/vno otc meds He had a colonoscopy a few years ago and has one booked for next monthROS as noted in the HPI Chris Gant, DO [address] [place], [address], [place] - [facility] 10/17/2022 11:29:46
== END 2025-06-04 14:52 | disposition home or self-care (01) ==
LOC: HO.BBR 14:51
PROVIDERS: Visit Provider Internal Medicine Medical Oncology
DX: Z13.89 Encounter for screening for other disorder (principal)

== ENCOUNTER 2025-07-11 09:26 | Outpatient (REF) | payer OTHER, SELFPAY ==
[2025-07-11 10:16] LABS: MANUAL DIFF FLAG NO
[2025-07-11 10:20] LABS: Hematocrit 47.6 % (42.0-52.0); Hemoglobin 16.7 g/dl (14.0-18.0); Imm Gran Abs Auto 0.01 X10*3/uL (0.00-0.03); Imm Gran Pct Auto 0.2 % (0.0-0.4); Lymphocytes Absolute Auto 1.5 X10*3/uL (1.2-4.9); Mean Corpuscular HGB Conc 35.1 g/dl (31.0-36.0); Mean Corpuscular Hemoglobin 30.5 pg (27.0-33.0); Mean Corpuscular Volume 87.0 fL (80.0-98.0); NRBC Abs Auto 0.000 X10*3/uL (0.0-0.012); NRBC Pct Auto 0.0 /100WBC (0.0-0.2); Platelet Count 246 X10*3/uL (160-400); Red Blood Count 5.47 X10*6/uL (4.60-5.80); White Blood Count 5.8 X10*3/uL (4.8-10.8)
[2025-07-11 11:43] LABS: Ferritin 71 ng/mL (20-250); Iron 262 mcg/dL (45-160); Percent Iron Saturation 80 % (15-50); Total Iron Binding Capacity 326 mcg/dL (228-428); Unsaturated Iron Binding 64 ug/dL
== END 2025-07-11 09:27 | disposition home or self-care (01) ==
LOC: HO.BBR 09:26
PROVIDERS: PCP Internal Medicine; Visit Provider Nurse Practitioner Family
DX: E83.110 Hereditary hemochromatosis (principal)
CPT/HCPCS: 36415; 82728; 83540; 85025